=== PATIENT | female | born 1985 | race African-American/Black ===

== ENCOUNTER 2018-06-16 11:53 | Inpatient (IN) | payer MEDICAID ==
[~2018-06-16] VITALS: Ht 167.6 cm; Wt 90.7 kg
--- NOTE | 2018-06-16 11:54 | NUR ---
ED Nurse Note: Pt from home and brought in by ambulance due to abd. pain, sharp with N/V x 3 days. Hx of pancreatitis. Denies diarrhea. Pt is AAO x4, ambulates with assist. No respiratory distress. No signs of dehydration at this time.
[2018-06-16 12:00] VITALS: BP 140/89
[2018-06-16] MEDS ORDERED: Metoclopramide 10mg/2ml Inj IVP ONE (12:15)
[2018-06-16] MEDS ORDERED: Ketorolac 30mg Inj IV ONE (12:15)
--- NOTE | 2018-06-16 12:35 | NUR ---
ED Nurse Note: Collected blood and sent.
[2018-06-16 12:42] LABS: BASOPHILS % (AUTO) 0.9 % (0.0-2.0); EOSINOPHILS % (AUTO) 0.7 % (0.0-3.0); HEMATOCRIT 39.4 % (37.0-47.0); HEMOGLOBIN 12.2 G/DL (12.0-16.0); LYMPHOCYTES % (AUTO) 28.2 % (20.0-45.0); MEAN CORPUSCULAR VOLUME 84 FL (80-99); MONOCYTES % (AUTO) 8.4 % (1.0-10.0); NEUTROPHILS % (AUTO) 61.9 % (45.0-75.0); PLATELET COUNT 143 K/UL (150-450); RED BLOOD COUNT 4.69 M/UL (4.20-5.40); RED CELL DISTRIBUTION WIDTH 20.5 % (11.6-14.8); WHITE BLOOD COUNT 4.5 K/UL (4.8-10.8)
[2018-06-16 12:51] LABS: ANION GAP 14 mmol/L (5-15); BLOOD UREA NITROGEN 5 mg/dL (7-18); CALCIUM 9.3 MG/DL (8.5-10.1); CARBON DIOXIDE 21 MMOL/L (21-32); CHLORIDE 101 MMOL/L (98-107); CREATININE 0.9 MG/DL (0.55-1.30); POTASSIUM 3.9 MMOL/L (3.5-5.1); SODIUM 136 MMOL/L (136-145)
[2018-06-16 13:09] LABS: ALANINE AMINOTRANSFERASE 25 U/L (12-78); ALBUMIN 3.4 G/DL (3.4-5.0); ALBUMIN/GLOBULIN RATIO 0.7 (1.0-2.7); ALKALINE PHOSPHATASE 125 U/L (46-116); ASPARTATE AMINO TRANSFERASE 36 U/L (15-37); BILIRUBIN,TOTAL 0.7 MG/DL (0.2-1.0); CKMB 1.3 NG/ML (0.0-3.6)
[2018-06-16 13:26] LABS: APPEARANCE,URINE CLEAR; BILIRUBIN, URINE 1+ (NEGATIVE); GLUCOSE, URINE (UA) NEGATIVE (NEGATIVE); KETONES,URINE 4+ (NEGATIVE); LEUKOCYTE ESTERASE ,URINE 1+ (NEGATIVE); NITRITE,URINE NEGATIVE (NEGATIVE); PH,URINE 5 (4.5-8.0); PROTEIN,URINE 2+ (NEGATIVE); UROBILINOGEN,URINE 8 MG/DL (0.0-1.0)
[2018-06-16 13:34] LABS: COLOR,URINE YELLOW
--- NOTE | 2018-06-16 13:40 | NUR ---
ED Nurse Note: Pt taken to CT via tarun.
--- NOTE | 2018-06-16 13:51 | NUR ---
ED Nurse Note: Pt came back from CT.
[2018-06-16 14:00] VITALS: BP 152/80
--- NOTE | 2018-06-16 14:10 | NUR ---
ED Nurse Note: pt reports abd pain 10/, ERMD notified, no active n/v/d at this time.
[2018-06-16] MEDS ORDERED: Morphine Sulfate 2mg/ml Inj(IV/IM USE ONLY) IVP ONE (14:15)
--- NOTE | 2018-06-16 14:18 | Emergency Room Report ---
History of Present Illness General Chief Complaint: Abdominal Pain Source: Patient (Nu Cormier) Present Illness HPI 33-year-old female with history of pancreatitis here complaining of 2 days of severe abdominal pain and nausea vomiting. Reports that she was diagnosed with pancreatitis 6 years ago due to alcohol ingestion. She reports that she has not had any alcohol or any drug use. Denies recent travel and new medication use. States that her pain is epigastric radiating to back and diffuse abdomen as well as multiple bouts of nonbloody emesis. Patient is rating the pain 10 out of 10 and reports that she took a pill from her cousin which was a narcotic and did not help her with pain. Diarrhea or blood in stool. Fever, chills, URI symptoms. No chest pain, shortness of breath, palpitation, dizziness and headache. Patient appears in moderate distress and complaining of a lot of pain. She is here with her friend who she reports was on her way to drop him at the [facility] facility where she started having extreme pain and decided to come to the emergency room today. Patient denies having any recent blood work and having any primary care follow-up. His urinary symptoms (Nu Cormier) Allergies: Coded Allergies: No Known Allergies (Unverified , 06/16/18) Patient History Past Medical History: see triage record Past Surgical History: unable to obtain Social History: Reports: smoking Last Menstrual Period: Unknown Now: No Reviewed Nursing Documentation: PMH: Agreed; PSxH: Agreed (Nu Cormier) Nursing Documentation-PMH Hx Cardiac Problems: No - pancreatitis (Nu Cormier) Review of Systems All Other Systems: negative except mentioned in HPI (Nu Cormier) Physical Exam Vital Signs Date Time Temp Pulse Resp B/P (MAP) Pulse Ox O2 Delivery O2 Flow Rate FiO2 06/16/18 11:44 98.2 99 18 96 Room Air 06/16/18 12:00 140/89 Sp02 EP Interpretation: reviewed, normal General Appearance: alert, GCS 15, moderate distress Head: normocephalic, atraumatic Eyes: bilateral eye normal inspection, bilateral eye PERRL ENT: normal ENT inspection, hearing grossly normal, normal voice Neck: normal inspection, full range of motion, supple Respiratory: normal inspection, chest non-tender, lungs clear, no rhonchi, no wheezing Cardiovascular #1: normal inspection, regular rate, rhythm, no edema, no murmur , normal capillary refill Gastrointestinal: no mass, no organomegaly, no peritonitis, no bruit, non- distended, no hernia, no pulsatile mass, guarding - epigastric and diffuse Rectal: deferred Genitourinary: no CVA tenderness Musculoskeletal: normal inspection, back normal Neurologic: normal inspection, alert, oriented x3 Psychiatric: normal inspection, judgement/insight normal Skin: normal inspection, normal color, no rash, warm/dry, palpation normal Lymphatic: normal inspection, no adenopathy (Nu Cormier) Medical Decision Making PA Attestation All my diagnosis and treatment plans were reviewed ad discussed with my supervising physician Dr. Arechiga (Nu Cormier) Diagnostic Impression: Primary Impression: Pancreatitis Additional Impression: Midgut volvulus ER Course 33-year-old female with history of pancreatitis here complaining of 2 days of severe abdominal pain and nausea vomiting. Reports that she was diagnosed with pancreatitis 6 years ago due to alcohol ingestion. She reports that she has not had any alcohol or any drug use. Denies recent travel and new medication use. States that her pain is epigastric radiating to back and diffuse abdomen as well as multiple bouts of nonbloody emesis. Patient is rating the pain 10 out of 10 and reports that she took a pill from her cousin which was a narcotic and did not help her with pain. Diarrhea or blood in stool. Fever, chills, URI symptoms. No chest pain, shortness of breath, palpitation, dizziness and headache. Patient appears in moderate distress and complaining of a lot of pain. She is here with her friend who she reports was on her way to drop him at the [facility] facility where she started having extreme pain and decided to come to the emergency room today. Patient denies having any recent blood work and having any primary care follow-up. His urinary symptoms Ddx considered but are not limited to: appendicitis, cholycisitis, gastritis, gasthroentritis, UTI, pylonephritis, SBO, diverticulitis, influenza with GI manifestation, DC, complication with , pancreatitis Vital signs: are WNL, pt. 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 Patient was noted to have prior history of pancreatitis and similar symptoms to her current. laboratory testing laboratory testing showed markedly elevated lipase consistent with pancreatitis. CT imaging was ordered to patient's elevated lipase and concern for possible gallstone pancreatitis. CT imaging read by radiology showed peripancreatic stranding suggesting pancreatitis without pseudocyst. 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 Fatty liver. was contacted for surgical consult. Patient was started on IV fluids as well as IV pain medications. . Dr. Billy Esquivel was contacted for inpatient management due to panel physician. Labs Test 06/16/18 12:30 06/16/18 13:13 White Blood Count 4.5 K/UL (4.8-10.8) Red Blood Count 4.69 M/UL (4.20-5.40) Hemoglobin 12.2 G/DL (12.0-16.0) Hematocrit 39.4 % (37.0-47.0) Mean Corpuscular Volume 84 FL (80-99) Mean Corpuscular Hemoglobin 25.9 PG (27.0-31.0) Mean Corpuscular Hemoglobin Concent 30.9 G/DL (32.0-36.0) Red Cell Distribution Width 20.5 % (11.6-14.8) Platelet Count 143 K/UL (150-450) Mean Platelet Volume 6.8 FL (6.5-10.1) Neutrophils (%) (Auto) 61.9 % (45.0-75.0) Lymphocytes (%) (Auto) 28.2 % (20.0-45.0) Monocytes (%) (Auto) 8.4 % (1.0-10.0) Eosinophils (%) (Auto) 0.7 % (0.0-3.0) Basophils (%) (Auto) 0.9 % (0.0-2.0) Sodium Level 136 MMOL/L (136-145) Potassium Level 3.9 MMOL/L (3.5-5.1) Chloride Level 101 MMOL/L (98-107) Carbon Dioxide Level 21 MMOL/L (21-32) Anion Gap 14 mmol/L (5-15) Blood Urea Nitrogen 5 mg/dL (7-18) Creatinine 0.9 MG/DL (0.55-1.30) Estimat Glomerular Filtration Rate > 60 mL/min (>60) Glucose Level 98 MG/DL (74-106) Calcium Level 9.3 MG/DL (8.5-10.1) Total Bilirubin 0.7 MG/DL (0.2-1.0) Aspartate Amino Transf (AST/SGOT) 36 U/L (15-37) Alanine Aminotransferase (ALT/SGPT) 25 U/L (12-78) Alkaline Phosphatase 125 U/L (46-116) Creatine Kinase MB 1.3 NG/ML (0.0-3.6) Troponin I 0.000 ng/mL (0.000-0.056) Total Protein 8.1 G/DL (6.4-8.2) Albumin 3.4 G/DL (3.4-5.0) Globulin 4.7 g/dL Albumin/Globulin Ratio 0.7 (1.0-2.7) Lipase > 2000 U/L (73-393) Serum Alcohol < 3 mg/dL Urine Color Yellow Urine Appearance Clear Urine pH 5 (4.5-8.0) Urine Specific [place] 1.025 (1.005-1.035) Urine Protein 2+ (NEGATIVE) Urine Glucose (UA) Negative (NEGATIVE) Urine Ketones 4+ (NEGATIVE) Urine Blood 1+ (NEGATIVE) Urine Nitrite Negative (NEGATIVE) Urine Bilirubin 1+ (NEGATIVE) Urine Ictotest Negative (NEGATIVE) Urine Urobilinogen 8 MG/DL (0.0-1.0) Urine Leukocyte Esterase 1+ (NEGATIVE) Urine RBC 0-2 /HPF (0 - 2) Urine WBC 0-2 /HPF (0 - 2) Urine Squamous Epithelial Cells Few /LPF (NONE/OCC) Urine Bacteria Occasional /HPF (NONE) Urine Mucus Many /LPF (NONE/OCC) Urine HCG, Qualitative Negative (NEGATIVE) Urine Opiates Screen Positive (NEGATIVE) Urine Barbiturates Screen Negative (NEGATIVE) Phencyclidine (PCP) Screen Negative (NEGATIVE) Urine Amphetamines Screen Negative (NEGATIVE) Urine Benzodiazepines Screen Negative (NEGATIVE) Urine Cocaine Screen Negative (NEGATIVE) Urine Marijuana (THC) Screen Positive (NEGATIVE) (Carlin Arechiga MD) EKG Diagnostic Results Rate: normal Rhythm: NSR ST Segments: no acute changes (Nu Cormier) Chest X-Ray Diagnostic Results Chest X-Ray Diagnostic Results : Chest X-Ray Ordered: Yes # of Views/Limited/Complete: 1 View Indication: Other - abdominal pain EP Interpretation: Yes PA Xray: Interpretation reviewed, by supervising MD, and agrees with findings. Interpretation: no consolidation, no effusion, no pneumothorax, no acute cardiopulmonary disease Impression: No acute disease Electronically Signed by: nu mckenzie PA-C (Nu Cormier) CT/MRI/US Diagnostic Results CT/MRI/US Diagnostic Results : Imaging Test Ordered: abdominal and pelvic chest Impression CT CHEST Without Contrast: No acute process. CT ABDOMEN & PELVIS Without Contrast: Peripancreatic stranding suggesting pancreatitis. No pseudocyst. Bowel malrotation. Apparent swirling of bowel and vasculature in the mesentery suggesting midgut volvulus. No bowel obstruction. Fatty liver. (Nu Cormier) Last Vital Signs Date Time Temp Pulse Resp B/P (MAP) Pulse Ox O2 Delivery O2 Flow Rate FiO2 06/16/18 12:00 98.5 78 20 140/89 97 Room Air (Nu Cormier) Status: improved (Carlin Arechiga MD) Disposition: ADMITTED INPATIENT Condition: Stable Referrals: NOT CHOSEN IPA/,REFERRING (PCP) Patient Instructions: Abdominal Pain, Adult Nu Cormier June 16, 2018 14:18 Carlin Arechiga MD June 16, 2018 15:31
[2018-06-16] MEDS ORDERED: Morphine Sulfate 4mg/ml Inj (IV USE ONLY) IVP ONE (15:45)
--- NOTE | 2018-06-16 16:08 | NUR ---
ED Nurse Note: Report given to Artie MILLER of Med surg unit.
[2018-06-16 16:12] VITALS: BP 118/82
--- NOTE | 2018-06-16 16:17 | General Surgery Progress Note ---
General Surgery-Progress Note Subjective Reason for Consult abdominal pain Objective Last 24 Hour Vital Signs Date Time Temp Pulse Resp B/P (MAP) Pulse Ox O2 Delivery O2 Flow Rate FiO2 06/16/18 16:12 98.4 76 16 118/82 100 Room Air 06/16/18 14:00 97.9 86 16 152/80 98 Room Air 06/16/18 12:00 98.5 78 20 140/89 97 Room Air 06/16/18 11:54 99 18 Room Air 06/16/18 11:44 98.2 99 18 96 Room Air Respiratory: clear Abdomen: soft, flat, tenderness, decreased bowel sounds Extremities: no tenderness Laboratory Tests Test 06/16/18 12:30 06/16/18 13:13 White Blood Count 4.5 K/UL (4.8-10.8) L Red Blood Count 4.69 M/UL (4.20-5.40) Hemoglobin 12.2 G/DL (12.0-16.0) Hematocrit 39.4 % (37.0-47.0) Mean Corpuscular Volume 84 FL (80-99) Mean Corpuscular Hemoglobin 25.9 PG (27.0-31.0) L Mean Corpuscular Hemoglobin Concent 30.9 G/DL (32.0-36.0) L Red Cell Distribution Width 20.5 % (11.6-14.8) H Platelet Count 143 K/UL (150-450) L Mean Platelet Volume 6.8 FL (6.5-10.1) Neutrophils (%) (Auto) 61.9 % (45.0-75.0) Lymphocytes (%) (Auto) 28.2 % (20.0-45.0) Monocytes (%) (Auto) 8.4 % (1.0-10.0) Eosinophils (%) (Auto) 0.7 % (0.0-3.0) Basophils (%) (Auto) 0.9 % (0.0-2.0) Sodium Level 136 MMOL/L (136-145) Potassium Level 3.9 MMOL/L (3.5-5.1) Chloride Level 101 MMOL/L (98-107) Carbon Dioxide Level 21 MMOL/L (21-32) Anion Gap 14 mmol/L (5-15) Blood Urea Nitrogen 5 mg/dL (7-18) L Creatinine 0.9 MG/DL (0.55-1.30) Estimat Glomerular Filtration Rate > 60 mL/min (>60) Glucose Level 98 MG/DL (74-106) Calcium Level 9.3 MG/DL (8.5-10.1) Total Bilirubin 0.7 MG/DL (0.2-1.0) Aspartate Amino Transf (AST/SGOT) 36 U/L (15-37) Alanine Aminotransferase (ALT/SGPT) 25 U/L (12-78) Alkaline Phosphatase 125 U/L (46-116) H Creatine Kinase MB 1.3 NG/ML (0.0-3.6) Troponin I 0.000 ng/mL (0.000-0.056) Total Protein 8.1 G/DL (6.4-8.2) Albumin 3.4 G/DL (3.4-5.0) Globulin 4.7 g/dL Albumin/Globulin Ratio 0.7 (1.0-2.7) L Lipase > 2000 U/L (73-393) H Serum Alcohol < 3 mg/dL Urine Color Yellow Urine Appearance Clear Urine pH 5 (4.5-8.0) Urine Specific [place] 1.025 (1.005-1.035) Urine Protein 2+ (NEGATIVE) H Urine Glucose (UA) Negative (NEGATIVE) Urine Ketones 4+ (NEGATIVE) H Urine Blood 1+ (NEGATIVE) H Urine Nitrite Negative (NEGATIVE) Urine Bilirubin 1+ (NEGATIVE) H Urine Ictotest Negative (NEGATIVE) Urine Urobilinogen 8 MG/DL (0.0-1.0) H Urine Leukocyte Esterase 1+ (NEGATIVE) H Urine RBC 0-2 /HPF (0 - 2) Urine WBC 0-2 /HPF (0 - 2) Urine Squamous Epithelial Cells Few /LPF (NONE/OCC) Urine Bacteria Occasional /HPF (NONE) Urine Mucus Many /LPF (NONE/OCC) H Urine HCG, Qualitative Negative (NEGATIVE) Urine Opiates Screen Positive (NEGATIVE) H Urine Barbiturates Screen Negative (NEGATIVE) Phencyclidine (PCP) Screen Negative (NEGATIVE) Urine Amphetamines Screen Negative (NEGATIVE) Urine Benzodiazepines Screen Negative (NEGATIVE) Urine Cocaine Screen Negative (NEGATIVE) Urine Marijuana (THC) Screen Positive (NEGATIVE) H Assessment Additional Comments Pancreatitis Plan Additional Comments Requires ultrasound and G-I consultation and npo Fran Sun MD June 16, 2018 16:17
[2018-06-16 16:40] VITALS: BP 123/79
--- NOTE | 2018-06-16 16:40 | NUR ---
NURSE NOTES: Patient came to unit by tarun in stable condition. Alert and oriented x4. Complain of pain 8/10 on abdomen area and pain medication given by ER nurse. Will continue to monitor. Skin intact and dry. IV dressing intact and dry. Belonging checked. Bed lowest position. Call light within reach. Will continue to monitor.
--- NOTE | 2018-06-16 17:45 | Consultation ---
DATE OF CONSULTATION: 06/16/2018 CONSULTING PHYSICIAN: Fran Sun M.D. REFERRING PHYSICIAN: ER physician, Dr. Fritz. REASON FOR CONSULTATION: Abdominal pain. INDICATION: This is a 33-year-old, female, who presented to emergency room complaining of abdominal pain for three days. The pain is mainly located at the epigastrium and upper abdomen with radiation to her back. This pain has been associated with nausea and vomiting. She stated that she did not have any bowel movement but she has been she has been passing gas. 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 She stated that she usually has pancreatitis after drinking alcohol, spicy food, and greasy food and at this time she had a lobster after which she started having pain. PAST MEDICAL HISTORY: She denies allergies, asthma, diabetes, hypertension, cardiac, and renal diseases. PAST SURGICAL HISTORY: None. MEDICATIONS: None. SOCIAL HISTORY: The patient is a 33-year-old, female, who is single. Mother of two children. Unemployed. She smokes a cigar a day and she stated that she quit drinking a month ago. REVIEW OF SYSTEMS: Noncontributory. PHYSICAL EXAMINATION: GENERAL: The patient appeared to be a well-developed, well-nourished, 33-year-old, female, lying on the gurney, complaining of abdominal pain. HEENT: Head is normocephalic and atraumatic. Eyes, pupils are equal, round, and reactive to light. Mouth is clear. NECK: There is no palpable thyromegaly or adenopathy. CHEST: Clear to auscultation and percussion. HEART: No gallop or murmur. S1 and S2 are within normal limits. ABDOMEN: Mildly protuberant, but soft with tenderness at the epigastrium. There is no guarding or rebound tenderness. Bowel sounds are hypoactive. GENITALIA: Deferred. EXTREMITIES: Within normal limits. LABORATORY AND DIAGNOSTIC DATA: CBC has shown a WBC of 4500 with normal differential. Chemistry has shown the lipase over 2000. CAT scan of the abdomen has shown pancreatitis besides she has malrotation of the bowel but there is no bowel obstruction. ASSESSMENT: Acute pancreatitis. PLAN: The patient requires to be NPO on IV fluids and she requires a ultrasound of the gallbladder and GI consultation. Fran Sun M.D. DR: Dakotah JOB#: [id number] CC:
[2018-06-16] MEDS: Morphine Sulfate 2mg/ml Inj(IV/IM USE ONLY) IVP PRN ×2 (17:54→20:55)
--- NOTE | 2018-06-16 19:35 | NUR ---
HAND-OFF: Report given to Brenda MILLER. Patient in stable condition.
--- NOTE | 2018-06-16 19:50 | NUR ---
NURSE NOTES: Received pt from ANGELA Chowdhury. Pt awake, alert, and c/o pain. Bed in lowest position. Call light within reach. Will continue to monitor.
[2018-06-16 20:00] VITALS: BP 124/83
--- NOTE | 2018-06-16 21:06 | NUR ---
NURSE NOTES: Called and left a message with Dr. Esquivel regarding pts request for dilaudid instead of morphine. Awaiting call back.
--- NOTE | 2018-06-16 21:26 | NUR ---
NURSE NOTES: Dr. Esquivel gave orders for Dilaudid 1 mg Q3 and to DC morphine. Will input orders and will continue to monitor.
[2018-06-16 23:06] VITALS: BP 138/83
[2018-06-16] MEDS: HYDROmorphone 1mg/ml Carpuject IVP PRN (23:49)
[2018-06-17] MEDS: HYDROmorphone 1mg/ml Carpuject IVP PRN ×7 (03:04→21:06)
[2018-06-17 03:10] VITALS: BP 115/76
[2018-06-17 07:06] LABS: BASOPHILS % (AUTO) 0.5 % (0.0-2.0); EOSINOPHILS % (AUTO) 0.5 % (0.0-3.0); HEMATOCRIT 34.9 % (37.0-47.0); HEMOGLOBIN 10.9 G/DL (12.0-16.0); LYMPHOCYTES % (AUTO) 23.2 % (20.0-45.0); MEAN CORPUSCULAR VOLUME 85 FL (80-99); MONOCYTES % (AUTO) 8.2 % (1.0-10.0); NEUTROPHILS % (AUTO) 67.5 % (45.0-75.0); PLATELET COUNT 128 K/UL (150-450); RED BLOOD COUNT 4.11 M/UL (4.20-5.40); RED CELL DISTRIBUTION WIDTH 20.7 % (11.6-14.8); WHITE BLOOD COUNT 6.1 K/UL (4.8-10.8)
[2018-06-17 07:22] LABS: ALANINE AMINOTRANSFERASE 21 U/L (12-78); ALBUMIN 3.1 G/DL (3.4-5.0); ALBUMIN/GLOBULIN RATIO 0.8 (1.0-2.7); ALKALINE PHOSPHATASE 106 U/L (46-116); ANION GAP 14 mmol/L (5-15); ASPARTATE AMINO TRANSFERASE 27 U/L (15-37); BILIRUBIN,TOTAL 0.7 MG/DL (0.2-1.0); BLOOD UREA NITROGEN 4 mg/dL (7-18); CALCIUM 8.5 MG/DL (8.5-10.1); CARBON DIOXIDE 20 MMOL/L (21-32); CHLORIDE 101 MMOL/L (98-107); CREATININE 0.7 MG/DL (0.55-1.30); POTASSIUM 3.3 MMOL/L (3.5-5.1); SODIUM 135 MMOL/L (136-145)
--- NOTE | 2018-06-17 07:34 | NUR ---
NURSE NOTES: Received report from ANGELA Gutierrez. Rounding done with outgoing nurse. Patient a/o x4 lying on the bed. No respiratory distress noted. c/o abdominal pain as 8/10 and pain medicine will be given as MD ordered around 0900. Patient verbalized understanding. Patient keep NPO. Bed in lowest position, call light within reach. Will continue to monitor.
[2018-06-17 08:00] VITALS: BP 136/89
[2018-06-17] MEDS ORDERED: Gadavist 7.5mMol/7.5ml vial IV PRN (09:30)
--- NOTE | 2018-06-17 10:31 | Diagnostic Imaging Report ---
Indication: Chest and abdominal pain Technique: Continuous helical transaxial imaging of the chest, abdomen and pelvis was obtained from the thoracic inlet to the pubic symphysis. No IV contrast was administered. Coronal 2-D reformats were also obtained. Study obtained in a Siemens sensation [address] Total Dose length Product (DLP): 991.[address] Dose Index Volume (CTDIvol): 15.31 mGy Comparison: None Findings: The lungs are clear. There is no infiltrate or pleural effusion identified. No adenopathy seen. The liver is diffusely hypodense consistent with fatty infiltration. There is peripancreatic soft tissue stranding consistent with pancreatitis. There is evidence of a midgut malrotation with the twisting of the mesentery which has a sore-like appearance. The duodenum never crosses midline from right to left. There is no evidence of intestinal obstruction although contrast was not given orally. The uterus is noted. There is no ascites. There is no free air or evidence of pneumatosis. Breathing motion limits evaluation. Spleen is normal size. There is no hydronephrosis or nephrolithiasis. IMPRESSION: Evidence of acute pancreatitis. 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 No evidence of bowel obstruction. Fatty liver [facility] has communicated the preliminary results to the Emergency Department. Their findings are largely concordant with this report. The CT scanner at [facility] is accredited by the [employer] [place] [employer] and the scans are performed using dose optimization techniques as appropriate to a performed exam including Automatic Exposure control.
--- NOTE | 2018-06-17 11:18 | NUR ---
*-* NO INSURANCE INFORMATION IN THE BAR UNABLE TO SEND CLINICALS OR REVIEWS *-*
--- NOTE | 2018-06-17 11:52 | Diagnostic Imaging Report ---
Indication: Dyspnea Comparison: None A single view chest radiograph was obtained. Findings: Cardiomediastinal appearance is within normal limits for age. The lungs are clear. Left hemidiaphragm is elevated. Pulmonary vascularity is appropriate. The diaphragmatic contour is smooth and costophrenic angles are sharp. No pleural effusions are identified. The bones are unremarkable. Impression: Elevated left hemidiaphragm
[2018-06-17 12:00] VITALS: BP 137/91
--- NOTE | 2018-06-17 12:10 | Diagnostic Imaging Report ---
Indication:Abdominal pain Technique: Grayscale and duplex Doppler imaging of the abdomen performed. Comparison: None Findings: The liver is echogenic consistent with fatty infiltration. The gallbladder is unremarkable. Pancreas and aorta are not seen due to bowel gas. Both kidneys appear unremarkable. The spleen is normal in size. There is no biliary ductal dilatation identified. Doppler evaluation of the main portal vein shows patency. There is no ascites. No hydronephrosis seen. CBD is 2.5 mm. Impression: Fatty liver. Obscured pancreas and aorta. Please refer to the CT report
[2018-06-17] MEDS: LORazepam Inj 2mg/ml 1ml IV PRN (12:41)
--- NOTE | 2018-06-17 14:39 | General Surgery Progress Note ---
General Surgery-Progress Note Subjective Additional Comments still has pain but responds to medication Objective Last 24 Hour Vital Signs Date Time Temp Pulse Resp B/P (MAP) Pulse Ox O2 Delivery O2 Flow Rate FiO2 06/17/18 12:00 97.3 98 21 137/91 (106) 97 06/17/18 09:00 Room Air 06/17/18 08:00 98.6 73 20 136/89 (105) 98 06/17/18 03:10 97.8 75 115/76 (89) 100 06/16/18 23:06 98.3 80 138/83 (101) 100 06/16/18 21:00 Room Air 06/16/18 20:00 97.4 73 124/83 (97) 100 06/16/18 16:45 Room Air 06/16/18 16:40 98.3 73 18 123/79 (94) 98 06/16/18 16:34 98.0 83 20 122/78 100 Room Air 06/16/18 16:28 98.0 06/16/18 16:12 98.4 76 16 118/82 100 Room Air 06/16/18 14:53 98.0 Respiratory: clear Abdomen: soft, flat, tenderness, present bowel sounds Extremities: no tenderness Laboratory Tests Test 06/17/18 05:00 White Blood Count 6.1 K/UL (4.8-10.8) Red Blood Count 4.11 M/UL (4.20-5.40) L Hemoglobin 10.9 G/DL (12.0-16.0) L Hematocrit 34.9 % (37.0-47.0) L Mean Corpuscular Volume 85 FL (80-99) Mean Corpuscular Hemoglobin 26.6 PG (27.0-31.0) L Mean Corpuscular Hemoglobin Concent 31.3 G/DL (32.0-36.0) L Red Cell Distribution Width 20.7 % (11.6-14.8) H Platelet Count 128 K/UL (150-450) L Mean Platelet Volume 6.6 FL (6.5-10.1) Neutrophils (%) (Auto) 67.5 % (45.0-75.0) Lymphocytes (%) (Auto) 23.2 % (20.0-45.0) Monocytes (%) (Auto) 8.2 % (1.0-10.0) Eosinophils (%) (Auto) 0.5 % (0.0-3.0) Basophils (%) (Auto) 0.5 % (0.0-2.0) Sodium Level 135 MMOL/L (136-145) L Potassium Level 3.3 MMOL/L (3.5-5.1) L Chloride Level 101 MMOL/L (98-107) Carbon Dioxide Level 20 MMOL/L (21-32) L Anion Gap 14 mmol/L (5-15) Blood Urea Nitrogen 4 mg/dL (7-18) L Creatinine 0.7 MG/DL (0.55-1.30) Estimat Glomerular Filtration Rate > 60 mL/min (>60) Glucose Level 65 MG/DL (74-106) L Calcium Level 8.5 MG/DL (8.5-10.1) Total Bilirubin 0.7 MG/DL (0.2-1.0) Aspartate Amino Transf (AST/SGOT) 27 U/L (15-37) Alanine Aminotransferase (ALT/SGPT) 21 U/L (12-78) Alkaline Phosphatase 106 U/L (46-116) Total Protein 7.1 G/DL (6.4-8.2) Albumin 3.1 G/DL (3.4-5.0) L Globulin 4.0 g/dL Albumin/Globulin Ratio 0.8 (1.0-2.7) L Lipase > 2000 U/L (73-393) H Assessment Additional Comments pancreatitis Plan Additional Comments G-I consult Fran Sun MD June 17, 2018 14:39
--- NOTE | 2018-06-17 15:00 | Diagnostic Imaging Report ---
Indication: Acute pancreatitis. Abdominal pain Technique: MRI of the abdomen was performed in a 1.5 Bethanie magnet. Pulse sequences obtained include coronal and axial T2 single shot fast spin echo breathhold and respiratory gated coronal T2 3-D M.R.C.P.; this data set was displayed in different projections or MIPs. In addition, multiple coronal oblique thin T2 weighted, fat saturated SE sequences obtained through the CBD. Comparison: None Findings: The study is very limited due to breathing motion. The biliary ducts do not appear dilated. There is peripancreatic T2 hyperintense signal consistent with edema and inflammation. Midgut malrotation again noted with a swirl-like pattern of the dorsal mesenteric vessels. Gallbladder is noted. There is a fluid level within the gallbladder likely bilingual inside sales representative of sludge. IMPRESSION: Limited evaluation due to breathing motion. No evidence of biliary ductal dilatation or choledocholithiasis. Acute pancreatitis. Gallbladder sludge. Midgut malrotation
--- NOTE | 2018-06-17 15:54 | NUR ---
CASE MANAGEMENT:REVIEW 33 YR OLD FEMALE CRESENCIO FROM HOME CC: ABDOMINAL PAIN WITH NAUSEA AND VOMITING SI: PANCREATITIS. MID GUT VOLVULUS 98.3 99 18 134/100 96% ON RA PLT-143 LIPASE>2000 IS: IV REGLAN IV PEPCID IV TORADOL IV ZOFRAN IV MORPHINE MRI ABD : TO MED/SURG 3 E[facility] Addendum: 06/17/18 at 1603 by ZENAIDA LYONS LVN LVN IS: IVF@100/HR
[2018-06-17 16:00] VITALS: BP 135/80
--- NOTE | 2018-06-17 16:15 | History and Physical Report ---
DATE OF ADMISSION: 06/16/2018 REASON FOR ADMISSION: Pancreatitis. HISTORY OF PRESENT ILLNESS: This is a 33-year-old female, presented with abdominal pain for three days. The patient has had prior history of pancreatitis due to remote history of alcohol use, none recently. The patient with current bouts at present, has not been able to keep any food down. PAST MEDICAL HISTORY: Notable for the above. History of asthma, diabetes, and hypertension, is denied. SOCIAL HISTORY: She is a mother, unemployed. Quit drinking one month ago. PHYSICAL EXAMINATION: GENERAL: A well-developed female, comfortable. VITAL SIGNS: Reviewed. HEENT: Negative. NECK: Supple. LUNGS: Clear. CARDIAC: S1, S2. Regular rate and rhythm. ABDOMEN: Some epigastric tenderness. EXTREMITIES: No edema. LABORATORY DATA: Reviewed. IMPRESSION: Acute pancreatitis. RECOMMENDATIONS: 1. NPO. 2. Intravenous hydration. 3. Await improvement in subjective and objective symptoms, and await further GI recommendations. Billy Esquivel M.D. DR: ANDRES JOB#: [id number] CC:
--- NOTE | 2018-06-17 19:00 | Consultation ---
DATE OF CONSULTATION: 06/17/2018 GASTROENTEROLOGY CONSULTATION: CONSULTING PHYSICIAN: Riley Bolton M.D. CHIEF COMPLAINT: I was asked to see this patient by Dr. Billy Esquivel for evaluation of pancreatitis. HISTORY OF PRESENT ILLNESS: The patient is a 33-year-old, woman with a history of recurrent pancreatitis going back for about 5 to 6 years. She states she gets admitted to the hospital about 3 times a year each lasting about 3 to 4 days. She is not clear of any diagnosis, but she cannot recall ever having an MRI done or an ERCP performed. She still has a gallbladder. She does have alcohol consumption history, but she states she has basically cut her alcohol completely. She believes pancreatitis may be triggered by certain foods such as greasy foods or spicy foods. She came to the hospital with 3 to 4 days of abdominal pain, nausea, vomiting, and her lipase was significantly elevated consistent with pancreatitis. She cannot recall having any history of hypertriglyceridemia. PAST MEDICAL HISTORY: Otherwise unremarkable. FAMILY HISTORY: Noncontributory. PAST SURGICAL HISTORY: Status post x2. SOCIAL HISTORY: The patient is single. She has two children. She is unemployed. She smokes cigars and she intermittently uses marijuana. REVIEW OF SYSTEMS: Otherwise negative. PHYSICAL EXAMINATION: GENERAL: Obese, woman, seen in her room. HEENT: Normocephalic and atraumatic. Sclerae anicteric. Oropharynx clear. NECK: Supple. CHEST: Clear to auscultation. CARDIOVASCULAR: Revealed a regular rate. ABDOMEN: Soft. Tenderness to palpation in the epigastric region with mild voluntary guarding, but no rebound. EXTREMITIES: Revealed no edema. LABORATORY DATA: Noted. ASSESSMENT: This patient presents with an episode of recurrent pancreatitis of unclear etiology. Typically with this history, one would look for causes of chronic pancreatitis, which could include self-induced conditions such as alcohol use. The patient should have an MRI of her biliary tree to rule out stones, which have not been seen on other imaging modalities done previously and also pancreas divisum. She should also be checked for triglycerides. I advised the patient to go to the center for pancreatic excellence such as [facility] or [facility] or [facility] after this discharge in order to consult the center that has experience in handling the patients with chronic recurrent pancreatitis. For the time being, however, some of the workup, which may have not been done including an MRI will be performed. The patient should be considered for ERCP and/or a sphincter of Oddi manometry as an outpatient. RECOMMENDATIONS: 1. Continue NPO for now. 2. Pain control. 3. IV fluids. 4. MRI of the biliary tree. 5. Check a lipid profile. Thank you for asking me to participate in care of this patient. Riley Bolton M.D. DR: TOD JOB#: [id number] CC:
--- NOTE | 2018-06-17 19:40 | NUR ---
HAND-OFF: Report given to ANGELA Fischer. Patient is stable.
--- NOTE | 2018-06-17 19:45 | NUR ---
NURSE NOTES: Pt lying in bed w/bed in lowest position and call light within reach. Pt A&Ox4, VSS, and in no apparent distress at this time. IV site intact/asymptomatic w/IVF @ 100 ml/hr and skin intact. Will continue to monitor.
[2018-06-17 20:00] VITALS: BP 128/89
[2018-06-18] VITALS: BP 126/86
[2018-06-18] MEDS: HYDROmorphone 1mg/ml Carpuject IVP PRN ×8 (00:03→21:31)
[2018-06-18 04:00] VITALS: BP 128/78
[2018-06-18 07:07] LABS: ANION GAP 11 mmol/L (5-15); BLOOD UREA NITROGEN 2 mg/dL (7-18); CALCIUM 8.9 MG/DL (8.5-10.1); CARBON DIOXIDE 22 MMOL/L (21-32); CHLORIDE 101 MMOL/L (98-107); CHOLESTEROL 173 MG/DL (< 200); CREATININE 0.6 MG/DL (0.55-1.30); HDL CHOLESTEROL 50 MG/DL (40-60); POTASSIUM 3.9 MMOL/L (3.5-5.1); SODIUM 134 MMOL/L (136-145); TRIGLYCERIDES 62 MG/DL (30-150)
--- NOTE | 2018-06-18 07:30 | NUR ---
HAND-OFF: Report given to ANGELA Ohara.
--- NOTE | 2018-06-18 07:45 | NUR ---
NURSE NOTES: During shift change patient alert awake with out no distress call light with in reach bed on low position locked reporting pain 6/10 abdomen, medication will be given when it is due.
--- NOTE | 2018-06-18 08:20 | General Progress Note ---
Assessment/Plan Assessment/Plan: IMPRESSION: Acute pancreatitis. PLAN NPO hydration pain management MRI noted defer PO to GI impression, plan, and exam edited and reviewed in detail care discussed with RN Subjective Allergies: Coded Allergies: No Known Allergies (Unverified , 06/16/18) Subjective some abdominal pain Objective Last 24 Hour Vital Signs Date Time Temp Pulse Resp B/P (MAP) Pulse Ox O2 Delivery O2 Flow Rate FiO2 06/18/18 04:00 98.3 79 18 128/78 (95) 100 06/18/18 00:00 98.3 88 18 126/86 (99) 100 06/17/18 21:00 Room Air 06/17/18 20:00 98.3 83 18 128/89 (102) 100 06/17/18 16:00 98.3 82 20 135/80 (98) 100 06/17/18 12:00 97.3 98 21 137/91 (106) 97 06/17/18 09:00 Room Air Intake and Output 06/17/18 06/18/18 18:59 06:59 Intake Total 900 ml Balance 900 ml Intake IV Total 900 ml # Voids 2 1 Laboratory Tests 06/18/18 05:15: Sodium Level 134L, Potassium Level 3.9, Chloride Level 101, Carbon Dioxide Level 22, Anion Gap 11, Blood Urea Nitrogen 2L, Creatinine 0.6, Estimat Glomerular Filtration Rate > 60, Glucose Level 55L, Calcium Level 8.9, Triglycerides Level 62, Cholesterol Level 173, LDL Cholesterol 105H, HDL Cholesterol 50, Cholesterol/HDL Ratio 3.5, Amylase Level 136H, Lipase 1212H Height (Feet): 5 Height (Inches): 6.00 Weight (Pounds): 200 Objective GENERAL: A well-developed female, comfortable. HEENT: Negative. NECK: Supple. LUNGS: Clear. CARDIAC: S1, S2. Regular rate and rhythm. ABDOMEN: Some epigastric tenderness. EXTREMITIES: No edema. Billy Esquivel MD June 18, 2018 08:20
[2018-06-18 08:24] VITALS: BP 115/78
[2018-06-18 12:00] VITALS: BP 138/90
--- NOTE | 2018-06-18 13:11 | NUR ---
*-* INSURANCE *-* CLINICALS AND REVIEWS HAVE BEEN FAXED TO: [facility] P:[phone] F:[phone]
--- NOTE | 2018-06-18 13:59 | NUR ---
CASE MANAGEMENT:REVIEW 06/18/18 SI: PANCREATITIS 98.3 70 20 115/78 97% ON RA LIPASE+1212 IS: IVF@100/HR IV DILAUDID Q3HRS PRN IV ATIVAN Q3HRS PRN IV ZOFRAN Q6HRS PRN : MED/SURG STATUS 3 EAST DCP: FROM HOME PLAN: START CLEAR LIQUIDS CONSIDER ERCP MRI OF BILIARY TREE PAIN CONTROL
[2018-06-18 15:38] VITALS: BP 115/93
--- NOTE | 2018-06-18 19:45 | NUR ---
NURSE NOTES: Pt lying in bed w/bed in lowest position and call light within reach. Pt A&Ox4, VSS, and in no apparent distress. IV site intact/asymptomatic w/IVF infusing and skin intact. Will continue to monitor.
[2018-06-18 20:00] VITALS: BP 132/93
--- NOTE | 2018-06-18 20:17 | NUR ---
HAND-OFF: Report given to ANGELA Doyle patient stable condition.
[2018-06-19] VITALS: BP 127/75
--- NOTE | 2018-06-19 00:11 | General Progress Note ---
Assessment/Plan Assessment/Plan: Assessment - Acute recurrent pancreatitis - suspected gallbladder sludge, based on MRI report Recommendations - clear liquid diet - monitor labs - pain control - surgical opinion re eventual cholecystectomy (Delayed Entry - Date of service 06/18/18) Subjective Allergies: Coded Allergies: No Known Allergies (Unverified , 06/16/18) Subjective Feels better still with abd pain, but improved had MRI yesterday - Study suggestive of GB sludge Objective Last 24 Hour Vital Signs Date Time Temp Pulse Resp B/P (MAP) Pulse Ox O2 Delivery O2 Flow Rate FiO2 06/18/18 21:00 Room Air 06/18/18 20:00 97.9 87 18 132/93 (106) 100 06/18/18 15:59 98.3 06/18/18 15:38 98.0 79 20 115/93 (100) 100 06/18/18 12:00 98.1 77 21 138/90 (106) 100 06/18/18 09:00 Room Air 06/18/18 08:24 98.3 70 20 115/78 (90) 97 06/18/18 04:00 98.3 79 18 128/78 (95) 100 Intake and Output 06/18/18 06/19/18 19:00 07:00 Intake Total 240 ml 150 ml Balance 240 ml 150 ml Intake Oral 240 ml 150 ml # Voids 2 Laboratory Tests 06/18/18 05:15: Sodium Level 134L, Potassium Level 3.9, Chloride Level 101, Carbon Dioxide Level 22, Anion Gap 11, Blood Urea Nitrogen 2L, Creatinine 0.6, Estimat Glomerular Filtration Rate > 60, Glucose Level 55L, Calcium Level 8.9, Triglycerides Level 62, Cholesterol Level 173, LDL Cholesterol 105H, HDL Cholesterol 50, Cholesterol/HDL Ratio 3.5, Amylase Level 136H, Lipase 1212H Height (Feet): 5 Height (Inches): 6.00 Weight (Pounds): 200 Objective Obese AA woman NCAT supple CTA RRR abd soft ND, (+) epigastric TTP but improved no edema non focal Riley Bolton MD June 19, 2018 00:11
[2018-06-19] MEDS: HYDROmorphone 1mg/ml Carpuject IVP PRN ×8 (00:32→21:56)
[2018-06-19 04:00] VITALS: BP 128/78
--- NOTE | 2018-06-19 07:26 | NUR ---
HAND-OFF: Report given to ANGELA Crews.
--- NOTE | 2018-06-19 07:30 | NUR ---
NURSE NOTES: Received report from Aaliyah MILLER. Patient is awake alert and oriented x4, no acute distress noted. Patient reports her pain is decreasing following dilaudid administration. Tolerating clear liquid diet well. IV intact and asymptomatic, running IVF as ordered. SCD not on, patient refuses despite provided education. Patient updated on plan of care. Side rails upx2, bed low and locked, call light in reach. Will continue to monitor.
[2018-06-19 07:51] LABS: ALANINE AMINOTRANSFERASE 21 U/L (12-78); ALBUMIN 3.2 G/DL (3.4-5.0); ALBUMIN/GLOBULIN RATIO 0.7 (1.0-2.7); ALKALINE PHOSPHATASE 100 U/L (46-116); ANION GAP 13 mmol/L (5-15); ASPARTATE AMINO TRANSFERASE 24 U/L (15-37); BILIRUBIN,TOTAL 0.6 MG/DL (0.2-1.0); BLOOD UREA NITROGEN 1 mg/dL (7-18); CALCIUM 9.3 MG/DL (8.5-10.1); CARBON DIOXIDE 23 MMOL/L (21-32); CHLORIDE 102 MMOL/L (98-107); CREATININE 0.6 MG/DL (0.55-1.30); POTASSIUM 3.8 MMOL/L (3.5-5.1); SODIUM 137 MMOL/L (136-145)
[2018-06-19 08:00] VITALS: BP 120/74
[2018-06-19 08:14] LABS: BASOPHILS % (AUTO) 0.6 % (0.0-2.0); EOSINOPHILS % (AUTO) 1.4 % (0.0-3.0); HEMATOCRIT 38.2 % (37.0-47.0); HEMOGLOBIN 11.7 G/DL (12.0-16.0); LYMPHOCYTES % (AUTO) 32.3 % (20.0-45.0); MEAN CORPUSCULAR VOLUME 86 FL (80-99); MONOCYTES % (AUTO) 9.4 % (1.0-10.0); NEUTROPHILS % (AUTO) 56.3 % (45.0-75.0); PLATELET COUNT 140 K/UL (150-450); RED BLOOD COUNT 4.45 M/UL (4.20-5.40); RED CELL DISTRIBUTION WIDTH 20.5 % (11.6-14.8); WHITE BLOOD COUNT 3.9 K/UL (4.8-10.8)
--- NOTE | 2018-06-19 09:35 | General Progress Note ---
Assessment/Plan Assessment/Plan: IMPRESSION: Acute pancreatitis. PLAN advance diet no fat hydration pain management MRI noted surgical eval to outpatient ? dc impression, plan, and exam edited and reviewed in detail care discussed with RN Subjective Allergies: Coded Allergies: No Known Allergies (Unverified , 06/16/18) Subjective improved Objective Last 24 Hour Vital Signs Date Time Temp Pulse Resp B/P (MAP) Pulse Ox O2 Delivery O2 Flow Rate FiO2 06/19/18 08:00 98.0 74 16 120/74 (89) 100 06/19/18 04:00 100.0 71 18 128/78 (95) 98 06/19/18 00:00 98.5 80 18 127/75 (92) 97 06/18/18 21:00 Room Air 06/18/18 20:00 97.9 87 18 132/93 (106) 100 06/18/18 15:59 98.3 06/18/18 15:38 98.0 79 20 115/93 (100) 100 06/18/18 12:00 98.1 77 21 138/90 (106) 100 Intake and Output 06/18/18 06/19/18 18:59 06:59 Intake Total 240 ml 150 ml Balance 240 ml 150 ml Intake Oral 240 ml 150 ml # Voids 4 Laboratory Tests 06/19/18 06:01: White Blood Count 3.9L, Red Blood Count 4.45, Hemoglobin 11.7L, Hematocrit 38.2 , Mean Corpuscular Volume 86, Mean Corpuscular Hemoglobin 26.3L, Mean Corpuscular Hemoglobin Concent 30.6L, Red Cell Distribution Width 20.5H, Platelet Count 140L, Mean Platelet Volume 7.1, Neutrophils (%) (Auto) 56.3, Lymphocytes (%) (Auto) 32.3, Monocytes (%) (Auto) 9.4, Eosinophils (%) (Auto) 1.4, Basophils (%) (Auto) 0.6, Sodium Level 137, Potassium Level 3.8, Chloride Level 102, Carbon Dioxide Level 23, Anion Gap 13, Blood Urea Nitrogen 1L, Creatinine 0.6, Estimat Glomerular Filtration Rate > 60, Glucose Level 58L, Calcium Level 9.3, Total Bilirubin 0.6, Aspartate Amino Transf (AST/SGOT) 24, Alanine Aminotransferase (ALT/SGPT) 21, Alkaline Phosphatase 100, Total Protein 7.8, Albumin 3.2L, Globulin 4.6, Albumin/Globulin Ratio 0.7L, Lipase 510H Height (Feet): 5 Height (Inches): 6.00 Weight (Pounds): 200 Objective GENERAL: A well-developed female, comfortable. HEENT: Negative. NECK: Supple. LUNGS: Clear. CARDIAC: S1, S2. Regular rate and rhythm. ABDOMEN: Some epigastric tenderness. EXTREMITIES: No edema. Billy Esquivel MD June 19, 2018 09:35
--- NOTE | 2018-06-19 10:05 | NUR ---
*-* INSURANCE *-* UPDATED CLINICALS AND REVIEWS HAVE BEEN FAXED TO: [facility] [address] P:[phone] F:[phone] Addendum: 06/19/18 at 1559 by JAQUELINE CESAR F:[phone]
[2018-06-19 12:00] VITALS: BP 122/72
--- NOTE | 2018-06-19 14:39 | NUR ---
CASE MANAGEMENT:REVIEW 06/19/18 SI: PANCREATITIS 100.0 77 16 122/72 99% ON RA GLUCOSE-58 LIPASE+510 IS: IVF@100/HR IV DILAUDID Q3HRS PRN IV ATIVAN Q3HRS PRN IV ZOFRAN Q6HRS PRN : MED/SURG STATUS 3 EAST DCP: FROM HOME PLAN: ADVANCE TO REGULAR DIET PAIN CONTROL
[2018-06-19 16:00] VITALS: BP 129/85
--- NOTE | 2018-06-19 19:30 | NUR ---
NURSE NOTES: Received report from ANGELA Crews and rounds done. Received pt in bed, AOX4, pain level 8/10, pain medication not yet due. IV R AC patent and intact. IV fluid infusing as ordered. Safety measures maintained. Bed in lowest position and locked, side rails up x 2, call light within reach. Will continue to monitor.
--- NOTE | 2018-06-19 19:47 | NUR ---
HAND-OFF: Report given to Wil MILLER. Patient is in stable condition.
[2018-06-19 20:00] VITALS: BP 133/84
--- NOTE | 2018-06-19 21:43 | General Progress Note ---
Assessment/Plan Assessment/Plan: Assessment - Acute recurrent pancreatitis - suspected gallbladder sludge, based on MRI report Recommendations - clear liquid diet - monitor labs - pain control - surgical opinion re eventual cholecystectomy Subjective Allergies: Coded Allergies: No Known Allergies (Unverified , 06/16/18) Subjective Feels better still with abd pain, but improved advised to see a surgeon as outpatient to discuss possible lap chlole Alternatively, she was also given option of getting outpatient ERCP or EUS to better investigate possible gallstones Objective Last 24 Hour Vital Signs Date Time Temp Pulse Resp B/P (MAP) Pulse Ox O2 Delivery O2 Flow Rate FiO2 06/19/18 20:00 97.7 79 18 133/84 (100) 100 06/19/18 19:29 98.9 06/19/18 16:00 98.9 84 16 129/85 (100) 99 06/19/18 12:00 98.2 77 16 122/72 (89) 99 06/19/18 09:00 Room Air 06/19/18 08:00 98.0 74 16 120/74 (89) 100 06/19/18 04:00 100.0 71 18 128/78 (95) 98 06/19/18 00:00 98.5 80 18 127/75 (92) 97 Intake and Output 06/18/18 06/19/18 19:00 07:00 Intake Total 240 ml 250 ml Balance 240 ml 250 ml Intake Oral 240 ml 150 ml IV Total 100 ml # Voids 4 Laboratory Tests 06/19/18 06:01: White Blood Count 3.9L, Red Blood Count 4.45, Hemoglobin 11.7L, Hematocrit 38.2 , Mean Corpuscular Volume 86, Mean Corpuscular Hemoglobin 26.3L, Mean Corpuscular Hemoglobin Concent 30.6L, Red Cell Distribution Width 20.5H, Platelet Count 140L, Mean Platelet Volume 7.1, Neutrophils (%) (Auto) 56.3, Lymphocytes (%) (Auto) 32.3, Monocytes (%) (Auto) 9.4, Eosinophils (%) (Auto) 1.4, Basophils (%) (Auto) 0.6, Sodium Level 137, Potassium Level 3.8, Chloride Level 102, Carbon Dioxide Level 23, Anion Gap 13, Blood Urea Nitrogen 1L, Creatinine 0.6, Estimat Glomerular Filtration Rate > 60, Glucose Level 58L, Calcium Level 9.3, Total Bilirubin 0.6, Aspartate Amino Transf (AST/SGOT) 24, Alanine Aminotransferase (ALT/SGPT) 21, Alkaline Phosphatase 100, Total Protein 7.8, Albumin 3.2L, Globulin 4.6, Albumin/Globulin Ratio 0.7L, Lipase 510H Height (Feet): 5 Height (Inches): 6.00 Weight (Pounds): 200 Objective Obese AA woman NCAT supple CTA RRR abd soft ND, (+) epigastric TTP but improved no edema non focal Riley Bolton MD June 19, 2018 21:43
[2018-06-20] VITALS: BP 136/79
[2018-06-20] MEDS: HYDROmorphone 1mg/ml Carpuject IVP PRN ×4 (00:55→10:19)
[2018-06-20] MEDS: LORazepam Inj 2mg/ml 1ml IV PRN ×3 (01:32→22:15)
[2018-06-20 04:00] VITALS: BP 108/76
--- NOTE | 2018-06-20 07:38 | NUR ---
HAND-OFF: Report given to ANGELA Oconnor. Pt in stable condition.
[2018-06-20 08:00] VITALS: BP 113/71
--- NOTE | 2018-06-20 08:00 | NUR ---
NURSE NOTES: Received report from Wil Villalba pt a/a/o x4 laying in bed with no signs of distress or other issues at this time. IV on the right hand gauge #20 patent and intact. pt requested her pain medication, RN explained to patient that she is not due a this time, RN also educated pt that her pain medication is not schedule until 10:00am. pt verbalized understanding. pt on a regular, low fat diet. pt is tolerating it well with no signs of n/v. call light within reach, bed in lowest position. side rales up x2. I will f/u as needed.
--- NOTE | 2018-06-20 08:45 | NUR ---
CASE MANAGEMENT:REVIEW 06/20/18 SI: PANCREATITIS 98.2 86 19 113/71 97% ON RA IS: IVF@100/HR IV DILAUDID Q3HRS PRN IV ATIVAN Q3HRS PRN IV ZOFRAN Q6HRS PRN : MED/SURG STATUS 3 EAST DCP: FROM HOME PLAN: ADVANCE TO REGULAR DIET PAIN CONTROL
--- NOTE | 2018-06-20 09:41 | General Progress Note ---
Assessment/Plan Assessment/Plan: Assessment - Acute recurrent pancreatitis - suspected gallbladder sludge, based on MRI report Recommendations -low fat diet - monitor labs - pain control - surgical opinion re eventual cholecystectomy - d/c planning for tomorrow Subjective Allergies: Coded Allergies: No Known Allergies (Unverified , 06/16/18) Subjective Feels better still with abd pain, but improved advised to see a surgeon as outpatient to discuss possible lap chlole Alternatively, she was also given option of getting outpatient ERCP or EUS to better investigate possible gallstones Objective Last 24 Hour Vital Signs Date Time Temp Pulse Resp B/P (MAP) Pulse Ox O2 Delivery O2 Flow Rate FiO2 06/20/18 08:00 98.2 86 19 113/71 (85) 97 06/20/18 04:00 98.3 87 18 108/76 (87) 98 06/20/18 00:00 97.9 74 17 136/79 (98) 99 06/19/18 21:00 Room Air 06/19/18 20:00 97.7 79 18 133/84 (100) 100 06/19/18 19:29 98.9 06/19/18 16:00 98.9 84 16 129/85 (100) 99 06/19/18 12:00 98.2 77 16 122/72 (89) 99 Intake and Output 06/19/18 06/20/18 19:00 07:00 Intake Total 1150 ml 2460 ml Balance 1150 ml 2460 ml Intake Oral 1360 ml IV Total 1150 ml 1100 ml # Voids 5 Height (Feet): 5 Height (Inches): 6.00 Weight (Pounds): 200 Objective Obese AA woman NCAT supple CTA RRR abd soft ND, (+) epigastric TTP but improved no edema non focal Riley Bolton MD June 20, 2018 09:41
[2018-06-20] MEDS: Milk of Magnesia 30ml Ud ORAL PRN (10:39)
--- NOTE | 2018-06-20 10:43 | General Progress Note ---
Assessment/Plan Assessment/Plan: IMPRESSION: Acute pancreatitis. PLAN tolerating diet no fat hydration pain management- dc MRI noted dc pending lipase impression, plan, and exam edited and reviewed in detail care discussed with RN Subjective Allergies: Coded Allergies: No Known Allergies (Unverified , 06/16/18) Subjective improved some constipation cleared by gi Objective Last 24 Hour Vital Signs Date Time Temp Pulse Resp B/P (MAP) Pulse Ox O2 Delivery O2 Flow Rate FiO2 06/20/18 08:00 98.2 86 19 113/71 (85) 97 06/20/18 04:00 98.3 87 18 108/76 (87) 98 06/20/18 00:00 97.9 74 17 136/79 (98) 99 06/19/18 21:00 Room Air 06/19/18 20:00 97.7 79 18 133/84 (100) 100 06/19/18 19:29 98.9 06/19/18 16:00 98.9 84 16 129/85 (100) 99 06/19/18 12:00 98.2 77 16 122/72 (89) 99 Intake and Output 06/19/18 06/20/18 18:59 06:59 Intake Total 1150 ml 2560 ml Balance 1150 ml 2560 ml Intake Oral 1360 ml IV Total 1150 ml 1200 ml # Voids 5 Laboratory Tests 06/20/18 10:00: Lipase [Pending] Height (Feet): 5 Height (Inches): 6.00 Weight (Pounds): 200 Objective GENERAL: A well-developed female, comfortable. HEENT: Negative. NECK: Supple. LUNGS: Clear. CARDIAC: S1, S2. Regular rate and rhythm. ABDOMEN: Some epigastric tenderness. EXTREMITIES: No edema. Billy Esquivel MD June 20, 2018 10:43
[2018-06-20 12:00] VITALS: BP 115/84
[2018-06-20] MEDS: HYDROcodone/Acetamin 5/325 tab ORAL PRN ×2 (12:25→21:09)
--- NOTE | 2018-06-20 14:03 | NUR ---
*-* INSURANCE *-* UPDATED CLINICALS AND REVIEWS HAVE BEEN FAXED TO: [facility] P:[phone] F:[phone] F:[phone]
[2018-06-20 16:00] VITALS: BP 132/92
--- NOTE | 2018-06-20 19:30 | NUR ---
NURSE NOTES: Received report from ANGELA Mcintosh and rounds done. Received pt in bed, AOX4, pain level 4/10, no distress noted.. IV L hand patent and intact. IV fluid infusing as ordered. Safety measures maintained. Bed in lowest position and locked, side rails up x 2, call light within reach. Will continue to monitor.
--- NOTE | 2018-06-20 19:35 | NUR ---
HAND-OFF: Report given to Wil Villalba pt in stable condition.
[2018-06-20 20:00] VITALS: BP 130/92
[2018-06-21] VITALS: BP 145/100
[2018-06-21] MEDS: LORazepam Inj 2mg/ml 1ml IV PRN ×3 (01:31→13:16)
[2018-06-21] MEDS: HYDROcodone/Acetamin 5/325 tab ORAL PRN ×3 (02:45→14:23)
[2018-06-21 04:00] VITALS: BP 141/93
--- NOTE | 2018-06-21 07:17 | NUR ---
HAND-OFF: Report given to ANGELA Barakat. Pt iin stable condition.
--- NOTE | 2018-06-21 07:28 | NUR ---
NURSE NOTES: Received report from Wil Peraza RN. Rounding done with outgoing nurse. Patient asleep. Bed in lowest position, call light within reach. Will continue to monitor.
[2018-06-21 08:00] VITALS: BP 138/95
--- NOTE | 2018-06-21 08:53 | General Progress Note ---
Assessment/Plan Assessment/Plan: IMPRESSION: Acute pancreatitis. constipation PLAN bland diet no fat hydration pain management- dc MRI noted dc pending gi clearance impression, plan, and exam edited and reviewed in detail care discussed with RN Subjective Allergies: Coded Allergies: No Known Allergies (Unverified , 06/16/18) Subjective lipase rising dc hled Objective Last 24 Hour Vital Signs Date Time Temp Pulse Resp B/P (MAP) Pulse Ox O2 Delivery O2 Flow Rate FiO2 06/21/18 04:00 98.2 79 17 141/93 (109) 100 06/21/18 00:00 98.4 74 17 145/100 (115) 100 06/20/18 21:00 Room Air 06/20/18 20:00 98.3 83 18 130/92 (105) 97 06/20/18 16:00 97.8 82 20 132/92 (105) 100 06/20/18 12:00 98.1 100 20 115/84 (94) 97 06/20/18 10:49 98.2 06/20/18 10:49 98.2 06/20/18 09:00 Room Air Intake and Output 06/20/18 06/21/18 19:00 07:00 Intake Total 600 ml 1340 ml Balance 600 ml 1340 ml Intake Oral 500 ml 240 ml IV Total 100 ml 1100 ml # Voids 3 Laboratory Tests 06/20/18 10:00: Lipase 760H 06/21/18 05:34: Lipase 782H Height (Feet): 5 Height (Inches): 6.00 Weight (Pounds): 200 Objective GENERAL: A well-developed female, comfortable. HEENT: Negative. NECK: Supple. LUNGS: Clear. CARDIAC: S1, S2. Regular rate and rhythm. ABDOMEN: NABS and minimal tenderness. EXTREMITIES: No edema. Billy Esquivel MD June 21, 2018 08:53
--- NOTE | 2018-06-21 09:25 | NUR ---
CASE MANAGEMENT:REVIEW 06/21/18 SI: PANCREATITIS 98.2 84 16 138/95 99% ON RA LIPASE+782 IS: IVF@100/HR IV ATIVAN Q3HRS PRN IV ZOFRAN Q6HRS PRN : MED/SURG STATUS 3 EAST DCP: FROM HOME PLAN: DISCHARGE WAS HELD YESTERDAY BECAUSE LIPASE INCREASED FROM 510 TO 760 AND TODAY IT IS 782 NOT SURE WHAT DISCHARGE PLAN IS AT THIS TIME
--- NOTE | 2018-06-21 11:19 | NUR ---
*-* INSURANCE *-* UPDATED CLINICALS AND REVIEWS HAVE BEEN FAXED TO: [facility] P:[phone] F:[phone] F:[phone]
[2018-06-21 12:00] VITALS: BP 127/85
--- NOTE | 2018-06-21 12:12 | NUR ---
RD ASSESSMENT & RECOMMENDATIONS SEE CARE ACTIVITY FOR COMPLETE ASSESSMENT DAILY ESTIMATED NEEDS: Needs based on Pancreatitis, obese 58.5kg adj 25-30 kcals/kg 4605-7313 total kcals 1-1.5 g protein/kg 59-88 g total protein 25-30 mL/kg 7775-5216 total fluid mLs NUTRITION DIAGNOSIS: Decrease fat needs r/t BMI and pancreatitis as evidenced by pt adm w/ lipase >2000, BMI obese per guidelines, possibly 190% of [place] Body Weight. CURRENT DIET: Now Low Fat PO DIET RECOMMENDATIONS: LOW FAT DIET ADDITIONAL RECOMMENDATIONS: 1) Obtain a standing scale wt as able 2) Pt w/ hypoglycemia, monitor BG 3) Re-attempt diet edu as able
--- NOTE | 2018-06-21 15:10 | NUR ---
NURSE NOTES: Patient stat [place] is not working. Dr. Esquivel was notified and ordered dilaudid 1mg IVP Q3 prn. Noted and carried out.
[2018-06-21 16:00] VITALS: BP 132/91
--- NOTE | 2018-06-21 16:17 | General Progress Note ---
Assessment/Plan Assessment/Plan: Assessment - Acute recurrent pancreatitis - suspected gallbladder sludge, based on MRI report Recommendations - low fat diet - monitor labs - pain control - surgical opinion re eventual cholecystectomy - d/c planning Subjective Allergies: Coded Allergies: No Known Allergies (Unverified , 06/16/18) Subjective Feels better still with abd pain, but improved advised to see a surgeon as outpatient to discuss possible lap chlole Alternatively, she was also given option of getting outpatient ERCP or EUS to better investigate possible gallstones Objective Last 24 Hour Vital Signs Date Time Temp Pulse Resp B/P (MAP) Pulse Ox O2 Delivery O2 Flow Rate FiO2 06/21/18 16:00 98.8 101 16 132/91 (105) 99 06/21/18 12:00 98.1 80 16 127/85 (99) 99 06/21/18 09:00 Room Air 06/21/18 08:00 98.2 84 16 138/95 (109) 99 06/21/18 04:00 98.2 79 17 141/93 (109) 100 06/21/18 00:00 98.4 74 17 145/100 (115) 100 06/20/18 21:00 Room Air 06/20/18 20:00 98.3 83 18 130/92 (105) 97 Intake and Output 06/20/18 06/21/18 18:59 06:59 Intake Total 500 ml 1440 ml Balance 500 ml 1440 ml Intake Oral 500 ml 240 ml IV Total 1200 ml # Voids 3 Laboratory Tests 06/21/18 05:34: Lipase 782H Height (Feet): 5 Height (Inches): 6.00 Weight (Pounds): 200 Objective Obese AA woman NCAT supple CTA RRR abd soft ND, (+) epigastric TTP but improved no edema non focal Riley Bolton MD June 21, 2018 16:17
[2018-06-21] MEDS: HYDROmorphone 1mg/ml Carpuject IVP PRN ×2 (18:01→21:09)
--- NOTE | 2018-06-21 19:15 | NUR ---
HAND-OFF: Report given to ANGELA Malloy.
--- NOTE | 2018-06-21 19:30 | NUR ---
NURSE NOTES: Report received from ANGELA aBrakat. Patient in bed, no distress noted. Bed in low position, locked, side rails up x2, call light within reach. IV in RFA, intact and patent. will continue to monitor
[2018-06-21 20:00] VITALS: BP 131/95
--- NOTE | 2018-06-21 22:54 | NUR ---
HAND-OFF: Report given to ANGELA Villalpando. Patient in stable condition.
--- NOTE | 2018-06-21 23:00 | NUR ---
NURSE NOTES: Received report & pt from ANGELA Malloy. Pt lying in bed, a&ox4, in room air. No s/s of acute distress & no c/o pain at this time. Skin intact. IV site intact with IVF running as ordered. Bed in lowest position, call light within reach. Will continue to monitor.
[2018-06-22] VITALS: BP 137/99
[2018-06-22] MEDS: HYDROmorphone 1mg/ml Carpuject IVP PRN ×8 (00:09→23:39)
[2018-06-22 04:00] VITALS: BP 136/97
--- NOTE | 2018-06-22 07:00 | NUR ---
NURSE NOTES:BEDSIDE ROUNDS DONE WITH KOLBY MILLER.PATIENT HAVING BREAKFAST,A/OX4,ROOM AIR,IV SITE LFA PATENT.REQUESTING FOR ANTIANXIETY MED.PLAN OF CARE FOR THE DAY DISCUSSED.WILL CONT. TO MONITOR
--- NOTE | 2018-06-22 07:30 | NUR ---
HAND-OFF: Report given to ANGELA Reed. Rounds done. Pt in stable condition.
[2018-06-22] MEDS: LORazepam Inj 2mg/ml 1ml IV PRN ×3 (07:33→15:59)
[2018-06-22 08:00] VITALS: BP 143/94
[2018-06-22] MEDS ORDERED: Tubing IV Secondary IV ONE (08:55)
[2018-06-22] MEDS: Milk of Magnesia 30ml Ud ORAL PRN (09:23)
--- NOTE | 2018-06-22 09:47 | Pulmonology Progress Note ---
Assessment/Plan Assessment/Plan Pulmonary Progress Note Assessment/Plan: IMPRESSION: Acute pancreatitis. constipation PLAN bland diet no fat hydration pain management- dc MRI noted dc planning impression, plan, and exam edited and reviewed in detail care discussed with RN Subjective Allergies: Coded Allergies: No Known Allergies (Unverified , 06/16/18) Subjective lipase rising dc hled Objective Vital Signs Noted Laboratory Tests Noted 06/20/18 10:00: Lipase 760H 06/21/18 05:34: Lipase 782H Height (Feet): 5 Height (Inches): 6.00 Weight (Pounds): 200 Objective GENERAL: A well-developed female, comfortable. HEENT: Negative. NECK: Supple. LUNGS: Clear. CARDIAC: S1, S2. Regular rate and rhythm. ABDOMEN: NABS and minimal tenderness. EXTREMITIES: No edema. Subjective ROS Limited/Unobtainable: No Allergies: Coded Allergies: No Known Allergies (Unverified , 06/16/18) Objective Last 24 Hour Vital Signs Date Time Temp Pulse Resp B/P (MAP) Pulse Ox O2 Delivery O2 Flow Rate FiO2 06/22/18 08:00 97.9 77 20 143/94 (110) 96 06/22/18 07:00 Room Air 06/22/18 04:00 97.2 87 17 136/97 (110) 100 06/22/18 00:00 98.6 80 16 137/99 (112) 100 06/21/18 21:00 Room Air 06/21/18 20:00 97.8 90 18 131/95 (107) 100 06/21/18 16:00 98.8 101 16 132/91 (105) 99 06/21/18 12:00 98.1 80 16 127/85 (99) 99 Intake and Output 06/21/18 06/22/18 19:00 07:00 Intake Total 1800 ml 2100 ml Balance 1800 ml 2100 ml Intake Oral 800 ml 900 ml IV Total 1000 ml 1200 ml # Voids 2 2 Laboratory Tests 06/22/18 05:34: Lipase 558H Current Medications Medications (Trade) Dose Ordered Sig/Wendie Route PRN Reason Start Time Stop Time Status Last Admin Dose Admin Acetaminophen/ Hydrocodone Bitart ([place] 5/325) 1 tab Q4H PRN ORAL Moderate Pain (Pain Scale 4-6) 06/20/18 09:30 5/16/19 09:29 06/21/18 14:23 Hydromorphone HCl (Dilaudid) 1 mg Q3H PRN IVP Severe Pain (Pain Scale 7-10) 06/21/18 15:15 06/28/18 15:14 06/22/18 09:24 Lorazepam (Ativan 2mg/ml 1ml) 1 mg Q3H PRN IV For Anxiety 06/16/18 17:15 06/23/18 17:14 06/22/18 07:33 Magnesium Hydroxide (Mom) 30 ml DAILYPRN PRN ORAL Constipation 06/20/18 10:30 07/20/18 10:29 06/22/18 09:23 Ondansetron HCl (Zofran) 4 mg Q6H PRN IVP Nausea & Vomiting 06/16/18 17:15 07/16/18 17:14 Sodium Chloride 1,000 ml @ 100 mls/hr Q10H IV 06/16/18 17:15 07/16/18 17:14 06/22/18 03:09 Perry Anne MD June 22, 2018 09:47
[2018-06-22 12:00] VITALS: BP 128/95
--- NOTE | 2018-06-22 14:26 | NUR ---
CASE MANAGEMENT: REVIEW SI: PANCREATITIS T 97.2 HR 87 RR 17 BP 143/94 SAT 96% ROOM AIR LIPASE 558 IS: DILAUDID IV Q3HR PRN NS IVF @100ML/HR ATIVAN IV Q3HR PRN MED/SURG STATUS DCP: PATIENT IS FROM HOME
[2018-06-22 16:02] VITALS: BP 129/76
--- NOTE | 2018-06-22 17:27 | General Progress Note ---
Assessment/Plan Assessment/Plan: Assessment - Acute recurrent pancreatitis - suspected gallbladder sludge, based on MRI report Recommendations - low fat diet - monitor labs - pain control - surgical opinion re eventual cholecystectomy - d/c planning Subjective Allergies: Coded Allergies: No Known Allergies (Unverified , 06/16/18) Subjective Feels better still with abd pain, but improved advised to see a surgeon as outpatient to discuss possible lap chlole Alternatively, she was also given option of getting outpatient ERCP or EUS to better investigate possible gallstones Objective Last 24 Hour Vital Signs Date Time Temp Pulse Resp B/P (MAP) Pulse Ox O2 Delivery O2 Flow Rate FiO2 06/22/18 16:02 98.3 67 19 129/76 (93) 99 06/22/18 12:00 98.8 88 20 128/95 (106) 99 06/22/18 08:00 97.9 77 20 143/94 (110) 96 06/22/18 07:00 Room Air 06/22/18 04:00 97.2 87 17 136/97 (110) 100 06/22/18 00:00 98.6 80 16 137/99 (112) 100 06/21/18 21:00 Room Air 06/21/18 20:00 97.8 90 18 131/95 (107) 100 Intake and Output 06/21/18 06/22/18 18:59 06:59 Intake Total 1800 ml 2000 ml Balance 1800 ml 2000 ml Intake Oral 800 ml 900 ml IV Total 1000 ml 1100 ml # Voids 2 2 Laboratory Tests 06/22/18 05:34: Lipase 558H Height (Feet): 5 Height (Inches): 6.00 Weight (Pounds): 200 Objective Obese AA woman NCAT supple CTA RRR abd soft ND, (+) epigastric TTP but improved no edema non focal Riley Bolton MD June 22, 2018 17:26
--- NOTE | 2018-06-22 18:31 | NUR ---
HAND-OFF: Report given to JEFFREY MILLER RE:CONTINUITY OF CARE.
--- NOTE | 2018-06-22 18:57 | NUR ---
NURSE NOTES: Report received from Brianna MILLER. Attempted to insert IV on patient, patient is refusing IV insertion at this time. Will continue to monitor.
--- NOTE | 2018-06-22 19:30 | NUR ---
NURSE NOTES: Patient requested to go down to make a phone call, states doesn't have good medical records receptionist in her room. PEGGY Bain accompanied patient downstairs.
--- NOTE | 2018-06-22 19:30 | NUR ---
NURSE NOTES: Received report from ANGELA Crews. Patient is back in room. No distress noted. Bed in low position, locked, side rails up x2, call light within reach.
--- NOTE | 2018-06-22 19:45 | NUR ---
HAND-OFF: Report given to Mellissa MILLER. Patient is in stable condition.
[2018-06-22 20:00] VITALS: BP 106/83
--- NOTE | 2018-06-22 20:00 | NUR ---
NURSE NOTES: IV restarted in right hand, gauge #24, IVF NS at 10 Addendum: 06/22/18 at 2010 by Mellissa Carroll RN IVF NS at 100 cc/hr
[2018-06-22] MEDS: HYDROcodone/Acetamin 5/325 tab ORAL PRN (22:57)
[2018-06-23] VITALS: BP 131/98
--- NOTE | 2018-06-23 01:45 | NUR ---
NURSE NOTES: IV restarted on R hand, gauge #22. Previous IV came off.
[2018-06-23] MEDS: LORazepam Inj 2mg/ml 1ml IV PRN ×3 (01:52→09:09)
--- NOTE | 2018-06-23 02:00 | NUR ---
NURSE NOTES: Noted patient is relaxed, drifts off to sleep while talking to nurse but is easily awakened. Will continue to monitor.
[2018-06-23] MEDS: HYDROmorphone 1mg/ml Carpuject IVP PRN ×2 (02:56→07:00)
[2018-06-23] MEDS: HYDROcodone/Acetamin 5/325 tab ORAL PRN (03:56)
[2018-06-23 04:00] VITALS: BP 128/90
--- NOTE | 2018-06-23 07:25 | NUR ---
NURSE NOTES: Report received from Mellissa MILLER, rounds made. Patient sitting in high fowlers position in bed. No SOB on RA, No NV. Abdominal pain 2/10 at this time. IVF infusing to LH as ordered, site asymptomatic. Appetite good. Call light in reach, bed in lowest position, will continue to monitor.
--- NOTE | 2018-06-23 07:30 | NUR ---
HAND-OFF: Report given to ANGELA Gonzalez. Patient in stable condition.
[2018-06-23 08:00] VITALS: BP 131/85
--- NOTE | 2018-06-23 08:30 | NUR ---
NURSE NOTES: Patient inquired if she can go downstairs to smoke. Instructed patient that [facility] is a smoke free facility, patient verbalized understanding.
--- NOTE | 2018-06-23 09:46 | General Progress Note ---
Assessment/Plan Assessment/Plan: Assessment - Acute recurrent pancreatitis - suspected gallbladder sludge, based on MRI report Recommendations - low fat diet - monitor labs - pain control - surgical opinion re eventual cholecystectomy - OK for d/c from GI standpoint Subjective Allergies: Coded Allergies: No Known Allergies (Unverified , 06/16/18) Subjective Feels better abd pain improved wants to go home advised to see a surgeon as outpatient to discuss possible lap chlole Alternatively, she was also given option of getting outpatient ERCP or EUS to better investigate possible gallstones Objective Last 24 Hour Vital Signs Date Time Temp Pulse Resp B/P (MAP) Pulse Ox O2 Delivery O2 Flow Rate FiO2 06/23/18 08:00 97.5 88 20 131/85 (100) 100 06/23/18 04:00 97.6 82 18 128/90 (103) 100 06/23/18 00:00 98.3 85 20 131/98 (109) 98 06/22/18 21:00 Room Air 06/22/18 20:00 97.7 89 18 106/83 (91) 100 06/22/18 16:02 98.3 67 19 129/76 (93) 99 06/22/18 12:00 98.8 88 20 128/95 (106) 99 Intake and Output 06/22/18 06/23/18 19:00 07:00 Intake Total 1660 ml 1500 ml Balance 1660 ml 1500 ml Intake Oral 960 ml 600 ml IV Total 700 ml 900 ml # Voids 3 Height (Feet): 5 Height (Inches): 6.00 Weight (Pounds): 200 Objective Obese AA woman NCAT supple CTA RRR abd soft ND, (+) epigastric TTP but improved no edema non focal Riley Bolton MD June 23, 2018 09:46
--- NOTE | 2018-06-23 10:10 | Pulmonology Progress Note ---
Assessment/Plan Assessment/Plan Pulmonary Progress Note Assessment/Plan: IMPRESSION: Acute pancreatitis. constipation N V resolved PLAN bland diet no fat hydration pain management- dc MRI noted dc planning - OK per GI impression, plan, and exam edited and reviewed in detail care discussed with RN Subjective Allergies: Coded Allergies: No Known Allergies (Unverified , 06/16/18) Subjective lipase rising dc hled Objective Vital Signs Noted Laboratory Tests Noted 06/20/18 10:00: Lipase 760H 06/21/18 05:34: Lipase 782H Height (Feet): 5 Height (Inches): 6.00 Weight (Pounds): 200 Objective GENERAL: A well-developed female, comfortable. HEENT: Negative. NECK: Supple. LUNGS: Clear. CARDIAC: S1, S2. Regular rate and rhythm. ABDOMEN: NABS and minimal tenderness. EXTREMITIES: No edema. Subjective ROS Limited/Unobtainable: No Allergies: Coded Allergies: No Known Allergies (Unverified , 06/16/18) Objective Last 24 Hour Vital Signs Date Time Temp Pulse Resp B/P (MAP) Pulse Ox O2 Delivery O2 Flow Rate FiO2 06/23/18 08:00 97.5 88 20 131/85 (100) 100 06/23/18 04:00 97.6 82 18 128/90 (103) 100 06/23/18 00:00 98.3 85 20 131/98 (109) 98 06/22/18 21:00 Room Air 06/22/18 20:00 97.7 89 18 106/83 (91) 100 06/22/18 16:02 98.3 67 19 129/76 (93) 99 06/22/18 12:00 98.8 88 20 128/95 (106) 99 Intake and Output 06/22/18 06/23/18 19:00 07:00 Intake Total 1660 ml 1500 ml Balance 1660 ml 1500 ml Intake Oral 960 ml 600 ml IV Total 700 ml 900 ml # Voids 3 Current Medications Medications (Trade) Dose Ordered Sig/Wendie Route PRN Reason Start Time Stop Time Status Last Admin Dose Admin Acetaminophen/ Hydrocodone Bitart ([place] 5/325) 1 tab Q4H PRN ORAL Moderate Pain (Pain Scale 4-6) 06/20/18 09:30 06/27/18 09:29 06/23/18 03:56 Hydromorphone HCl (Dilaudid) 1 mg Q3H PRN IVP Severe Pain (Pain Scale 7-10) 06/21/18 15:15 06/28/18 15:14 06/23/18 07:00 Lorazepam (Ativan 2mg/ml 1ml) 1 mg Q3H PRN IV For Anxiety 06/16/18 17:15 06/23/18 17:14 06/23/18 09:09 Magnesium Hydroxide (Mom) 30 ml DAILYPRN PRN ORAL Constipation 06/20/18 10:30 07/20/18 10:29 06/22/18 09:23 Ondansetron HCl (Zofran) 4 mg Q6H PRN IVP Nausea & Vomiting 06/16/18 17:15 07/16/18 17:14 Sodium Chloride 1,000 ml @ 100 mls/hr Q10H IV 06/16/18 17:15 07/16/18 17:14 06/23/18 09:09 Perry Anne MD June 23, 2018 10:10
--- NOTE | 2018-06-23 11:45 | NUR ---
NURSE NOTES: Discharge instructions reviewed with patient, verbalized understanding. IV heplock discontinued, applied pressure to dressing due to active bleeding, subsided. All belongings, discharge instructions and taxi voucher given to patient. Patient sent down to lobby via with RN. Discharged home via taxi at 1145 in stable condition.
--- NOTE | 2018-06-25 10:34 | Discharge Summary ---
Discharge Summary Discharge Summary _ DATE OF ADMISSION: 06/16/2018 DATE OF DISCHARGE: 06/23/2018 DISCHARGED BY: Dr. Esquivel REASON FOR ADMISSION: 33 years old female with history of pancreatitis , presented to emergency room complaining of two days of severe abdominal pain, nausea and vomiting. Pain described as epigastric, radiating to back, diffuse, and severe. Patient reported multiple bouts of nonbloody emesis. Patient was diagnosed with pancreatitis 6 years ago due to alcohol ingestion. Patient denied fever and chills. Patient denied chest pain ,shortness of breath, palpitations, dizziness. Patient denied use of alcohol or illicit street drugs. Patient denied recent traveling or new medication use. Upon evaluation vital signs were stable. Laboratory work-up revealed no leukocytosis, stable hemoglobin and hematocrit. Stable electrolytes and renal parameters. Stable LFT. Troponin negative. Lipase over 1999. Urinalysis revealed +2 protein , +4 ketones, +1 leukocyte esterase ,no pyuria , occasional bacteria. Urine test was negative. Urine toxicology screen was positive for marijuana. EKG revealed sinus rhythm , no acute ischemic changes. Chest x-ray revealed no acute cardiopulmonary pathology. CT of the abdomen and pelvis demonstrated evidence of acute pancreatitis. Evidence of midgut malrotation , no evidence of bowel obstruction. The liver was diffusely hypodense , consistent with fatty infiltration. Patient subsequently was admitted for management of acute pancreatitis . CONSULTANTS: GI specialist Dr. Bolton surgery [facility] COURSE: Patient admitted to medical surgical floor . Patient was kept n.p.o. and started on the IV hydration. Pain management was addressed . Symptomatic care provided. GI seen and evaluated patient. Patient subsequently undergone abdominal ultrasound , which revealed fatty liver , no hydronephrosis, no ascites, common bile duct 2.5 mm. MRCP demonstrated acute pancreatitis. Gallbladder sludge. Midgut malrotation. No evidence of biliary ductal dilatation or choledocholithiasis. Lipid panel revealed minimally elevated LDL of 105 , stable cholesterol and triglycerides. Surgeon seen and evaluated patient . Per surgeon there , no surgical intervention at this time was planned, since there was no bowel obstruction . GI specialist closely followed. Patient slowly started on clear liquid diet. Pain management was addressed. GI recommended surgical opinion regarding eventual cholecystectomy. Lipase was trending down, prior to discharge lipase 558. Diet was advanced to low-fat diet. Patient was able to tolerate diet. Bowel regimen instituted. Renal parameters and electrolytes were closely monitored. Electrolytes corrected as needed. Nephrotoxins were avoided. Patient will need eventual cholecystectomy due to suspected gallbladder sludge. Follow-up as outpatient with surgeon Patient clinically stabilized and was ready for discharge home . Patient was counseled to continue abstinence from alcohol . FINAL DIAGNOSES: Acute recurrent pancreatitis Suspected gallbladder sludge Constipation DISCHARGE MEDICATIONS: List of medication was sent with patient DISCHARGE INSTRUCTIONS: Patient was discharged home . Follow up with primary care provider in one week. I have been assigned to dictate discharge summary for this account. I was not involved in the patient's management. Barbara Boland NP June 25, 2018 10:34
== END 2018-06-23 11:45 | disposition home or self-care (01) | DRG 282 ==
LOC: EDBD 11:53 → EMR 12:29 → 3E 14:25 → EDBEDREQ 15:26 → 3E 06-17 20:32
DX: K85.90 Acute pancreatitis without necrosis or infection, unspecified (principal); E11.9 Type 2 diabetes mellitus without complications; K59.00 Constipation, unspecified; K86.1 Other chronic pancreatitis; K82.8 Other specified diseases of gallbladder; J45.909 Unspecified asthma, uncomplicated; I10 Essential (primary) hypertension; F17.200 Nicotine dependence, unspecified, uncomplicated
CPT/HCPCS: 36415; 71045; 71250; 74176; 74181; 76700; 80048; 80053; 80061; 80307; 80329; 81003; 81025; 82150; 82553; 83690; 84484; 85025; 93005; 96374; 96375; 96376; 99285; J2405; J2765; J8499

== ENCOUNTER 2019-01-02 23:42 | Emergency (ER) | payer MEDICAID ==
[~2019-01-02] VITALS: Ht 154.9 cm; Wt 68.0 kg
--- NOTE | 2019-01-02 23:50 | NUR ---
ED Nurse Note: [facility] FOR LOWER ABDOMINAL PAIN RADIATING TO LOWER BACK AND FLANKS X2 DAYS. PATIENT REPORTS 9/10 SHARP ACHING CONSTANT PAIN. PATIENT AO4 VSS. GRASPING SITE BUT NO ACUTE DISTRESS. PROVIDED PATIENT WITH WARM BLANKET AND REPOSITIONED FOR COMFORT.
--- NOTE | 2019-01-03 | NUR ---
ED Nurse Note: IV ACCESS ESTABLISHED. BLOOD COLLECTED; SENT DOWN TO LAB. PT UNABLE TO PROVIDE URINE AT THE MOMENT. STATES SHE WILL PROVIDE WHEN ABLE.
[2019-01-03 00:03] VITALS: BP 123/93
[2019-01-03 00:27] LABS: HEMATOCRIT 34.9 % (37.0-47.0); HEMOGLOBIN 11.5 G/DL (12.0-16.0); MEAN CORPUSCULAR VOLUME 85 FL (80-99); PLATELET COUNT 250 K/UL (150-450); RED CELL DISTRIBUTION WIDTH 18.4 % (11.6-14.8); WHITE BLOOD COUNT 8.1 K/UL (4.8-10.8)
[2019-01-03 00:30] LABS: ANION GAP 10 mmol/L (5-15); BLOOD UREA NITROGEN 3 mg/dL (7-18); CALCIUM 8.8 MG/DL (8.5-10.1); CARBON DIOXIDE 24 MMOL/L (21-32); CHLORIDE 100 MMOL/L (98-107); CREATININE 0.9 MG/DL (0.55-1.30); POTASSIUM 3.4 MMOL/L (3.5-5.1); SODIUM 134 MMOL/L (136-145)
[2019-01-03] MEDS ORDERED: Acetaminophen 500mg (ES) tab ORAL ONE (00:30)
[2019-01-03 00:41] LABS: ALANINE AMINOTRANSFERASE 29 U/L (12-78); ALBUMIN 3.8 G/DL (3.4-5.0); ALBUMIN/GLOBULIN RATIO 0.8 (1.0-2.7); ALKALINE PHOSPHATASE 132 U/L (46-116); ASPARTATE AMINO TRANSFERASE 42 U/L (15-37); BILIRUBIN,TOTAL 1.3 MG/DL (0.2-1.0)
--- NOTE | 2019-01-03 00:45 | Emergency Room Report ---
History of Present Illness General Chief Complaint: Abdominal Pain Source: Patient Present Illness HPI 33-year-old female presents with vague abdominal cramps x2 days, patient states she is on her menstrual cycle. She has had similar pain in the past. She states tylenol helps, no f/c, dysuria, or vaginal discharge. Patient denies any aggravating factors. Severity is moderate, intermittent. Patient presents for eval. She reports + nausea Allergies: Coded Allergies: No Known Allergies (Unverified , 06/16/18) Patient History Past Medical History: see triage record Last Menstrual Period: 12/31/18 Now: No : 3 Para: 2 Reviewed Nursing Documentation: PMH: Agreed; PSxH: Agreed Nursing Documentation-PMH Hx Cardiac Problems: No Hx Cancer: No Hx Gastrointestinal Problems: Yes - PANCREATITIS Hx Neurological Problems: No Review of Systems All Other Systems: negative except mentioned in HPI Physical Exam Vital Signs Date Time Temp Pulse Resp B/P (MAP) Pulse Ox O2 Delivery O2 Flow Rate FiO2 01/02/19 23:42 98.1 88 16 123/93 (103) 99 Room Air Sp02 EP Interpretation: reviewed, normal General Appearance: well appearing, no apparent distress, alert Head: normocephalic, atraumatic Eyes: bilateral eye PERRL, bilateral eye EOMI ENT: uvula midline, moist mucus membranes Neck: supple, thyroid normal, supple/symm/no masses Respiratory: lungs clear, no respiratory distress, no retraction, no accessory muscle use Cardiovascular #1: normal peripheral pulses, regular rate, rhythm, no edema, no gallop, no murmur Gastrointestinal: non tender, soft, no guarding, no rebound Musculoskeletal: normal inspection Neurologic: alert, oriented x3 Psychiatric: mood/affect normal Skin: no rash, warm/dry Medical Decision Making Diagnostic Impression: Primary Impression: UTI (urinary tract infection) Qualified Codes: N30.01 - Acute cystitis with hematuria ER Course 33-year-old female presents with vague abdominal pain, cramps after having it., Differential diagnosis includes UTI diverticulitis, appendicitis Patient's abdomen is soft nontender, patient found to have a UTI on lab work Patient rehydrated, counseled patient to follow-up with PCP Outpatient antibiotics disposition home with return precautions Laboratory Tests Test 01/03/19 00:00 01/03/19 03:00 White Blood Count 8.1 K/UL (4.8-10.8) Red Blood Count 4.10 M/UL (4.20-5.40) L Hemoglobin 11.5 G/DL (12.0-16.0) L Hematocrit 34.9 % (37.0-47.0) L Mean Corpuscular Volume 85 FL (80-99) Mean Corpuscular Hemoglobin 28.0 PG (27.0-31.0) Mean Corpuscular Hemoglobin Concent 32.9 G/DL (32.0-36.0) Red Cell Distribution Width 18.4 % (11.6-14.8) H Platelet Count 250 K/UL (150-450) Mean Platelet Volume 5.8 FL (6.5-10.1) L Neutrophils (%) (Auto) % (45.0-75.0) Lymphocytes (%) (Auto) % (20.0-45.0) Monocytes (%) (Auto) % (1.0-10.0) Eosinophils (%) (Auto) % (0.0-3.0) Basophils (%) (Auto) % (0.0-2.0) Prothrombin Time 11.0 SEC (9.30-11.50) Prothrombin Time INR 1.0 (0.9-1.1) PTT 28 SEC (23-33) Sodium Level 134 MMOL/L (136-145) L Potassium Level 3.4 MMOL/L (3.5-5.1) L Chloride Level 100 MMOL/L (98-107) Carbon Dioxide Level 24 MMOL/L (21-32) Anion Gap 10 mmol/L (5-15) Blood Urea Nitrogen 3 mg/dL (7-18) L Creatinine 0.9 MG/DL (0.55-1.30) Estimate Glomerular Filtration Rate > 60 mL/min (>60) Glucose Level 92 MG/DL (74-106) Calcium Level 8.8 MG/DL (8.5-10.1) Total Bilirubin 1.3 MG/DL (0.2-1.0) H Direct Bilirubin 0.4 MG/DL (0.0-0.3) H Aspartate Amino Transferase (AST) 42 U/L (15-37) H Alanine Aminotransferase (ALT) 29 U/L (12-78) Alkaline Phosphatase 132 U/L (46-116) H Total Protein 8.5 G/DL (6.4-8.2) H Albumin 3.8 G/DL (3.4-5.0) Globulin 4.7 g/dL Albumin/Globulin Ratio 0.8 (1.0-2.7) L Lipase 49 U/L (73-393) L Human Chorionic Gonadotropin, Quant < 1 mIU/mL (1-6) L Urine Color Pale yellow Urine Appearance Clear Urine pH 6 (4.5-8.0) Urine Specific [place] 1.015 (1.005-1.035) Urine Protein Negative (NEGATIVE) Urine Glucose (UA) Negative (NEGATIVE) Urine Ketones Negative (NEGATIVE) Urine Blood 1+ (NEGATIVE) H Urine Nitrite Positive (NEGATIVE) H Urine Bilirubin Negative (NEGATIVE) Urine Urobilinogen 1 MG/DL (0.0-1.0) H Urine Leukocyte Esterase 1+ (NEGATIVE) H Urine RBC 0-2 /HPF (0 - 2) Urine WBC 2-4 /HPF (0 - 2) Urine Squamous Epithelial Cells Few /LPF (NONE/OCC) Urine Bacteria Few /HPF (NONE) Urine HCG, Qualitative Negative (NEGATIVE) Last Vital Signs Date Time Temp Pulse Resp B/P (MAP) Pulse Ox O2 Delivery O2 Flow Rate FiO2 01/03/19 00:03 98.1 88 16 123/93 99 Room Air Disposition: HOME, SELF-CARE Condition: Stable Scripts Cephalexin* (KEFLEX*) 500 Mg Tablet 500 MG ORAL EVERY 6 HOURS, #20 CAP Prov: Pradip Simons MD 01/03/19 [facility] Patient Instructions: Abdominal Pain, Adult, Urinary Tract Infection, Easy-to- Read Additional Instructions: The patient was provided with discharge instructions, notified to follow-up with a primary care doctor and or specialist in the next 24-48 hours, and to return to the ED if they have worsening of their symptoms. Please note that this report is being documented using Stream[employer] technology. This can lead to erroneous entry secondary to incorrect interpretation by the dictating instrument. Pradip Simons MD Jan 03, 2019 00:45
[2019-01-03 00:46] LABS: BILIRUBIN,DIRECT 0.4 MG/DL (0.0-0.3)
[2019-01-03] MEDS ORDERED: Ketorolac 30mg Inj IV ONE (01:30)
[2019-01-03] MEDS ORDERED: Morphine Sulfate 4mg/ml Inj (IV USE ONLY) IVP ONE (01:30)
[2019-01-03] MEDS ORDERED: Dicyclomine HCl 10mg/5ml oral soln ORAL ONE (01:30)
[2019-01-03] MEDS ORDERED: Mylanta II UD 30ml ORAL ONE (01:30)
[2019-01-03] MEDS ORDERED: DiphenhydrAMINE 50mg/ml Inj IVP ONE (01:30)
--- NOTE | 2019-01-03 02:00 | NUR ---
ED Nurse Note: PATIENT RESTING COMFORTABLY IN BED WITH NO ACUTE DISTRESS. RESPIRATIONS EVEN AND UNLABORED. PATIENT REPORTS RELIEF OF PAIN AFTER MEDICATION. PATIENT STILL UNABLE TO PROVIDE URINE AT THIS TIME. REFUSED STRAIGHT CATH. ERMD AWARE. NO NEW ORDERS AT THIS TIME.
[2019-01-03 02:16] VITALS: BP 120/70
--- NOTE | 2019-01-03 03:00 | NUR ---
ED Nurse Note: urine collected; sent down to lab.
[2019-01-03 03:14] VITALS: BP 122/80
[2019-01-03 03:20] LABS: APPEARANCE,URINE CLEAR; BILIRUBIN, URINE NEGATIVE (NEGATIVE); COLOR,URINE PALE YELLOW; GLUCOSE, URINE (UA) NEGATIVE (NEGATIVE); KETONES,URINE NEGATIVE (NEGATIVE); LEUKOCYTE ESTERASE ,URINE 1+ (NEGATIVE); NITRITE,URINE POSITIVE (NEGATIVE); PH,URINE 6 (4.5-8.0); PROTEIN,URINE NEGATIVE (NEGATIVE); UROBILINOGEN,URINE 1 MG/DL (0.0-1.0)
[2019-01-03] MEDS ORDERED: CEPHALEXIN500 M1 ORAL (03:33)
[2019-01-03 03:40] VITALS: BP 122/80
--- NOTE | 2019-01-03 03:40 | NUR ---
ER DISCHARGE NOTE: Patient is cleared to be discharged per ERMD, pt is aox4, on room air, with stable vital signs. pt was given dc and prescription instructions, pt was able to verbalize understanding, pt id band and iv site removed without complications. pt is able to ambulate with steady gait. pt took all belongings.
== END 2019-01-03 03:41 | disposition home or self-care (01) ==
LOC: EDBD 23:42 → EMR 23:59
DX: N30.01 Acute cystitis with hematuria (principal)
CPT/HCPCS: 36415; 80053; 81003; 81025; 82248; 83690; 84702; 85025; 85610; 85730; 87491; 87590; 96361; 96374; 96375; J1200; J1885; J2270; J2405; J7030; S0028; Z7502; 99284

== ENCOUNTER 2019-01-03 18:20 | Inpatient (IN) | payer MEDICAID ==
[~2019-01-03] VITALS: Ht 175.3 cm; Wt 68.0 kg
[~2019-01-03 18:20] MED LIST: CEPHALEXIN500 M1 ORAL
[2019-01-03] MEDS ORDERED: Morphine Sulfate 4mg/ml Inj (IV USE ONLY) IVP ONE (18:45)
[2019-01-03] MEDS ORDERED: Isovue-300 100ml vial INJ PRN (18:45)
[2019-01-03] MEDS ORDERED: Ketorolac 30mg Inj IV ONE (18:45)
[2019-01-03] MEDS ORDERED: DiphenhydrAMINE 50mg/ml Inj ONE (18:58)
[2019-01-03] MEDS ORDERED: DiphenhydrAMINE 50mg/ml Inj IVP ONE (19:00)
[2019-01-03 19:04] VITALS: BP 122/84
[2019-01-03 19:25] LABS: ANION GAP 15 mmol/L (5-15); BLOOD UREA NITROGEN 5 mg/dL (7-18); CALCIUM 8.2 MG/DL (8.5-10.1); CARBON DIOXIDE 20 MMOL/L (21-32); CHLORIDE 99 MMOL/L (98-107); CREATININE 0.9 MG/DL (0.55-1.30); POTASSIUM 3.8 MMOL/L (3.5-5.1); SODIUM 134 MMOL/L (136-145)
[2019-01-03 19:28] LABS: HEMATOCRIT 35.3 % (37.0-47.0); HEMOGLOBIN 11.1 G/DL (12.0-16.0); MEAN CORPUSCULAR VOLUME 87 FL (80-99); PLATELET COUNT 249 K/UL (150-450); RED BLOOD COUNT 4.05 M/UL (4.20-5.40); RED CELL DISTRIBUTION WIDTH 18.5 % (11.6-14.8)
[2019-01-03 19:29] LABS: ALANINE AMINOTRANSFERASE 19 U/L (12-78); ALBUMIN 3.1 G/DL (3.4-5.0); ALBUMIN/GLOBULIN RATIO 0.8 (1.0-2.7); ALKALINE PHOSPHATASE 101 U/L (46-116); ASPARTATE AMINO TRANSFERASE 25 U/L (15-37)
[2019-01-03 19:30] VITALS: BP 130/84
[2019-01-03 19:31] LABS: BASOPHILS % (AUTO) 0.3 % (0.0-2.0); LYMPHOCYTES % (AUTO) 7.9 % (20.0-45.0); MONOCYTES % (AUTO) 2.3 % (1.0-10.0); NEUTROPHILS % (AUTO) 89.5 % (45.0-75.0)
[2019-01-03] MEDS ORDERED: HYDROmorphone 1mg/ml Carpuject IVP ONE (19:45)
--- NOTE | 2019-01-03 20:10 | Emergency Room Report ---
History of Present Illness General Chief Complaint: Abdominal Pain Source: Patient, Medical Record, EMS (Kobe Arteaga MD) Present Illness HPI 33-year-old female presents ED for evaluation. Brought in by EMS from home complaining of abdominal pain. Pain is diffuse. 10 out of 10, nonradiating. Notes multiple episodes of vomiting. States she was here yesterday for similar presentation. Had labs and urine. Was discharged home with prescriptions but was unable to fill the prescriptions as the pain got worse. Denies fevers or chills. Denies chest pain or shortness of breath. No other aggravating relieving factors. Denies any other associated symptoms (Kobe Arteaga MD) Allergies: Coded Allergies: No Known Allergies (Unverified , 06/16/18) Patient History Past Medical History: other - pancreatitis Past Surgical History: none Pertinent Family History: none Social History: Denies: smoking, alcohol use, drug use Last Menstrual Period: 12/30/2018 Now: No Immunizations: UTD Reviewed Nursing Documentation: PMH: Agreed; PSxH: Agreed (Kobe Arteaga MD) Nursing Documentation-PMH Past Medical History: No History, Except For Hx Cardiac Problems: No Hx Cancer: No Hx Gastrointestinal Problems: Yes - PANCREATITIS Hx Neurological Problems: No (Kobe Arteaga MD) Review of Systems All Other Systems: negative except mentioned in HPI (Kobe Arteaga MD) Physical Exam Vital Signs Date Time Temp Pulse Resp B/P (MAP) Pulse Ox O2 Delivery O2 Flow Rate FiO2 01/03/19 18:20 98.1 82 16 122/84 (97) 99 Room Air Sp02 EP Interpretation: reviewed, normal General Appearance: alert, GCS 15, non-toxic, mild distress Head: normocephalic, atraumatic Eyes: bilateral eye normal inspection, bilateral eye PERRL ENT: hearing grossly normal, normal pharynx, no angioedema, normal voice Neck: full range of motion, supple/symm/no masses Respiratory: chest non-tender, lungs clear, normal breath sounds, speaking full sentences Cardiovascular #1: regular rate, rhythm, no edema Cardiovascular #2: 2+ carotid (R), 2+ carotid (L), 2+ radial (R), 2+ radial (L) , 2+ dorsalis pedis (R), 2+ dorsalis pedis (L) Gastrointestinal: normal bowel sounds, soft, non-distended, no rebound, guarding, tenderness Rectal: deferred Genitourinary: normal inspection, no CVA tenderness Musculoskeletal: back normal, normal range of motion, gait/station normal, non- tender Neurologic: alert, motor strength/tone normal, oriented x3, sensory intact, responsive, speech normal Psychiatric: judgement/insight normal, memory normal, mood/affect normal, no suicidal/homicidal ideation Reflexes: 3+ bicep (R), 3+ bicep (L), 3+ tricep (R), 3+ tricep (L), 3+ knee (R) , 3+ knee (L) Skin: no rash Lymphatic: no adenopathy (Kobe Arteaga MD) Medical Decision Making Diagnostic Impression: Primary Impression: Malrotation of intestine Additional Impression: Volvulus Labs Test 01/03/19 19:00 White Blood Count 8.0 K/UL (4.8-10.8) Red Blood Count 4.05 M/UL (4.20-5.40) Hemoglobin 11.1 G/DL (12.0-16.0) Hematocrit 35.3 % (37.0-47.0) Mean Corpuscular Volume 87 FL (80-99) Mean Corpuscular Hemoglobin 27.3 PG (27.0-31.0) Mean Corpuscular Hemoglobin Concent 31.3 G/DL (32.0-36.0) Red Cell Distribution Width 18.5 % (11.6-14.8) Platelet Count 249 K/UL (150-450) Mean Platelet Volume 6.5 FL (6.5-10.1) Neutrophils (%) (Auto) 89.5 % (45.0-75.0) Lymphocytes (%) (Auto) 7.9 % (20.0-45.0) Monocytes (%) (Auto) 2.3 % (1.0-10.0) Eosinophils (%) (Auto) 0.0 % (0.0-3.0) Basophils (%) (Auto) 0.3 % (0.0-2.0) Sodium Level 134 MMOL/L (136-145) Potassium Level 3.8 MMOL/L (3.5-5.1) Chloride Level 99 MMOL/L (98-107) Carbon Dioxide Level 20 MMOL/L (21-32) Anion Gap 15 mmol/L (5-15) Blood Urea Nitrogen 5 mg/dL (7-18) Creatinine 0.9 MG/DL (0.55-1.30) Estimat Glomerular Filtration Rate > 60 mL/min (>60) Glucose Level 68 MG/DL (74-106) Calcium Level 8.2 MG/DL (8.5-10.1) Total Bilirubin 1.0 MG/DL (0.2-1.0) Aspartate Amino Transf (AST/SGOT) 25 U/L (15-37) Alanine Aminotransferase (ALT/SGPT) 19 U/L (12-78) Alkaline Phosphatase 101 U/L (46-116) Total Protein 7.0 G/DL (6.4-8.2) Albumin 3.1 G/DL (3.4-5.0) Globulin 3.9 g/dL Albumin/Globulin Ratio 0.8 (1.0-2.7) Lipase 109 U/L (73-393) (Kobe Arteaga MD) ER Course Patient signed out to me. Please see Dr. Seymour H&P for more information. she presents with abdominal pain and has bowel malrotation and volvulus with obstruction. Similar symptom in the past. Patient insurance approved her for admission here. I contacted Dr. Esquivel for admission. Also let Dr. Bedoya that pt will be admitted here. (Thierry Sebastian MD) Last Vital Signs Date Time Temp Pulse Resp B/P (MAP) Pulse Ox O2 Delivery O2 Flow Rate FiO2 01/03/19 19:24 98.1 01/03/19 19:04 82 16 Room Air 01/03/19 19:04 122/84 99 (Kobe Arteaga MD) Status: improved (Thierry Sebastian MD) Disposition: ADMITTED INPATIENT Condition: Serious Kobe Arteaga MD Jan 03, 2019 20:10 Thierry Sebastian MD Jan 03, 2019 22:12
--- NOTE | 2019-01-03 20:40 | Diagnostic Imaging Report ---
EXAM: CT Abdomen and Pelvis With Intravenous Contrast CLINICAL HISTORY: ABD PAIN TECHNIQUE: Axial computed tomography images of the abdomen and pelvis with intravenous contrast. CTDI is 14.6 mGy and DLP is 832.6 mGy-cm. One or more of the following dose reduction techniques were used: automated exposure control, adjustment of the mA and/or kV according to patient size, use of iterative reconstruction technique. COMPARISON: No relevant prior studies available. FINDINGS: Lung bases: Unremarkable. ABDOMEN: Liver: Fatty liver. 14 mm lesion in the right lobe of the liver. Gallbladder and bile ducts: No calcified stones. No ductal dilation. Pancreas: No evidence of pancreatitis. Swirling of the pancreas along with the bowel and mesenteric vessels. Spleen: Unremarkable. Adrenals: Unremarkable. Kidneys and ureters: Unremarkable. No hydronephrosis. Stomach and bowel: Bowel malrotation and volvulus with twisting of mesentery vessels and bowel. No secondary obstruction. PELVIS: Appendix: Appendix not identified. Bladder: Unremarkable. Reproductive: Unremarkable. ABDOMEN and PELVIS: Intraperitoneal space: Unremarkable. Bones/joints: No acute fracture. Soft tissues: Unremarkable. Vasculature: Unremarkable. No abdominal aortic aneurysm. Lymph nodes: No enlarged lymph nodes. IMPRESSION: 1. Bowel malrotation and volvulus with twisting of mesentery vessels and bowel. No secondary obstruction. 2. Appendix not identified.
[2019-01-03 21:28] LABS: INR 1.2 (0.9-1.1)
[2019-01-03 22:00] VITALS: BP 122/84
[2019-01-03] MEDS ORDERED: Morphine Sulfate 4mg/ml Inj (IV USE ONLY) IVP PRN (22:30)
[2019-01-03 22:45] VITALS: BP 130/94
[2019-01-04] VITALS: BP 141/83
[2019-01-04] MEDS ORDERED: LORazepam 1mg tab ORAL PRN (00:30)
[2019-01-04] MEDS ORDERED: Mylanta II UD 30ml ORAL PRN (00:30)
[2019-01-04] MEDS ORDERED: Milk of Magnesia 30ml Ud ORAL PRN (00:30)
[2019-01-04] MEDS: Hydromorphone 0.5mg/0.5ml inj IVP PRN ×6 (03:25→21:02)
[2019-01-04 04:00] VITALS: BP 117/72
[2019-01-04 06:15] LABS: HEMATOCRIT 29.7 % (37.0-47.0); HEMOGLOBIN 9.5 G/DL (12.0-16.0); MEAN CORPUSCULAR VOLUME 87 FL (80-99); PLATELET COUNT 217 K/UL (150-450); RED BLOOD COUNT 3.42 M/UL (4.20-5.40)
[2019-01-04 06:39] LABS: AMYLASE 24 U/L (25-115); ANION GAP 16 mmol/L (5-15); BLOOD UREA NITROGEN 4 mg/dL (7-18); CALCIUM 7.6 MG/DL (8.5-10.1); CARBON DIOXIDE 19 MMOL/L (21-32); CHLORIDE 100 MMOL/L (98-107); CREATININE 0.8 MG/DL (0.55-1.30); POTASSIUM 3.7 MMOL/L (3.5-5.1); SODIUM 135 MMOL/L (136-145)
[2019-01-04 08:00] VITALS: BP 116/71
[2019-01-04] MEDS: Heparin 5000 units/ml inj SUBQ SCH ×2 (08:40→21:04)
--- NOTE | 2019-01-04 08:57 | Diagnostic Imaging Report ---
EXAM: XR Chest, 1 View CLINICAL HISTORY: F/U TECHNIQUE: Frontal view of the chest. COMPARISON: Chest x-rays dated 06/16/18 FINDINGS: Lungs: Unremarkable. The lungs appear clear. No focal consolidation. Pleural space: Unremarkable. The costophrenic angles are sharp. No visible pneumothorax. Heart: Unremarkable. No cardiomegaly. Mediastinum: Unremarkable. Bones/joints: Unremarkable. IMPRESSION: No acute findings. Previously noted elevated left hemidiaphragm is not as apparent in today's exam.
--- NOTE | 2019-01-04 08:57 | History & Physical ---
History and Physical History & Physicial 33-year-old female presents with malrotation and volvolus. Patient complaining of abdominal pain. Pain is diffuse. 10 out of 10, nonradiating. + vomiting. Denies fevers or chills. Denies chest pain or shortness of breath. No other aggravating relieving factors. Denies any other associated symptoms. Admitted and surgery aware Allergies: No Known Allergies (Unverified , 06/16/18) MEDS reviewed Past Medical History: pancreatitis Past Surgical History: none Pertinent Family History: none Social History: no smoking, alcohol use, drug use physical WDWN NAD clear breath sounds bilaterally without rhonchi or wheeze [id number] without MRG diffuse abdominal tenderness no CCE nonfocal Labs Test 01/03/19 19:00 01/03/19 21:00 01/03/19 22:00 01/04/19 05:30 White Blood Count 8.0 K/UL (4.8-10.8) 10.0 K/UL (4.8-10.8) Red Blood Count 4.05 M/UL (4.20-5.40) 3.42 M/UL (4.20-5.40) Hemoglobin 11.1 G/DL (12.0-16.0) 9.5 G/DL (12.0-16.0) Hematocrit 35.3 % (37.0-47.0) 29.7 % (37.0-47.0) Mean Corpuscular Volume 87 FL (80-99) 87 FL (80-99) Mean Corpuscular Hemoglobin 27.3 PG (27.0-31.0) 27.6 PG (27.0-31.0) Mean Corpuscular Hemoglobin Concent 31.3 G/DL (32.0-36.0) 31.9 G/DL (32.0-36.0) Red Cell Distribution Width 18.5 % (11.6-14.8) 19.0 % (11.6-14.8) Platelet Count 249 K/UL (150-450) 217 K/UL (150-450) Mean Platelet Volume 6.5 FL (6.5-10.1) 5.8 FL (6.5-10.1) Neutrophils (%) (Auto) 89.5 % (45.0-75.0) % (45.0-75.0) Lymphocytes (%) (Auto) 7.9 % (20.0-45.0) % (20.0-45.0) Monocytes (%) (Auto) 2.3 % (1.0-10.0) % (1.0-10.0) Eosinophils (%) (Auto) 0.0 % (0.0-3.0) % (0.0-3.0) Basophils (%) (Auto) 0.3 % (0.0-2.0) % (0.0-2.0) Sodium Level 134 MMOL/L (136-145) 135 MMOL/L (136-145) Potassium Level 3.8 MMOL/L (3.5-5.1) 3.7 MMOL/L (3.5-5.1) Chloride Level 99 MMOL/L (98-107) 100 MMOL/L (98-107) Carbon Dioxide Level 20 MMOL/L (21-32) 19 MMOL/L (21-32) Anion Gap 15 mmol/L (5-15) 16 mmol/L (5-15) Blood Urea Nitrogen 5 mg/dL (7-18) 4 mg/dL (7-18) Creatinine 0.9 MG/DL (0.55-1.30) 0.8 MG/DL (0.55-1.30) Estimat Glomerular Filtration Rate > 60 mL/min (>60) > 60 mL/min (>60) Glucose Level 68 MG/DL (74-106) 67 MG/DL (74-106) Calcium Level 8.2 MG/DL (8.5-10.1) 7.6 MG/DL (8.5-10.1) Total Bilirubin 1.0 MG/DL (0.2-1.0) Aspartate Amino Transf (AST/SGOT) 25 U/L (15-37) Alanine Aminotransferase (ALT/SGPT) 19 U/L (12-78) Alkaline Phosphatase 101 U/L (46-116) Total Protein 7.0 G/DL (6.4-8.2) Albumin 3.1 G/DL (3.4-5.0) Globulin 3.9 g/dL Albumin/Globulin Ratio 0.8 (1.0-2.7) Lipase 109 U/L (73-393) 92 U/L (73-393) Prothrombin Time 12.6 SEC (9.30-11.50) Prothromb Time International Ratio 1.2 (0.9-1.1) Activated Partial Thromboplast Time 31 SEC (23-33) Lactic Acid Level 2.40 mmol/L (0.4-2.0) 2.00 mmol/L (0.4-2.0) 2.70 mmol/L (0.4-2.0) Erythrocyte Sedimentation Rate 41 MM/HR (0-20) C-Reactive Protein, Quantitative 14.3 mg/dL (0.00-0.90) Amylase Level 24 U/L (25-115) IMPRESSION abdominal pain volvolus and malrotation PLAN IV hydration pain control NPO surgical follow up and intervention impression, plan, and exam edited and reviewed in detail care discussed with Billy Morales MD Jan 04, 2019 08:57
[2019-01-04] MEDS ORDERED: NS 500ML ONE (09:58)
[2019-01-04] MEDS: D5NS 1,000 ML IV SCH ×2 (10:56→16:40)
[2019-01-04] MEDS ORDERED: Piperacillin/Tazobactam 3.375 GM in NS 110 ML IVPB SCH (11:00)
[2019-01-04 12:00] VITALS: BP 125/76
--- NOTE | 2019-01-04 13:39 | Consultation ---
History of Present Illness General Date patient seen: Jan 04, 2019 Reason for Hospitalization: Abdominal Pain Present Illness HPI 33-year-old female with history of congenital malrotation presented to [facility] department complaining of worsening abdominal pain nausea and emesis. Patient states that she began her menstrual cycle earlier this week and once it subsided a few days ago began developed some abdominal cramping. Cramping improved and she got better and did not think much of it until day of admission when she began to have severe abdominal pain generalized all quadrants described as a cramping 8 out of 10. Associated nausea and emesis. Seen in emergency department noted to have abnormal labs and a CT scan consistent with known history of congenital malrotation abdominal pain. No obstruction. Patient was admitted for further care and management. Surgery called to evaluate and assist with care. Patient seen, patient evaluated, chart reviewed. Patient states she is been having intermittent episodes since admission. Improved with pain medication. Currently no nausea or vomiting. Passing flatus. Last bowel movement prior to admission normal. Pain does not have radiation. She is amatory but feels discomfort with ambulation. States comfortable when laying in bed. Allergies: Coded Allergies: No Known Allergies (Unverified , 06/16/18) Medication History Scheduled Cephalexin* (Keflex*), 500 MG ORAL EVERY 6 HOURS Patient History History Provided By: Patient Healthcare decision maker Resuscitation status Full Code Advanced Directive on File Past Medical/Surgical History Past Medical/Surgical History: (1) Volvulus (2) Malrotation of intestine Review of Systems Review of Symptoms General ROS: no weight loss or fever Psychological ROS: no depression or mood changes, no memory loss Ophthalmic ROS: no visual changes or eye irritation ENT ROS: no nasal congestion, hearing loss, dizziness Allergy and Immunology ROS: no allergic symptoms or urticaria Hematological and Lymphatic ROS: no swollen glands, unusual bleeding or bruising Endocrine ROS: no polyuria, polydipsia, weight changes, temperature intolerance Respiratory ROS: no cough, shortness of breath, or wheezing Cardiovascular ROS: no chest pain or dyspnea on exertion Gastrointestinal ROS: abdominal pain, no bright red blood in stool. Musculoskeletal ROS: no myalgias or arthralgias Neurological ROS: no TIA or stroke symptoms Dermatological ROS: no new or changing skin lesions, rashes or pruritis Physical Exam Physical Exam General appearance: alert, cooperative, no distress, appears stated age Head: Normocephalic, without obvious abnormality, atraumatic Eyes: conjunctivae/corneas clear. PERRL, EOM's intact. Fundi benign Throat: Lips, mucosa, and tongue normal. Teeth and gums normal Neck: supple, symmetrical, trachea midline, no adenopathy, thyroid: not enlarged, symmetric, no tenderness/mass/nodules, no carotid bruit and no JVD Lungs: clear to auscultation bilaterally Heart: regular rate and rhythm, S1, S2 normal, no murmur, click, rub or gallop Abdomen: soft, right-sided discomfort with palpation voluntary guarding. No rebound bowel sounds normal. No masses, no organomegaly Extremities: extremities normal, atraumatic, no cyanosis or edema Pulses: 2+ and symmetric Skin: Skin color, texture, turgor normal. No rashes or lesions Neurologic: Grossly normal Last 24 Hour Vital Signs Date Time Temp Pulse Resp B/P (MAP) Pulse Ox O2 Delivery O2 Flow Rate FiO2 01/04/19 12:00 98.0 108 16 125/76 (92) 98 01/04/19 09:00 Room Air 01/04/19 08:00 98.1 115 16 116/71 (86) 98 01/04/19 05:40 100.7 01/04/19 04:35 102.0 01/04/19 04:00 101.7 119 20 117/72 (87) 98 01/04/19 01:57 Room Air 01/04/19 00:00 99.4 113 20 141/83 (102) 99 01/03/19 23:10 Room Air 01/03/19 22:45 99.7 104 20 130/94 (106) 98 01/03/19 22:30 98.1 82 14 122/84 98 Room Air 79 01/03/19 22:00 98.1 79 14 122/84 98 Room Air 01/03/19 20:07 98.1 01/03/19 19:30 98.1 80 16 130/84 100 Room Air 01/03/19 19:24 98.1 01/03/19 19:24 98.1 01/03/19 19:04 82 16 Room Air 01/03/19 19:04 98.1 82 16 122/84 99 Room Air 01/03/19 18:20 98.1 82 16 122/84 (97) 99 Room Air Intake and Output 11/22/19 11/23/19 19:00 07:00 # Voids 3 Laboratory Tests Test 01/03/19 19:00 01/03/19 21:00 01/03/19 22:00 01/04/19 05:30 White Blood Count 8.0 K/UL (4.8-10.8) 10.0 K/UL (4.8-10.8) Red Blood Count 4.05 M/UL (4.20-5.40) L 3.42 M/UL (4.20-5.40) L Hemoglobin 11.1 G/DL (12.0-16.0) L 9.5 G/DL (12.0-16.0) L Hematocrit 35.3 % (37.0-47.0) L 29.7 % (37.0-47.0) L Mean Corpuscular Volume 87 FL (80-99) 87 FL (80-99) Mean Corpuscular Hemoglobin 27.3 PG (27.0-31.0) 27.6 PG (27.0-31.0) Mean Corpuscular Hemoglobin Concent 31.3 G/DL (32.0-36.0) L 31.9 G/DL (32.0-36.0) L Red Cell Distribution Width 18.5 % (11.6-14.8) H 19.0 % (11.6-14.8) H Platelet Count 249 K/UL (150-450) 217 K/UL (150-450) Mean Platelet Volume 6.5 FL (6.5-10.1) 5.8 FL (6.5-10.1) L Neutrophils (%) (Auto) 89.5 % (45.0-75.0) H % (45.0-75.0) Lymphocytes (%) (Auto) 7.9 % (20.0-45.0) L % (20.0-45.0) Monocytes (%) (Auto) 2.3 % (1.0-10.0) % (1.0-10.0) Eosinophils (%) (Auto) 0.0 % (0.0-3.0) % (0.0-3.0) Basophils (%) (Auto) 0.3 % (0.0-2.0) % (0.0-2.0) Sodium Level 134 MMOL/L (136-145) L 135 MMOL/L (136-145) L Potassium Level 3.8 MMOL/L (3.5-5.1) 3.7 MMOL/L (3.5-5.1) Chloride Level 99 MMOL/L (98-107) 100 MMOL/L (98-107) Carbon Dioxide Level 20 MMOL/L (21-32) L 19 MMOL/L (21-32) L Anion Gap 15 mmol/L (5-15) 16 mmol/L (5-15) H Blood Urea Nitrogen 5 mg/dL (7-18) L 4 mg/dL (7-18) L Creatinine 0.9 MG/DL (0.55-1.30) 0.8 MG/DL (0.55-1.30) Estimat Glomerular Filtration Rate > 60 mL/min (>60) > 60 mL/min (>60) Glucose Level 68 MG/DL (74-106) L 67 MG/DL (74-106) L Calcium Level 8.2 MG/DL (8.5-10.1) L 7.6 MG/DL (8.5-10.1) L Total Bilirubin 1.0 MG/DL (0.2-1.0) Aspartate Amino Transf (AST/SGOT) 25 U/L (15-37) Alanine Aminotransferase (ALT/SGPT) 19 U/L (12-78) Alkaline Phosphatase 101 U/L (46-116) Total Protein 7.0 G/DL (6.4-8.2) Albumin 3.1 G/DL (3.4-5.0) L Globulin 3.9 g/dL Albumin/Globulin Ratio 0.8 (1.0-2.7) L Lipase 109 U/L (73-393) 92 U/L (73-393) Prothrombin Time 12.6 SEC (9.30-11.50) H Prothromb Time International Ratio 1.2 (0.9-1.1) H Activated Partial Thromboplast Time 31 SEC (23-33) Lactic Acid Level 2.40 mmol/L (0.4-2.0) H 2.00 mmol/L (0.4-2.0) 2.70 mmol/L (0.4-2.0) H Differential Total Cells Counted 100 Neutrophils % (Manual) 91 % (45-75) H Lymphocytes % (Manual) 8 % (20-45) L Monocytes % (Manual) 1 % (1-10) Eosinophils % (Manual) 0 % (0-3) Basophils % (Manual) 0 % (0-2) Band Neutrophils 0 % (0-8) Platelet Estimate Adequate Platelet Morphology Normal Hypochromasia 2+ Anisocytosis 2+ Erythrocyte Sedimentation Rate 41 MM/HR (0-20) H C-Reactive Protein, Quantitative 14.3 mg/dL (0.00-0.90) H Amylase Level 24 U/L (25-115) L Test 01/04/19 10:10 Lactic Acid Level 3.50 mmol/L (0.66-2.22) H Height (Feet): 5 Height (Inches): 9.00 Weight (Pounds): 150 Medications Current Medications Medications (Trade) Dose Ordered Sig/Wendie Route PRN Reason Start Time Stop Time Status Last Admin Dose Admin Acetaminophen (Tylenol) 650 mg Q4H PRN ORAL fever 01/04/19 00:30 02/03/19 00:29 01/04/19 04:05 Al Hydroxide/Mg Hydroxide (Mylanta II) 30 ml Q6H PRN ORAL dyspepsia 01/04/19 00:30 02/03/19 00:29 Dextrose (Dextrose 50%) 25 ml Q30M PRN IV Hypoglycemia 01/04/19 00:30 02/03/19 00:29 Dextrose (Dextrose 50%) 50 ml Q30M PRN IV Hypoglycemia 01/04/19 00:30 02/03/19 00:29 Dextrose/Sodium Chloride 1,000 ml @ 150 mls/hr Q6H40M IV 01/04/19 10:00 02/03/19 09:59 01/04/19 10:56 Diphenhydramine HCl (Benadryl) 25 mg Q6H PRN ORAL Itching/Pruritis 01/04/19 00:30 02/03/19 00:29 Famotidine (Pepcid I.v.) 20 mg Q12HR IVP 01/04/19 09:00 02/03/19 08:59 01/04/19 08:39 Heparin Sodium (Porcine) (Heparin 5000 units/ml) 5,000 units EVERY 12 HOURS SUBQ 01/04/19 09:00 02/03/19 08:59 01/04/19 08:40 Hydromorphone HCl (Dilaudid) 0.5 mg Q3HR PRN IVP Severe Pain (Pain Scale 7-10) 01/04/19 01:00 01/11/19 00:59 01/04/19 09:49 Iopamidol (Isovue-300 100ml) 100 ml NOW PRN INJ Radiology Procedure 01/03/19 18:45 Lorazepam (Ativan) 1 mg Q4H PRN ORAL For Anxiety 01/04/19 00:30 01/11/19 00:29 Magnesium Hydroxide (Mom) 30 ml HSPRN PRN ORAL Constipation 01/04/19 00:30 02/03/19 00:29 Morphine Sulfate (Morphine Sulfate) 2 mg EVERY 3 HOURS PRN IVP Moderate Pain (Pain Scale 4-6) 01/04/19 00:30 01/11/19 00:29 Ondansetron HCl (Zofran) 4 mg PRN PRN IVP Nausea & Vomiting 01/03/19 22:30 Ondansetron HCl (Zofran) 4 mg Q6H PRN IVP Nausea & Vomiting 01/04/19 00:30 02/03/19 00:29 Piperacillin Sod/ Tazobactam Sod 3.375 gm/Sodium Chloride 110 ml @ 27.5 mls/hr Q8H IVPB 01/04/19 11:00 01/11/19 10:59 01/04/19 11:36 Temazepam (Restoril) 15 mg HSPRN PRN ORAL Insomnia 01/04/19 00:30 01/11/19 00:29 Assessment/Plan Problem List: (1) Volvulus Assessment & Plan: 33-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 No obstruction. No bowel changes. No ischemia. Abdominal pain, nausea and vomiting. Nausea vomiting resolved. Abdominal pain intermittent. Passing flatus and had bowel movement recently it was normal prior to admission No leukocytosis. Lactic acidosis. I had a long discussion with the patient at bedside about her CT findings current condition lab findings and examination. Patient does not have an obstructive process but does have a volvulus. Unsure if current symptoms are related to potential intermittent ischemic events or intermittent obstruction that was not seen on CT. I explained to patient that at this time will continue with resuscitation and bowel rest. We will reexamine with serial abdominal exams. If does not improve over the course of the next 24 4 8 hours or condition worsens will plan to take patient to the operating room for exploration given these findings. Thank you will follow with recommendations. NPO IV fluids IV Abx trend labs ICD Codes: K56.2 - Volvulus SNOMED: 3558938 (2) Malrotation of intestine Assessment & Plan: ABDOMEN: Liver: Fatty liver. 14 mm lesion in the right lobe of the liver. Gallbladder and bile ducts: No calcified stones. No ductal dilation. Pancreas: No evidence of pancreatitis. Swirling of the pancreas along with the bowel and mesenteric vessels. Spleen: Unremarkable. Adrenals: Unremarkable. Kidneys and ureters: Unremarkable. No hydronephrosis. Stomach and bowel: Bowel malrotation and volvulus with twisting of mesentery vessels and bowel. No secondary obstruction. PELVIS: Appendix: Appendix not identified. Bladder: Unremarkable. Reproductive: Unremarkable. ABDOMEN and PELVIS: Intraperitoneal space: Unremarkable. Bones/joints: No acute fracture. Soft tissues: Unremarkable. Vasculature: Unremarkable. No abdominal aortic aneurysm. Lymph nodes: No enlarged lymph nodes. IMPRESSION: 1. Bowel malrotation and volvulus with twisting of mesentery vessels and bowel. No secondary obstruction. 2. Appendix not identified. ICD Codes: Q43.3 - Congenital malformations of intestinal fixation SNOMED: [id number] AurelianoJoe Jan 04, 2019 13:39
[2019-01-04 16:00] VITALS: BP 123/73
[2019-01-04] MEDS: Ketorolac 30mg Inj IV PRN (19:20)
[2019-01-04 20:00] VITALS: BP 126/73
[2019-01-04 21:07] LABS: BILIRUBIN, URINE NEGATIVE (NEGATIVE); GLUCOSE, URINE (UA) NEGATIVE (NEGATIVE); KETONES,URINE 2+ (NEGATIVE); LEUKOCYTE ESTERASE ,URINE 2+ (NEGATIVE); NITRITE,URINE POSITIVE (NEGATIVE); PH,URINE 6 (4.5-8.0); PROTEIN,URINE 1+ (NEGATIVE); UROBILINOGEN,URINE 4 MG/DL (0.0-1.0)
[2019-01-04 21:08] LABS: APPEARANCE,URINE CLEAR; COLOR,URINE YELLOW
[2019-01-05] VITALS: BP 115/69
[2019-01-05] MEDS: Hydromorphone 0.5mg/0.5ml inj IVP PRN ×6 (00:11→21:53)
[2019-01-05] MEDS: Ketorolac 30mg Inj IV PRN ×4 (02:15→23:42)
[2019-01-05] MEDS: D5NS 1,000 ML IV SCH ×4 (02:35→19:20)
[2019-01-05] MEDS: Piperacillin/Tazobactam 3.375 GM in NS 110 ML IVPB SCH ×3 (02:35→18:26)
[2019-01-05 04:30] VITALS: BP 109/69
[2019-01-05 05:50] LABS: BASOPHILS % (AUTO) 0.4 % (0.0-2.0); EOSINOPHILS % (AUTO) 0.6 % (0.0-3.0); HEMATOCRIT 26.9 % (37.0-47.0); HEMOGLOBIN 8.6 G/DL (12.0-16.0); LYMPHOCYTES % (AUTO) 13.2 % (20.0-45.0); MEAN CORPUSCULAR VOLUME 88 FL (80-99); MONOCYTES % (AUTO) 1.1 % (1.0-10.0); NEUTROPHILS % (AUTO) 84.7 % (45.0-75.0); PLATELET COUNT 204 K/UL (150-450); RED BLOOD COUNT 3.07 M/UL (4.20-5.40); RED CELL DISTRIBUTION WIDTH 19.1 % (11.6-14.8); WHITE BLOOD COUNT 7.7 K/UL (4.8-10.8)
[2019-01-05 05:59] LABS: AMYLASE 12 U/L (25-115)
[2019-01-05 06:03] LABS: INR 1.4 (0.9-1.1)
[2019-01-05 06:09] LABS: ALANINE AMINOTRANSFERASE 14 U/L (12-78); ALBUMIN/GLOBULIN RATIO 0.6 (1.0-2.7); ALKALINE PHOSPHATASE 78 U/L (46-116); ANION GAP 7 mmol/L (5-15); ASPARTATE AMINO TRANSFERASE 27 U/L (15-37); BILIRUBIN,TOTAL 0.9 MG/DL (0.2-1.0); BLOOD UREA NITROGEN 4 mg/dL (7-18); CALCIUM 6.9 MG/DL (8.5-10.1); CARBON DIOXIDE 24 MMOL/L (21-32); CHLORIDE 104 MMOL/L (98-107); CREATININE 0.8 MG/DL (0.55-1.30); POTASSIUM 3.5 MMOL/L (3.5-5.1); SODIUM 135 MMOL/L (136-145)
[2019-01-05 08:00] VITALS: BP 108/78
[2019-01-05] MEDS: Heparin 5000 units/ml inj SUBQ SCH ×2 (08:29→21:05)
[2019-01-05] MEDS ORDERED: NS 275ml ONE (09:27)
[2019-01-05] MEDS ORDERED: D5NS 1000ml IV ONE ×2 (09:27→17:21)
[2019-01-05] MEDS ORDERED: Tubing IV Secondary IV ONE (09:27)
--- NOTE | 2019-01-05 10:08 | General Progress Note ---
Assessment/Plan Assessment/Plan: IMPRESSION abdominal pain volvolus and malrotation PLAN IV hydration pain control surgical follow up and intervention monitor imaging impression, plan, and exam edited and reviewed in detail care discussed with RN Subjective Allergies: Coded Allergies: No Known Allergies (Unverified , 06/16/18) Subjective care noted gs noted Objective Last 24 Hour Vital Signs Date Time Temp Pulse Resp B/P (MAP) Pulse Ox O2 Delivery O2 Flow Rate FiO2 01/05/19 08:50 98.5 01/05/19 08:00 97.9 92 19 108/78 (88) 97 92 01/05/19 04:30 98.5 94 18 109/69 (82) 99 01/05/19 00:00 98.3 95 18 115/69 (84) 98 01/04/19 21:00 Room Air 01/04/19 20:00 100.5 113 18 126/73 (90) 97 01/04/19 16:25 100.1 01/04/19 16:00 100.3 119 16 123/73 (90) 98 01/04/19 12:00 98.0 108 16 125/76 (92) 98 Intake and Output 01/04/19 01/05/19 18:59 06:59 Intake Total 755.0 ml 2200 ml Balance 755.0 ml 2200 ml Intake IV Total 755.0 ml 2200 ml # Voids 3 Laboratory Tests 01/04/19 10:10: Lactic Acid Level 3.50H 01/04/19 18:00: Lactic Acid Level 3.70H 01/04/19 19:15: Urine Color Yellow, Urine Appearance Clear, Urine pH 6, Urine Specific [place] 1.015, Urine Protein 1+H, Urine Glucose (UA) Negative, Urine Ketones 2+H, Urine Blood 2+H, Urine Nitrite PositiveH, Urine Bilirubin Negative, Urine Urobilinogen 4H, Urine Leukocyte Esterase 2+H, Urine RBC 0-2, Urine WBC 2-4, Urine Squamous Epithelial Cells Few, Urine Bacteria Few, Urine HCG, Qualitative Negative, Urine Opiates Screen Negative, Urine Barbiturates Screen Negative, Phencyclidine (PCP) Screen Negative, Urine Amphetamines Screen Negative, Urine Benzodiazepines Screen Negative, Urine Cocaine Screen Negative, Urine Marijuana (THC) Screen PositiveH 01/04/19 20:00: Lactic Acid Level 4.20H 01/05/19 05:15: White Blood Count 7.7, Red Blood Count 3.07L, Hemoglobin 8.6L, Hematocrit 26.9L , Mean Corpuscular Volume 88, Mean Corpuscular Hemoglobin 28.0, Mean Corpuscular Hemoglobin Concent 31.9L, Red Cell Distribution Width 19.1H, Platelet Count 204, Mean Platelet Volume 6.0L, Neutrophils (%) (Auto) 84.7H, Lymphocytes (%) (Auto) 13.2L, Monocytes (%) (Auto) 1.1, Eosinophils (%) (Auto) 0.6, Basophils (%) (Auto) 0.4, Prothrombin Time 14.9H, Prothromb Time International Ratio 1.4H, Activated Partial Thromboplast Time 42H, Sodium Level 135L, Potassium Level 3.5, Chloride Level 104, Carbon Dioxide Level 24, Anion Gap 7, Blood Urea Nitrogen 4L, Creatinine 0.8, Estimat Glomerular Filtration Rate > 60, Glucose Level 133H, Lactic Acid Level 2.10H, Calcium Level 6.9L, Total Bilirubin 0.9, Aspartate Amino Transf (AST/SGOT) 27, Alanine Aminotransferase (ALT/SGPT) 14, Alkaline Phosphatase 78, Total Protein 5.3L, Albumin 2.0L, Globulin 3.3, Albumin/Globulin Ratio 0.6L, Amylase Level 12L, Lipase 32L Height (Feet): 5 Height (Inches): 9.00 Weight (Pounds): 150 Objective WDWN NAD clear breath sounds bilaterally without rhonchi or wheeze [id number] without MRG abdominal tenderness no CCE nonfocal Billy Esquivel MD Jan 05, 2019 10:08
[2019-01-05 11:52] VITALS: BP 121/88
--- NOTE | 2019-01-05 12:46 | Surgery Progress Note ---
Surgery Progress Note Subjective Additional Comments Patient seen and examined bedside. Patient states that her pain is getting much better. States the Toradol helped more than the Dilaudid. No nausea vomiting fever chills. Able to ambulate better without discomfort. Passing flatus and had a small bowel movement this morning which was soft. No blood seen in bowel movement. Lactic acidosis trending up and now resolved with IV fluid hydration Labs otherwise stable Objective Last 24 Hour Vital Signs Date Time Temp Pulse Resp B/P (MAP) Pulse Ox O2 Delivery O2 Flow Rate FiO2 01/05/19 11:52 98.6 86 20 121/88 (99) 95 86 01/05/19 11:30 98.6 01/05/19 08:50 98.5 01/05/19 08:00 97.9 92 19 108/78 (88) 97 92 01/05/19 04:30 98.5 94 18 109/69 (82) 99 01/05/19 00:00 98.3 95 18 115/69 (84) 98 01/04/19 21:00 Room Air 01/04/19 20:00 100.5 113 18 126/73 (90) 97 01/04/19 16:25 100.1 01/04/19 16:00 100.3 119 16 123/73 (90) 98 I&O Intake and Output 01/04/19 01/05/19 18:59 06:59 Intake Total 755.0 ml 2200 ml Balance 755.0 ml 2200 ml Intake IV Total 755.0 ml 2200 ml # Voids 3 Cardiovascular: RSR Respiratory: clear Abdomen: soft, flat, non-tender - Discomfort, present bowel sounds, non- distended Extremities: no edema, no tenderness, no cyanosis Laboratory Tests Test 01/04/19 18:00 01/04/19 19:15 01/04/19 20:00 01/05/19 05:15 Lactic Acid Level 3.70 mmol/L (0.4-2.0) H 4.20 mmol/L (0.66-2.22) H 2.10 mmol/L (0.4-2.0) H Urine Color Yellow Urine Appearance Clear Urine pH 6 (4.5-8.0) Urine Specific [place] 1.015 (1.005-1.035) Urine Protein 1+ (NEGATIVE) H Urine Glucose (UA) Negative (NEGATIVE) Urine Ketones 2+ (NEGATIVE) H Urine Blood 2+ (NEGATIVE) H Urine Nitrite Positive (NEGATIVE) H Urine Bilirubin Negative (NEGATIVE) Urine Urobilinogen 4 MG/DL (0.0-1.0) H Urine Leukocyte Esterase 2+ (NEGATIVE) H Urine RBC 0-2 /HPF (0 - 2) Urine WBC 2-4 /HPF (0 - 2) Urine Squamous Epithelial Cells Few /LPF (NONE/OCC) Urine Bacteria Few /HPF (NONE) Urine HCG, Qualitative Negative (NEGATIVE) Urine Opiates Screen Negative (NEGATIVE) Urine Barbiturates Screen Negative (NEGATIVE) Phencyclidine (PCP) Screen Negative (NEGATIVE) Urine Amphetamines Screen Negative (NEGATIVE) Urine Benzodiazepines Screen Negative (NEGATIVE) Urine Cocaine Screen Negative (NEGATIVE) Urine Marijuana (THC) Screen Positive (NEGATIVE) H White Blood Count 7.7 K/UL (4.8-10.8) Red Blood Count 3.07 M/UL (4.20-5.40) L Hemoglobin 8.6 G/DL (12.0-16.0) L Hematocrit 26.9 % (37.0-47.0) L Mean Corpuscular Volume 88 FL (80-99) Mean Corpuscular Hemoglobin 28.0 PG (27.0-31.0) Mean Corpuscular Hemoglobin Concent 31.9 G/DL (32.0-36.0) L Red Cell Distribution Width 19.1 % (11.6-14.8) H Platelet Count 204 K/UL (150-450) Mean Platelet Volume 6.0 FL (6.5-10.1) L Neutrophils (%) (Auto) 84.7 % (45.0-75.0) H Lymphocytes (%) (Auto) 13.2 % (20.0-45.0) L Monocytes (%) (Auto) 1.1 % (1.0-10.0) Eosinophils (%) (Auto) 0.6 % (0.0-3.0) Basophils (%) (Auto) 0.4 % (0.0-2.0) Prothrombin Time 14.9 SEC (9.30-11.50) H Prothromb Time International Ratio 1.4 (0.9-1.1) H Activated Partial Thromboplast Time 42 SEC (23-33) H Sodium Level 135 MMOL/L (136-145) L Potassium Level 3.5 MMOL/L (3.5-5.1) Chloride Level 104 MMOL/L (98-107) Carbon Dioxide Level 24 MMOL/L (21-32) Anion Gap 7 mmol/L (5-15) Blood Urea Nitrogen 4 mg/dL (7-18) L Creatinine 0.8 MG/DL (0.55-1.30) Estimat Glomerular Filtration Rate > 60 mL/min (>60) Glucose Level 133 MG/DL (74-106) H Calcium Level 6.9 MG/DL (8.5-10.1) L Total Bilirubin 0.9 MG/DL (0.2-1.0) Aspartate Amino Transf (AST/SGOT) 27 U/L (15-37) Alanine Aminotransferase (ALT/SGPT) 14 U/L (12-78) Alkaline Phosphatase 78 U/L (46-116) Total Protein 5.3 G/DL (6.4-8.2) L Albumin 2.0 G/DL (3.4-5.0) L Globulin 3.3 g/dL Albumin/Globulin Ratio 0.6 (1.0-2.7) L Amylase Level 12 U/L (25-115) L Lipase 32 U/L (73-393) L Test 01/05/19 10:15 Lactic Acid Level 1.50 mmol/L (0.66-2.22) Plan Problems: (1) Volvulus Assessment & Plan: 33-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 No obstruction. No bowel changes. No ischemia. Abdominal pain, nausea and vomiting. Nausea vomiting resolved. Abdominal pain intermittent. Passing flatus and had bowel movement recently it was normal prior to admission No leukocytosis. Lactic acidosis. I had a long discussion with the patient at bedside about her CT findings current condition lab findings and examination. Patient does not have an obstructive process but does have a volvulus. Unsure if current symptoms are related to potential intermittent ischemic events or intermittent obstruction that was not seen on CT. I explained to patient that at this time will continue with resuscitation and bowel rest. We will reexamine with serial abdominal exams. If does not improve over the course of the next 24 4 8 hours or condition worsens will plan to take patient to the operating room for exploration given these findings. Improved 01/05 states pain is better. Lactic acidosis resolved. Passing flatus and having bowel function. Still asking for pain medication stating that pain requires the pain medication despite saying pain is improved and able to ablate better and overall improving. Urine toxicology noted. Patient has been receiving narcotic/opiate pain medication since admission yet urine toxicology negative. I discussed this with patient and she states she has no explanation for it and if anything somewhat laughs about it. Unsure if toxicology screen results a false negative or if potentially other urine used. Fortunately overall patient has shown some improvement today and her examination is significantly improved with no tenderness on exam. Patient states that she is feeling better but not ready to go home. Patient states that she is homeless and would like some time to figure out plans before being discharged. I explained the patient that there is no plan to discharge patient today and that she is still receiving treatment and work-up. Identified to have a UTI on admission which is being treated. Furthermore given patient's history symptomatology and recent events prior to onset of pain including heavy menses that is abnormal from her usual there is considerations that etiology may be endometriosis especially given symptomatic improvement with Toradol. No surgical intervention planned at this time. We will continue to follow with serial abdominal exams. Trend labs. Keep patient n.p.o. for now. Thank you will follow with recommendations. NPO IV fluids IV Abx trend labs (2) Malrotation of intestine Assessment & Plan: ABDOMEN: Liver: Fatty liver. 14 mm lesion in the right lobe of the liver. Gallbladder and bile ducts: No calcified stones. No ductal dilation. Pancreas: No evidence of pancreatitis. Swirling of the pancreas along with the bowel and mesenteric vessels. Spleen: Unremarkable. Adrenals: Unremarkable. Kidneys and ureters: Unremarkable. No hydronephrosis. Stomach and bowel: Bowel malrotation and volvulus with twisting of mesentery vessels and bowel. No secondary obstruction. PELVIS: Appendix: Appendix not identified. Bladder: Unremarkable. Reproductive: Unremarkable. ABDOMEN and PELVIS: Intraperitoneal space: Unremarkable. Bones/joints: No acute fracture. Soft tissues: Unremarkable. Vasculature: Unremarkable. No abdominal aortic aneurysm. Lymph nodes: No enlarged lymph nodes. IMPRESSION: 1. Bowel malrotation and volvulus with twisting of mesentery vessels and bowel. No secondary obstruction. 2. Appendix not identified. Joe Bedoya Jan 05, 2019 12:46
[2019-01-05 15:52] VITALS: BP 113/78
[2019-01-05 20:00] VITALS: BP 117/80
[2019-01-06] VITALS: BP 119/76
[2019-01-06] MEDS: D5NS 1,000 ML IV SCH ×3 (01:04→20:33)
[2019-01-06] MEDS: Piperacillin/Tazobactam 3.375 GM in NS 110 ML IVPB SCH ×3 (02:13→18:50)
[2019-01-06] MEDS: Hydromorphone 0.5mg/0.5ml inj IVP PRN ×3 (02:13→08:25)
[2019-01-06 04:00] VITALS: BP 129/95
[2019-01-06 06:25] LABS: HEMATOCRIT 29.5 % (37.0-47.0); HEMOGLOBIN 9.4 G/DL (12.0-16.0); MEAN CORPUSCULAR VOLUME 86 FL (80-99); PLATELET COUNT 230 K/UL (150-450); RED BLOOD COUNT 3.41 M/UL (4.20-5.40); RED CELL DISTRIBUTION WIDTH 19.1 % (11.6-14.8); WHITE BLOOD COUNT 6.6 K/UL (4.8-10.8)
[2019-01-06 06:38] LABS: ANION GAP 11 mmol/L (5-15); BLOOD UREA NITROGEN 5 mg/dL (7-18); CALCIUM 7.5 MG/DL (8.5-10.1); CARBON DIOXIDE 23 MMOL/L (21-32); CHLORIDE 102 MMOL/L (98-107); CREATININE 0.7 MG/DL (0.55-1.30); POTASSIUM 3.1 MMOL/L (3.5-5.1); SODIUM 136 MMOL/L (136-145)
[2019-01-06] MEDS: Ketorolac 30mg Inj IV PRN ×3 (07:08→20:22)
[2019-01-06 08:00] VITALS: BP 125/79
[2019-01-06] MEDS: Heparin 5000 units/ml inj SUBQ SCH ×2 (09:10→20:32)
[2019-01-06] MEDS: Morphine Sulfate 2mg/ml Inj(IV/IM USE ONLY) IVP PRN ×4 (11:31→22:31)
--- NOTE | 2019-01-06 11:47 | Diagnostic Imaging Report ---
Indication: Abdominal pain Comparison: None Single view of the abdomen obtained Findings: Bowel gas pattern is nonspecific. No mass, ectopic calcifications, or abnormal gas collections are identified. The bones are unremarkable. Impression: No acute findings
[2019-01-06 12:00] VITALS: BP 138/98
[2019-01-06 16:00] VITALS: BP 124/88
--- NOTE | 2019-01-06 18:33 | Surgery Progress Note ---
Surgery Progress Note Subjective Symptoms: improved, passing flatus, pain decreased Objective Last 24 Hour Vital Signs Date Time Temp Pulse Resp B/P (MAP) Pulse Ox O2 Delivery O2 Flow Rate FiO2 01/06/19 16:00 99.3 96 18 124/88 (100) 95 01/06/19 12:00 97.9 95 16 138/98 (111) 100 01/06/19 09:00 Room Air 01/06/19 08:00 98.7 99 16 125/79 (94) 95 01/06/19 04:00 98.8 95 19 129/95 (106) 95 102 01/06/19 00:00 100.2 97 19 119/76 (90) 97 98 01/05/19 21:00 Room Air 01/05/19 20:00 98.7 96 18 117/80 (92) 97 93 01/05/19 19:04 99.6 I&O Intake and Output 01/05/19 01/06/19 19:00 07:00 Intake Total 1350 ml Balance 1350 ml Intake IV Total 1350 ml # Voids 4 Cardiovascular: RSR Respiratory: clear Abdomen: soft, flat, non-tender, present bowel sounds Extremities: no edema, no tenderness, no cyanosis Laboratory Tests Test 01/06/19 05:25 White Blood Count 6.6 K/UL (4.8-10.8) Red Blood Count 3.41 M/UL (4.20-5.40) L Hemoglobin 9.4 G/DL (12.0-16.0) L Hematocrit 29.5 % (37.0-47.0) L Mean Corpuscular Volume 86 FL (80-99) Mean Corpuscular Hemoglobin 27.4 PG (27.0-31.0) Mean Corpuscular Hemoglobin Concent 31.7 G/DL (32.0-36.0) L Red Cell Distribution Width 19.1 % (11.6-14.8) H Platelet Count 230 K/UL (150-450) Mean Platelet Volume 5.6 FL (6.5-10.1) L Neutrophils (%) (Auto) % (45.0-75.0) Lymphocytes (%) (Auto) % (20.0-45.0) Monocytes (%) (Auto) % (1.0-10.0) Eosinophils (%) (Auto) % (0.0-3.0) Basophils (%) (Auto) % (0.0-2.0) Differential Total Cells Counted 100 Neutrophils % (Manual) 83 % (45-75) H Lymphocytes % (Manual) 13 % (20-45) L Monocytes % (Manual) 4 % (1-10) Eosinophils % (Manual) 0 % (0-3) Basophils % (Manual) 0 % (0-2) Band Neutrophils 0 % (0-8) Platelet Estimate Adequate Platelet Morphology Normal Anisocytosis 1+ Sodium Level 136 MMOL/L (136-145) Potassium Level 3.1 MMOL/L (3.5-5.1) L Chloride Level 102 MMOL/L (98-107) Carbon Dioxide Level 23 MMOL/L (21-32) Anion Gap 11 mmol/L (5-15) Blood Urea Nitrogen 5 mg/dL (7-18) L Creatinine 0.7 MG/DL (0.55-1.30) Estimat Glomerular Filtration Rate > 60 mL/min (>60) Glucose Level 136 MG/DL (74-106) H Calcium Level 7.5 MG/DL (8.5-10.1) L Plan Problems: (1) Volvulus Assessment & Plan: 33-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 No obstruction. No bowel changes. No ischemia. Abdominal pain, nausea and vomiting. Nausea vomiting resolved. Abdominal pain intermittent. Passing flatus and had bowel movement recently it was normal prior to admission No leukocytosis. Lactic acidosis. I had a long discussion with the patient at bedside about her CT findings current condition lab findings and examination. Patient does not have an obstructive process but does have a volvulus. Unsure if current symptoms are related to potential intermittent ischemic events or intermittent obstruction that was not seen on CT. I explained to patient that at this time will continue with resuscitation and bowel rest. We will reexamine with serial abdominal exams. If does not improve over the course of the next 24 4 8 hours or condition worsens will plan to take patient to the operating room for exploration given these findings. Improved 01/05 states pain is better. Lactic acidosis resolved. Passing flatus and having bowel function. Still asking for pain medication stating that pain requires the pain medication despite saying pain is improved and able to ablate better and overall improving. Urine toxicology noted. Patient has been receiving narcotic/opiate pain medication since admission yet urine toxicology negative. I discussed this with patient and she states she has no explanation for it and if anything somewhat laughs about it. Unsure if toxicology screen results a false negative or if potentially other urine used. Fortunately overall patient has shown some improvement today and her examination is significantly improved with no tenderness on exam. Patient states that she is feeling better but not ready to go home. Patient states that she is homeless and would like some time to figure out plans before being discharged. I explained the patient that there is no plan to discharge patient today and that she is still receiving treatment and work-up. Identified to have a UTI on admission which is being treated. Furthermore given patient's history symptomatology and recent events prior to onset of pain including heavy menses that is abnormal from her usual there is considerations that etiology may be endometriosis especially given symptomatic improvement with Toradol. No surgical intervention planned at this time. We will continue to follow with serial abdominal exams. Trend labs. Keep patient n.p.o. for now. Thank you will follow with recommendations. diet d/c narcotics d/c planning if tolerating diet and improving IV fluids IV Abx trend labs (2) Malrotation of intestine Assessment & Plan: ABDOMEN: Liver: Fatty liver. 14 mm lesion in the right lobe of the liver. Gallbladder and bile ducts: No calcified stones. No ductal dilation. Pancreas: No evidence of pancreatitis. Swirling of the pancreas along with the bowel and mesenteric vessels. Spleen: Unremarkable. Adrenals: Unremarkable. Kidneys and ureters: Unremarkable. No hydronephrosis. Stomach and bowel: Bowel malrotation and volvulus with twisting of mesentery vessels and bowel. No secondary obstruction. PELVIS: Appendix: Appendix not identified. Bladder: Unremarkable. Reproductive: Unremarkable. ABDOMEN and PELVIS: Intraperitoneal space: Unremarkable. Bones/joints: No acute fracture. Soft tissues: Unremarkable. Vasculature: Unremarkable. No abdominal aortic aneurysm. Lymph nodes: No enlarged lymph nodes. IMPRESSION: 1. Bowel malrotation and volvulus with twisting of mesentery vessels and bowel. No secondary obstruction. 2. Appendix not identified. Joe Bedoya Jan 06, 2019 18:33
[2019-01-06 20:00] VITALS: BP 138/88
--- NOTE | 2019-01-06 20:46 | General Progress Note ---
Assessment/Plan Assessment/Plan: IMPRESSION abdominal pain volvolus and malrotation PLAN IV hydration pain control surgical follow up and intervention monitor imaging- negative by xray advance diet dc planning impression, plan, and exam edited and reviewed in detail care discussed with RN Subjective Allergies: Coded Allergies: No Known Allergies (Unverified , 06/16/18) Subjective care noted gs noted Objective Last 24 Hour Vital Signs Date Time Temp Pulse Resp B/P (MAP) Pulse Ox O2 Delivery O2 Flow Rate FiO2 01/06/19 16:00 99.3 96 18 124/88 (100) 95 01/06/19 12:00 97.9 95 16 138/98 (111) 100 01/06/19 09:00 Room Air 01/06/19 08:00 98.7 99 16 125/79 (94) 95 01/06/19 04:00 98.8 95 19 129/95 (106) 95 102 01/06/19 00:00 100.2 97 19 119/76 (90) 97 98 01/05/19 21:00 Room Air Intake and Output 01/05/19 01/06/19 19:00 07:00 Intake Total 1350 ml Balance 1350 ml IV Total 1350 ml # Voids 4 Laboratory Tests 01/06/19 05:25: White Blood Count 6.6, Red Blood Count 3.41L, Hemoglobin 9.4L, Hematocrit 29.5L , Mean Corpuscular Volume 86, Mean Corpuscular Hemoglobin 27.4, Mean Corpuscular Hemoglobin Concent 31.7L, Red Cell Distribution Width 19.1H, Platelet Count 230, Mean Platelet Volume 5.6L, Neutrophils (%) (Auto) , Lymphocytes (%) (Auto) , Monocytes (%) (Auto) , Eosinophils (%) (Auto) , Basophils (%) (Auto) , Differential Total Cells Counted 100, Neutrophils % ( Manual) 83H, Lymphocytes % (Manual) 13L, Monocytes % (Manual) 4, Eosinophils % ( Manual) 0, Basophils % (Manual) 0, Band Neutrophils 0, Platelet Estimate Adequate, Platelet Morphology Normal, Anisocytosis 1+, Sodium Level 136, Potassium Level 3.1L, Chloride Level 102, Carbon Dioxide Level 23, Anion Gap 11 , Blood Urea Nitrogen 5L, Creatinine 0.7, Estimat Glomerular Filtration Rate > 60, Glucose Level 136H, Calcium Level 7.5L Height (Feet): 5 Height (Inches): 9.00 Weight (Pounds): 150 Objective WDWN NAD clear breath sounds bilaterally without rhonchi or wheeze [id number] without MRG abdominal tenderness no CCE nonfocal Billy Esquivel MD Jan 06, 2019 20:46
[2019-01-07] MEDS: Morphine Sulfate 2mg/ml Inj(IV/IM USE ONLY) IVP PRN ×2 (01:45→05:48)
[2019-01-07] MEDS: Piperacillin/Tazobactam 3.375 GM in NS 110 ML IVPB SCH (03:41)
[2019-01-07] MEDS: Ketorolac 30mg Inj IV PRN ×2 (03:50→10:00)
[2019-01-07 04:00] VITALS: BP 139/90
[2019-01-07 05:29] LABS: BASOPHILS % (AUTO) 1.1 % (0.0-2.0); EOSINOPHILS % (AUTO) 0.7 % (0.0-3.0); HEMATOCRIT 27.2 % (37.0-47.0); HEMOGLOBIN 8.5 G/DL (12.0-16.0); LYMPHOCYTES % (AUTO) 18.3 % (20.0-45.0); MEAN CORPUSCULAR VOLUME 87 FL (80-99); MONOCYTES % (AUTO) 2.7 % (1.0-10.0); NEUTROPHILS % (AUTO) 77.3 % (45.0-75.0); PLATELET COUNT 221 K/UL (150-450); RED BLOOD COUNT 3.13 M/UL (4.20-5.40); RED CELL DISTRIBUTION WIDTH 19.2 % (11.6-14.8); WHITE BLOOD COUNT 4.7 K/UL (4.8-10.8)
[2019-01-07] MEDS: D5NS 1,000 ML IV SCH (05:34)
[2019-01-07 05:47] LABS: ALANINE AMINOTRANSFERASE 19 U/L (12-78); ALBUMIN 2.1 G/DL (3.4-5.0); ALBUMIN/GLOBULIN RATIO 0.5 (1.0-2.7); ALKALINE PHOSPHATASE 208 U/L (46-116); ANION GAP 10 mmol/L (5-15); ASPARTATE AMINO TRANSFERASE 31 U/L (15-37); BILIRUBIN,TOTAL 0.7 MG/DL (0.2-1.0); BLOOD UREA NITROGEN 2 mg/dL (7-18); CALCIUM 7.9 MG/DL (8.5-10.1); CARBON DIOXIDE 22 MMOL/L (21-32); CHLORIDE 108 MMOL/L (98-107); CREATININE 0.6 MG/DL (0.55-1.30); POTASSIUM 3.2 MMOL/L (3.5-5.1); SODIUM 140 MMOL/L (136-145)
[2019-01-07 08:00] VITALS: BP 143/101
--- NOTE | 2019-01-07 08:29 | General Progress Note ---
Assessment/Plan Assessment/Plan: IMPRESSION abdominal pain volvolus and malrotation PLAN IV hydration pain control surgical follow up and clearance advance diet dc planning once cleared impression, plan, and exam edited and reviewed in detail care discussed with RN Subjective Allergies: Coded Allergies: No Known Allergies (Unverified , 06/16/18) Subjective care noted gs noted Objective Last 24 Hour Vital Signs Date Time Temp Pulse Resp B/P (MAP) Pulse Ox O2 Delivery O2 Flow Rate FiO2 01/07/19 08:00 98.8 94 16 143/101 (115) 99 01/07/19 04:00 99.0 89 17 139/90 (106) 97 89 01/06/19 21:22 98.5 01/06/19 21:00 Room Air 01/06/19 20:00 99.7 100 18 138/88 (105) 99 01/06/19 16:00 99.3 96 18 124/88 (100) 95 01/06/19 12:00 97.9 95 16 138/98 (111) 100 01/06/19 09:00 Room Air Intake and Output 01/06/19 01/07/19 19:00 07:00 Intake Total 1710.0 ml 1562.5 ml Balance 1710.0 ml 1562.5 ml Intake Oral 500 ml 480 ml IV Total 1210.0 ml 1082.5 ml # Voids 3 1 Laboratory Tests 01/07/19 05:05: White Blood Count 4.7L, Red Blood Count 3.13L, Hemoglobin 8.5L, Hematocrit 27.2L , Mean Corpuscular Volume 87, Mean Corpuscular Hemoglobin 27.1, Mean Corpuscular Hemoglobin Concent 31.2L, Red Cell Distribution Width 19.2H, Platelet Count 221, Mean Platelet Volume 5.1L, Neutrophils (%) (Auto) 77.3H, Lymphocytes (%) (Auto) 18.3L, Monocytes (%) (Auto) 2.7, Eosinophils (%) (Auto) 0.7, Basophils (%) (Auto) 1.1, Sodium Level 140, Potassium Level 3.2L, Chloride Level 108H, Carbon Dioxide Level 22, Anion Gap 10, Blood Urea Nitrogen 2L, Creatinine 0.6, Estimat Glomerular Filtration Rate > 60, Glucose Level 120H, Calcium Level 7.9L, Total Bilirubin 0.7, Aspartate Amino Transf (AST/SGOT) 31, Alanine Aminotransferase (ALT/SGPT) 19, Alkaline Phosphatase 208H, Total Protein 6.3L, Albumin 2.1L, Globulin 4.2, Albumin/Globulin Ratio 0.5L Height (Feet): 5 Height (Inches): 9.00 Weight (Pounds): 150 Objective WDWN NAD clear breath sounds bilaterally without rhonchi or wheeze [id number] without MRG abdominal tenderness no CCE nonfocal Billy Esquivel MD Jan 07, 2019 08:29
[2019-01-07] MEDS: Heparin 5000 units/ml inj SUBQ SCH (08:59)
--- NOTE | 2019-01-07 11:29 | Surgery Progress Note ---
Surgery Progress Note Subjective Symptoms: improved, tolerating diet, voiding well, passing flatus, pain decreased Additional Comments Patient seen and examined at bedside. Afebrile, hemodynamically stable, labs improved. Pain resolving. No nausea vomiting fever chills. Patient states that she is homeless and want stay in the hospital longer. Was informed by infectious disease of her gonorrhea diagnosis. Given treatment. I had a long discussion with the patient at bedside explaining to her her medical condition care plan and discharge planning. Patient is significantly improved and is ready for discharge. I explained the patient that she needs outpatient follow- up with her primary care physician to review these hospital findings and treatments and care plans. I explained to her she needs GENERAL INTERNAL MEDICINE DOCTOR referral from her primary as an outpatient as well to evaluate for endometriosis is given her history presentation and findings this is a potentially possibility. Furthermore needs follow-up for her gonorrhea treatment to ensure cleared. Rx written discharge instructions given clearly in detail. Discharge planning for today. Objective Last 24 Hour Vital Signs Date Time Temp Pulse Resp B/P (MAP) Pulse Ox O2 Delivery O2 Flow Rate FiO2 01/07/19 09:00 Room Air 01/07/19 08:00 98.8 94 16 143/101 (115) 99 01/07/19 04:00 99.0 89 17 139/90 (106) 97 89 01/06/19 21:22 98.5 01/06/19 21:00 Room Air 01/06/19 20:00 99.7 100 18 138/88 (105) 99 01/06/19 16:00 99.3 96 18 124/88 (100) 95 01/06/19 12:00 97.9 95 16 138/98 (111) 100 I&O Intake and Output 01/06/19 01/07/19 19:00 07:00 Intake Total 1710.0 ml 1562.5 ml Balance 1710.0 ml 1562.5 ml Intake Oral 500 ml 480 ml IV Total 1210.0 ml 1082.5 ml # Voids 3 1 Cardiovascular: RSR Respiratory: clear Abdomen: soft, non-tender, present bowel sounds, non-distended Extremities: no edema, no tenderness, no cyanosis Laboratory Tests Test 01/07/19 05:05 White Blood Count 4.7 K/UL (4.8-10.8) L Red Blood Count 3.13 M/UL (4.20-5.40) L Hemoglobin 8.5 G/DL (12.0-16.0) L Hematocrit 27.2 % (37.0-47.0) L Mean Corpuscular Volume 87 FL (80-99) Mean Corpuscular Hemoglobin 27.1 PG (27.0-31.0) Mean Corpuscular Hemoglobin Concent 31.2 G/DL (32.0-36.0) L Red Cell Distribution Width 19.2 % (11.6-14.8) H Platelet Count 221 K/UL (150-450) Mean Platelet Volume 5.1 FL (6.5-10.1) L Neutrophils (%) (Auto) 77.3 % (45.0-75.0) H Lymphocytes (%) (Auto) 18.3 % (20.0-45.0) L Monocytes (%) (Auto) 2.7 % (1.0-10.0) Eosinophils (%) (Auto) 0.7 % (0.0-3.0) Basophils (%) (Auto) 1.1 % (0.0-2.0) Sodium Level 140 MMOL/L (136-145) Potassium Level 3.2 MMOL/L (3.5-5.1) L Chloride Level 108 MMOL/L (98-107) H Carbon Dioxide Level 22 MMOL/L (21-32) Anion Gap 10 mmol/L (5-15) Blood Urea Nitrogen 2 mg/dL (7-18) L Creatinine 0.6 MG/DL (0.55-1.30) Estimat Glomerular Filtration Rate > 60 mL/min (>60) Glucose Level 120 MG/DL (74-106) H Calcium Level 7.9 MG/DL (8.5-10.1) L Total Bilirubin 0.7 MG/DL (0.2-1.0) Aspartate Amino Transf (AST/SGOT) 31 U/L (15-37) Alanine Aminotransferase (ALT/SGPT) 19 U/L (12-78) Alkaline Phosphatase 208 U/L (46-116) H Total Protein 6.3 G/DL (6.4-8.2) L Albumin 2.1 G/DL (3.4-5.0) L Globulin 4.2 g/dL Albumin/Globulin Ratio 0.5 (1.0-2.7) L Plan Problems: (1) Volvulus Assessment & Plan: 33-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 No obstruction. No bowel changes. No ischemia. Abdominal pain, nausea and vomiting. Nausea vomiting resolved. Abdominal pain intermittent. Passing flatus and had bowel movement recently it was normal prior to admission No leukocytosis. Lactic acidosis. I had a long discussion with the patient at bedside about her CT findings current condition lab findings and examination. Patient does not have an obstructive process but does have a volvulus. Unsure if current symptoms are related to potential intermittent ischemic events or intermittent obstruction that was not seen on CT. I explained to patient that at this time will continue with resuscitation and bowel rest. We will reexamine with serial abdominal exams. If does not improve over the course of the next 24 4 8 hours or condition worsens will plan to take patient to the operating room for exploration given these findings. Improved 01/05 states pain is better. Lactic acidosis resolved. Passing flatus and having bowel function. Still asking for pain medication stating that pain requires the pain medication despite saying pain is improved and able to ablate better and overall improving. Urine toxicology noted. Patient has been receiving narcotic/opiate pain medication since admission yet urine toxicology negative. I discussed this with patient and she states she has no explanation for it and if anything somewhat laughs about it. Unsure if toxicology screen results a false negative or if potentially other urine used. Fortunately overall patient has shown some improvement today and her examination is significantly improved with no tenderness on exam. Patient states that she is feeling better but not ready to go home. Patient states that she is homeless and would like some time to figure out plans before being discharged. I explained the patient that there is no plan to discharge patient today and that she is still receiving treatment and work-up. Identified to have a UTI on admission which is being treated. Furthermore given patient's history symptomatology and recent events prior to onset of pain including heavy menses that is abnormal from her usual there is considerations that etiology may be endometriosis especially given symptomatic improvement with Toradol. Thank you will follow with recommendations. diet d/c rx given IV fluids IV Abx trend labs (2) Malrotation of intestine Assessment & Plan: ABDOMEN: Liver: Fatty liver. 14 mm lesion in the right lobe of the liver. Gallbladder and bile ducts: No calcified stones. No ductal dilation. Pancreas: No evidence of pancreatitis. Swirling of the pancreas along with the bowel and mesenteric vessels. Spleen: Unremarkable. Adrenals: Unremarkable. Kidneys and ureters: Unremarkable. No hydronephrosis. Stomach and bowel: Bowel malrotation and volvulus with twisting of mesentery vessels and bowel. No secondary obstruction. PELVIS: Appendix: Appendix not identified. Bladder: Unremarkable. Reproductive: Unremarkable. ABDOMEN and PELVIS: Intraperitoneal space: Unremarkable. Bones/joints: No acute fracture. Soft tissues: Unremarkable. Vasculature: Unremarkable. No abdominal aortic aneurysm. Lymph nodes: No enlarged lymph nodes. IMPRESSION: 1. Bowel malrotation and volvulus with twisting of mesentery vessels and bowel. No secondary obstruction. 2. Appendix not identified. Joe Bedoya Jan 07, 2019 11:29
[2019-01-07] MEDS ORDERED: cefTRIAXone 1 GM in D5W 55 ML IVPB ONE (11:30)
[2019-01-07 12:00] VITALS: BP 147/103
[2019-01-07] MEDS ORDERED: D5NS 1000ml IV ONE (12:29)
--- NOTE | 2019-01-07 15:45 | Consultation ---
DATE OF CONSULTATION: 01/07/2019 INFECTIOUS DISEASES CONSULTATION CONSULTING PHYSICIAN: Florina Jara M.D. REFERRING PHYSICIAN: Billy Esquivel M.D. REASON FOR CONSULTATION: Gonorrhea. HISTORY OF PRESENTING ILLNESS: This is a 33-year-old lady with history of volvulus and who comes in with nausea, vomiting, and abdominal pain. She also complains of vaginal discharge. She was found to have gonorrhea and an Infectious Diseases consultation obtained for antibiotics. PAST MEDICAL HISTORY: 1. History of volvulus. 2. History of . 3. History of pancreatitis. SOCIAL HISTORY: She is a smoker. She drinks alcohol. No history of drug use. FAMILY HISTORY: Noncontributory. REVIEW OF SYSTEMS: RESPIRATORY: No fever, chills, cough, shortness of breath, or chest pain. CARDIAC: No chest pain. No palpitations. No dizziness. No syncope. GASTROINTESTINAL: She has nausea and vomiting. She has abdominal pain. No diarrhea. GENITOURINARY: She has vaginal discharge. MEDICATIONS: As an inpatient, she is on Tylenol, Zosyn, Ketoralac, subcutaneous heparin, milk of magnesia, Zofran Ativan, Restoril, Benadryl, Mylanta. ALLERGIES: No known drug allergies. PHYSICAL EXAMINATION: VITAL SIGNS: Temperature of 98.8, T-max of 100.2, pulse of 94, respiratory rate of 16, blood pressure 143/101, O2 saturation of 99%. HEENT: Pupils equally reactive to light and accommodation. Mouth appears clean without thrush. NECK: Supple. No adenopathy. No JVD. CARDIOVASCULAR: Regular rate and rhythm. No murmurs. LUNGS: Clear to auscultation bilaterally. No crackles. No wheezes. ABDOMEN: Soft and nontender. No organomegaly. EXTREMITIES: No cyanosis, no clubbing, no edema. LABORATORY AND DIAGNOSTIC DATA: White count 4.7, hemoglobin 8.5, hematocrit 27.2, MCV 87, platelet count of 221, neutrophils of 77%. Sodium 140, potassium 3.2, chloride 108, bicarb 22, BUN 2, creatinine 0.6, glucose 120, calcium 7.9. Total bilirubin 0.7, AST 31, ALT 19, alkaline phosphatase 208. Total protein 6.3. Albumin 2.1. Amylase of 12. Lipase of 32. UA showing 2 to 4 white cells. Chest x-ray showing lungs are clear. Abdominal x-ray was unremarkable. CT abdomen and pelvis showing bowel malrotation and volvulus. No secondary obstruction. Urine toxicology was positive for marijuana. Urine gonorrhea is positive. ASSESSMENT: This is a 33-year-old lady with history of with volvulus who comes in with nausea, vomiting, abdominal pain, and vaginal discharge and is found to have: 1. Gonorrhea. 2. Volvulus. PLAN: 1. Discontinue Zosyn. 2. We will give 1 dose of ceftriaxone. 3. Okay for discharge from ID perspective. I would like to thank, Dr. Esquivel, for this consultation. Florina Jara M.D. DR: SELMA JOB#: [id number] CC: Billy Esquivel M.D.; Fax#: [phone]
--- NOTE | 2019-01-08 08:13 | Discharge Summary ---
Discharge Summary Discharge Summary _ DATE OF ADMISSION: 01/03/2019 DATE OF DISCHARGE: 01/07/2019 DISCHARGED BY: Dr. Esquivel REASON FOR ADMISSION: 33 years old female with past medical history of congenital malrotation, presented to emergency room for evaluation , complaining of diffuse abdominal pain, 10 out of 10, nonradiating , with multiple episodes of non-bloody vomiting. Patient was in emergency department day prior to this presentation and was discharged home with prescription. However, she was unable to fill the prescription. Abdominal pain subsequently got worse. Patient denied chest pain or shortness of breath. Patient denied fever and chills. Upon evaluation vital signs were stable. Laboratory work-up revealed no leukocytosis, hemoglobin 11.1, hematocrit 25.3, platelet count 249. Lactic acid 8.2. Urine toxicology screen was positive for marijuana. Urinalysis revealed positive nitrate, +1 leukocyte esterase , but no pyuria and few bacteria. Urine test was negative. Sodium 134, potassium 3.8. BUN 5 Creatinine 0.9. Glucose 68. AST 25, ALT 19, lipase 109. CT scan of the abdomen and pelvis revealed bowel malrotation and volvulus with twisting of mesenteric vessels and bowel. No secondary obstruction. Patient subsequently was admitted for further management. CONSULTANTS: ID specialist Dr. Jara surgery Dr. Bedoya [facility] COURSE: Patient admitted to medical surgical floor. Patient was kept n.p.o. and started on the IV fluids and empiric antibiotics. Surgeon followed. Patient had a volvulus noted on prior scan in June 2018 as well. No obstruction. No ischemia. At this time patient reported abdominal pain with nausea and vomiting. Pain management was addressed. Antiemetic provided as needed. Patient was passing flatus and had bowel movement. Patient demonstrated no leukocytosis , but evidence of lactic acidosis. Patient also had fevers. Long discussion with the patient was done at the bedside . CT scan findings were discussed with the patient in detail. Patient did not have any obstructive process, but had a volvulus. Patient was explained that she will be continued with fluid resuscitation and bowel rest. Serial abdominal exams will be done. If condition not improved over the next 24 to 48 hours , the plan was to take patient to the operating room for exploration. Fevers resolved, no leukocytosis. Lactic acidosis eventually resolved. Serial abdominal exams were stable. Nausea and vomiting resolved. Pain controlled. Patient slowly started on diet and was able to tolerate it. On her prior admission to ER on 01/03 patient was checked for chlamydia and gonorrhea.. Results came back positive for gonorrhea. Patient received one dose of ceftriaxone. Patient was advised her sexual partner to be tested. ID specialist cleared for discharge. Patient remained afebrile, without leukocytosis and hemodynamically stable. Abdominal pain resolved. Surgeon cleared patient for discharge. Patient clinically stabilized and was ready for discharge home. FINAL DIAGNOSES: Volvulus Malrotation of intestine Abdominal pain-resolved Gonorrhea Lactic acidosis -resolved DISCHARGE MEDICATIONS: See Medication Reconciliation list. DISCHARGE INSTRUCTIONS: Patient was discharged home. Follow-up with primary care provider in 1 week. I have been assigned to dictate discharge summary for this account. I was not involved in the patient's management. Barbara Boland NP Jan 08, 2019 08:13
== END 2019-01-07 12:30 | disposition home or self-care (01) | DRG 254 ==
LOC: EDBD 18:20 → EMR 20:53 → 3E 21:53 → EDBEDREQ 22:03 → 3E 01-04 08:00
DX: Q43.3 Congenital malformations of intestinal fixation (principal); K56.2 Volvulus; R10.9 Unspecified abdominal pain; F17.200 Nicotine dependence, unspecified, uncomplicated; A54.9 Gonococcal infection, unspecified; K76.0 Fatty (change of) liver, not elsewhere classified
CPT/HCPCS: 36415; 71045; 74018; 74177; 80048; 80053; 80307; 81003; 81025; 82150; 82962; 83605; 83690; 85007; 85025; 85610; 85651; 85730; 86140; 86850; 86900; 86901; 96361; 96374; 96375; 99285; J2405; J7030; J8499

== ENCOUNTER 2019-08-05 21:10 | Emergency (ER) | payer MEDICAID ==
[~2019-08-05] VITALS: Ht 154.9 cm; Wt 61.2 kg
[2019-08-05 21:45] VITALS: BP 149/66
[2019-08-05] MEDS ORDERED: Metoclopramide 10mg/2ml Inj IVP ONE (21:45)
[2019-08-05] MEDS ORDERED: HYDROmorphone 1mg/ml Carpuject IVP ONE (21:45)
[2019-08-05] MEDS ORDERED: DiphenhydrAMINE 50mg/ml Inj IVP ONE (21:45)
--- NOTE | 2019-08-05 21:45 | Emergency Room Report ---
History of Present Illness General Chief Complaint: Abdominal Pain Source: Patient Present Illness HPI Patient presents with 2 to 3 days of epigastric pain radiating to her back. In the past she has had pancreatitis with this. She denies any fevers or chills. She is not vomiting blood or coffee grounds. She has been moving her bowels normally. Her last menstruation was in the beginning the month she does not believe she is . She has minimal dysuria at the end of urination today. She rates the pain 9/10 at this time and constant. She has no medication that helps her at home and did not take any. This is preceded by drinking some alcohol 2 to 3 days ago also. No sore throat, chest pain, palpitations, shortness of breath, joint pain, rashes, depression, anxiety, visual changes, dizziness, headache. The patient was admitted December of last year with these discharge diagnoses: Volvulus Malrotation of intestine Abdominal pain-resolved Gonorrhea Lactic acidosis -resolved The patient has been admitted for pancreatitis in the past. 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 COVID-19 Screening: Negative COVID-19 COVID-19 Testing Source: [facility] Patient History Past Medical History: see triage record, old chart reviewed Social History: Reports: smoking, alcohol use, drug use - Cannabis Social History Narrative Lives with friends Last Menstrual Period: 07/17/19 Now: No : 4 Para: 2 Reviewed Nursing Documentation: PMH: Agreed; PSxH: Agreed Nursing Documentation-PMH Past Medical History: No History, Except For Hx Cardiac Problems: No Hx Hypertension: No Hx Pacemaker: No Hx Asthma: No Hx COPD: No Hx Diabetes: No Hx Cancer: No Hx Gastrointestinal Problems: Yes - pancreatitis Hx Dialysis: No History Of Psychiatric Problem: No Hx Neurological Problems: No Hx Cerebrovascular Accident: No Hx Seizures: No Review of Systems All Other Systems: negative except mentioned in HPI Physical Exam Vital Signs Date Time Temp Pulse Resp B/P (MAP) Pulse Ox O2 Delivery O2 Flow Rate FiO2 08/05/19 21:21 97.7 95 22 149/66 (93) 100 Room Air Sp02 EP Interpretation: reviewed, normal General Appearance: well appearing, no apparent distress, GCS 15 Head: normocephalic Eyes: bilateral eye normal inspection, bilateral eye PERRL, bilateral eye EOMI ENT: moist mucus membranes Neck: supple Respiratory: lungs clear, normal breath sounds Cardiovascular #1: regular rate, rhythm Cardiovascular #2: 2+ radial (R) Gastrointestinal: normal inspection, normal bowel sounds, no mass, non- distended, no guarding, no rebound, tenderness - Epigastric and upper abdomen Genitourinary: no CVA tenderness Musculoskeletal: back normal, normal range of motion, gait/station normal Neurologic: alert, oriented x3, grossly normal Psychiatric: mood/affect normal Skin: no rash, warm/dry Medical Decision Making Diagnostic Impression: Primary Impression: Abdominal pain Qualified Codes: R10.13 - Epigastric pain Additional Impressions: Pancreatitis Qualified Codes: K86.0 - Alcohol-induced chronic pancreatitis UTI (urinary tract infection) Qualified Codes: N39.0 - Urinary tract infection, site not specified Substance abuse ER Course Patient presents with epigastric pain. Differential includes gastritis, gallbladder disease, pancreatitis amongst others. Evaluation with labs. Treatment IV hydration, Reglan, Benadryl, Pepcid and Dilaudid. Repeat exams are indicated. Labs remarkable for normal white count and electrolytes. Lipase elevated. Pyuria on urinalysis. Rocephin administered in the emergency department. Patient improved with treatment. Able to tolerate oral intake. Repeat exam improved as it is soft and there is no guarding. Discussed results and treatment plan. Discussed substance abuse and advised to seek help and refrain. Patient stable for outpatient observation and treatment. Laboratory Tests Test 08/05/19 21:30 08/05/19 22:00 Urine Color Yellow Urine Appearance Slightly cloudy Urine pH 6 (4.5-8.0) Urine Specific Kaycee 1.020 (1.005-1.035) Urine Protein 1+ (NEGATIVE) H Urine Glucose (UA) Negative (NEGATIVE) Urine Ketones 4+ (NEGATIVE) H Urine Blood 1+ (NEGATIVE) H Urine Nitrite Negative (NEGATIVE) Urine Bilirubin Negative (NEGATIVE) Urine Urobilinogen 4 MG/DL (0.0-1.0) H Urine Leukocyte Esterase 2+ (NEGATIVE) H Urine RBC 2-4 /HPF (0 - 2) H Urine WBC 10-15 /HPF (0 - 2) H Urine Squamous Epithelial Cells Many /LPF (NONE/OCC) H Urine Bacteria Few /HPF (NONE) Urine Mucus Many /LPF (NONE/OCC) H Urine HCG, Qualitative Negative (NEGATIVE) Urine Opiates Screen Negative (NEGATIVE) Urine Barbiturates Screen Negative (NEGATIVE) Phencyclidine (PCP) Screen Negative (NEGATIVE) Urine Amphetamines Screen Negative (NEGATIVE) Urine Benzodiazepines Screen Negative (NEGATIVE) Urine Cocaine Screen Positive (NEGATIVE) H Urine Marijuana (THC) Screen Positive (NEGATIVE) H White Blood Count 5.0 K/UL (4.8-10.8) Red Blood Count 3.85 M/UL (4.20-5.40) L Hemoglobin 8.9 G/DL (12.0-16.0) L Hematocrit 29.9 % (37.0-47.0) L Mean Corpuscular Volume 78 FL (80-99) L Mean Corpuscular Hemoglobin 23.2 PG (27.0-31.0) L Mean Corpuscular Hemoglobin Concent 29.9 G/DL (32.0-36.0) L Red Cell Distribution Width 20.1 % (11.6-14.8) H Platelet Count 164 K/UL (150-450) Mean Platelet Volume 5.3 FL (6.5-10.1) L Neutrophils (%) (Auto) 73.5 % (45.0-75.0) Lymphocytes (%) (Auto) 17.7 % (20.0-45.0) L Monocytes (%) (Auto) 6.4 % (1.0-10.0) Eosinophils (%) (Auto) 0.7 % (0.0-3.0) Basophils (%) (Auto) 1.7 % (0.0-2.0) Prothrombin Time 11.4 SEC (9.30-11.50) Prothrombin Time INR 1.0 (0.9-1.1) Activated Partial Thromboplast Time 26 SEC (23-33) Sodium Level 134 MMOL/L (136-145) L Potassium Level 3.5 MMOL/L (3.5-5.1) Chloride Level 97 MMOL/L (98-107) L Carbon Dioxide Level 23 MMOL/L (21-32) Anion Gap 14 mmol/L (5-15) Blood Urea Nitrogen 7 mg/dL (7-18) Creatinine 0.9 MG/DL (0.55-1.30) Estimated Glomerular Filtration Rate > 60 mL/min (>60) Glucose Level 87 MG/DL (74-106) Calcium Level 8.9 MG/DL (8.5-10.1) Total Bilirubin 1.1 MG/DL (0.2-1.0) H Direct Bilirubin 0.3 MG/DL (0.0-0.3) Aspartate Amino Transferase (AST) 50 U/L (15-37) H Alanine Aminotransferase (ALT) 30 U/L (12-78) Alkaline Phosphatase 133 U/L (46-116) H Total Protein 8.1 G/DL (6.4-8.2) Albumin 3.6 G/DL (3.4-5.0) Globulin 4.5 g/dL Albumin/Globulin Ratio 0.8 (1.0-2.7) L Lipase 897 U/L (73-393) H Serum Alcohol < 3 mg/dL Last Vital Signs Date Time Temp Pulse Resp B/P (MAP) Pulse Ox O2 Delivery O2 Flow Rate FiO2 08/06/19 00:50 98.1 87 16 137/60 100 Room Air Status: improved Disposition: HOME, SELF-CARE Condition: Improved Scripts Ondansetron Odt* (ZOFRAN ODT*) 4 Mg Tab.rapdis 4 MG BC EVERY 8 HOURS, #6 TAB 0 Refills Prov: Perry Wilkinson MD 08/06/19 Hydrocodone Bit/Acetaminophen 5-325* (NORCO 5-325 TABLET*) 1 Each Tablet 1 TAB ORAL Q6H PRN for FOR PAIN, #8 TAB 0 Refills Prov: Perry Wilkinson MD 08/06/19 Nitrofurantoin Monohyd/M-Cryst* (MACROBID 100 MG*) 100 Mg Capsule 100 MG ORAL EVERY 12 HOURS, #14 CAP Prov: Perry Wilkinson MD 08/06/19 Perry Wilkinson MD Aug 05, 2019 21:45
[2019-08-05 21:58] LABS: APPEARANCE,URINE SLIGHTLY CLOUDY; BILIRUBIN, URINE NEGATIVE (NEGATIVE); GLUCOSE, URINE (UA) NEGATIVE (NEGATIVE); KETONES,URINE 4+ (NEGATIVE); LEUKOCYTE ESTERASE ,URINE 2+ (NEGATIVE); NITRITE,URINE NEGATIVE (NEGATIVE); PH,URINE 6 (4.5-8.0); PROTEIN,URINE 1+ (NEGATIVE); UROBILINOGEN,URINE 4 MG/DL (0.0-1.0)
[2019-08-05 21:59] LABS: COLOR,URINE YELLOW
[2019-08-05 22:13] LABS: BASOPHILS % (AUTO) 1.7 % (0.0-2.0); EOSINOPHILS % (AUTO) 0.7 % (0.0-3.0); HEMATOCRIT 29.9 % (37.0-47.0); HEMOGLOBIN 8.9 G/DL (12.0-16.0); LYMPHOCYTES % (AUTO) 17.7 % (20.0-45.0); MEAN CORPUSCULAR VOLUME 78 FL (80-99); MONOCYTES % (AUTO) 6.4 % (1.0-10.0); NEUTROPHILS % (AUTO) 73.5 % (45.0-75.0); PLATELET COUNT 164 K/UL (150-450); RED BLOOD COUNT 3.85 M/UL (4.20-5.40); RED CELL DISTRIBUTION WIDTH 20.1 % (11.6-14.8)
[2019-08-05 22:24] LABS: CHLORIDE 97 MMOL/L (98-107); POTASSIUM 3.5 MMOL/L (3.5-5.1); SODIUM 134 MMOL/L (136-145)
[2019-08-05 22:31] LABS: ANION GAP 14 mmol/L (5-15); BLOOD UREA NITROGEN 7 mg/dL (7-18); CALCIUM 8.9 MG/DL (8.5-10.1); CARBON DIOXIDE 23 MMOL/L (21-32); CREATININE 0.9 MG/DL (0.55-1.30)
[2019-08-05 22:42] LABS: ALANINE AMINOTRANSFERASE 30 U/L (12-78); ALBUMIN 3.6 G/DL (3.4-5.0); ALBUMIN/GLOBULIN RATIO 0.8 (1.0-2.7); ALKALINE PHOSPHATASE 133 U/L (46-116); ASPARTATE AMINO TRANSFERASE 50 U/L (15-37); BILIRUBIN,DIRECT 0.3 MG/DL (0.0-0.3); BILIRUBIN,TOTAL 1.1 MG/DL (0.2-1.0)
[2019-08-05] MEDS ORDERED: cefTRIAXone 1 GM in NS 55 ML IVPB ONE (23:45)
[2019-08-06] MEDS ORDERED: ONDANSETRON ODT4 MG BC (00:40)
[2019-08-06] MEDS ORDERED: NITROFURANTOIN100 M2 ORAL (00:40)
[2019-08-06] MEDS ORDERED: NORCO 5-325 TA1 EAC1 ORAL (00:40)
[2019-08-06 00:50] VITALS: BP 137/60
== END 2019-08-06 00:50 | disposition home or self-care (01) ==
LOC: EMR 22:11
DX: K86.0 Alcohol-induced chronic pancreatitis (principal); N39.0 Urinary tract infection, site not specified; R10.13 Epigastric pain; F19.10 Other psychoactive substance abuse, uncomplicated; F17.200 Nicotine dependence, unspecified, uncomplicated
CPT/HCPCS: 36415; 80053; 80307; 81003; 81025; 82248; 83690; 85025; 85610; 85730; 87086; 96361; 96365; 96375; G0480; J0696; J1170; J1200; J2765; J7030; S0028; Z7502; 99284

== ENCOUNTER 2019-08-07 00:38 | Inpatient (IN) | payer MEDICAID ==
[~2019-08-07] VITALS: Ht 154.9 cm; Wt 61.2 kg
[~2019-08-07 00:38] MED LIST changes: +NITROFURANTOIN100 M2 ORAL; +NORCO 5-325 TA1 EAC1 ORAL; +ONDANSETRON ODT4 MG BC
--- NOTE | 2019-08-07 00:47 | NUR ---
ED Nurse Note: pt walked in from home c/o abd px, she has a h/o pancreatitis. pt was seen and treated here yesterday for similar symptoms, given a norco prescription but unable to fill it because she did not have her ID on her.
[2019-08-07 00:48] VITALS: BP 138/98
[2019-08-07] MEDS ORDERED: DiphenhydrAMINE 50mg/ml Inj IVP ONE (01:00)
[2019-08-07] MEDS ORDERED: HYDROmorphone 1mg/ml Carpuject IVP ONE (01:00)
[2019-08-07] MEDS ORDERED: Metoclopramide 10mg/2ml Inj IVP ONE (01:00)
--- NOTE | 2019-08-07 01:08 | Emergency Room Report ---
History of Present Illness General Chief Complaint: Abdominal Pain Source: Patient Present Illness HPI Patient was seen last night for vomiting abdominal pain. She was treated in the emergency department and improved. She was given a prescription for [place] but was unable to fill it because she did not have ID. Pain is continuing and worse tonight. She says she is the pain is 10/10 epigastric rating to her back just like last night. Last night she had an minimally elevated lipase. She has a history of pancreatitis. She was also positive for cocaine and alcohol. Patient was found to have a UTI last night. A dose of Rocephin was given. She was also prescribed Macrobid. No fevers, chills, sore throat, chest pain, palpitations, dysuria, shortness of breath, joint pain, rashes, depression, visual changes, dizziness, headache. Patient was last admitted December last year. Discharge diagnoses: Volvulus Malrotation of intestine Abdominal pain-resolved Gonorrhea Lactic acidosis -resolved Allergies: Coded Allergies: No Known Allergies (Unverified , 06/16/18) COVID-19 Screening Contact w/high risk pt: No Recent Travel to affected area: No Experienced COVID-19 symptoms?: No COVID-19 Testing performed INGREDIENT HANDLER: No Patient History Past Medical History: see triage record Social History: Reports: smoking, alcohol use, drug use - Cocaine Social History Narrative Brought by boyfriend Last Menstrual Period: 07/18/19 Now: No Reviewed Nursing Documentation: PMH: Agreed; PSxH: Agreed Nursing Documentation-PMH Hx Cardiac Problems: No Hx Hypertension: No Hx Pacemaker: No Hx Asthma: No Hx COPD: No Hx Diabetes: No Hx Cancer: No Hx Gastrointestinal Problems: Yes - pancreatitis Hx Dialysis: No Hx Neurological Problems: No Hx Cerebrovascular Accident: No Hx Seizures: No Review of Systems All Other Systems: negative except mentioned in HPI Physical Exam Vital Signs Date Time Temp Pulse Resp B/P (MAP) Pulse Ox O2 Delivery O2 Flow Rate FiO2 08/07/19 00:40 97.9 116 18 138/98 (111) 98 Room Air Sp02 EP Interpretation: reviewed, normal General Appearance: well appearing, GCS 15, non-toxic, mild distress Head: normocephalic Eyes: bilateral eye normal inspection, bilateral eye PERRL, bilateral eye EOMI ENT: moist mucus membranes Neck: supple Respiratory: lungs clear, normal breath sounds Cardiovascular #1: regular rate, rhythm Cardiovascular #2: 2+ radial (R) Gastrointestinal: normal inspection, normal bowel sounds, no mass, non- distended, no rebound, guarding - Minimal epigastric, tenderness Genitourinary: no CVA tenderness Musculoskeletal: back normal, normal range of motion, gait/station normal Neurologic: alert, oriented x3, grossly normal Psychiatric: anxious Skin: no rash, warm/dry Medical Decision Making Diagnostic Impression: Primary Impression: Acute pancreatitis Qualified Codes: K85.20 - Alcohol induced acute pancreatitis without necrosis or infection Additional Impressions: Substance abuse UTI (urinary tract infection) Qualified Codes: N30.00 - Acute cystitis without hematuria ER Course Patient was evaluated last night re-presents with increased epigastric pain radiating towards her back and vomiting. Last night she was found to have mildly elevated lipase. She was improved after medical treatment but was unable to fill her medication because of lack of ID. Differential at this time includes gastritis, pancreatitis, gastroenteritis, drug-seeking behavior, peptic ulcer disease amongst others. Evaluation with labs. Treatment with IV hydration, Pepcid, metoclopramide, Benadryl and Dilaudid. Patient still continues with pain after initial half milligram dose. Patient given 1 mg with improvement. Labs significant for normal normal white count and slightly low hematocrit. Patient's lipase is twice to 3 times normal and elevated from yesterday's. No more vomiting at this time. However due to the increased abdominal pain and evidence of pancreatitis the patient is admitted to the hospital. Contact Dr. Lopez. Emergent ultrasound not indicated based on physical exam and laboratory studies. Patient pain decreased on admission. Laboratory Tests Test 08/07/19 01:01 White Blood Count 5.7 K/UL (4.8-10.8) Red Blood Count 4.56 M/UL (4.20-5.40) Hemoglobin 10.4 G/DL (12.0-16.0) L Hematocrit 36.2 % (37.0-47.0) L Mean Corpuscular Volume 79 FL (80-99) L Mean Corpuscular Hemoglobin 22.8 PG (27.0-31.0) L Mean Corpuscular Hemoglobin Concent 28.7 G/DL (32.0-36.0) L Red Cell Distribution Width 19.8 % (11.6-14.8) H Platelet Count 171 K/UL (150-450) Mean Platelet Volume 6.3 FL (6.5-10.1) L Neutrophils (%) (Auto) 63.1 % (45.0-75.0) Lymphocytes (%) (Auto) 28.2 % (20.0-45.0) Monocytes (%) (Auto) 5.9 % (1.0-10.0) Eosinophils (%) (Auto) 1.5 % (0.0-3.0) Basophils (%) (Auto) 1.3 % (0.0-2.0) Urine Color Pale yellow Urine Appearance Slightly cloudy Urine pH 6 (4.5-8.0) Urine Specific [place] 1.020 (1.005-1.035) Urine Protein 1+ (NEGATIVE) H Urine Glucose (UA) Negative (NEGATIVE) Urine Ketones 4+ (NEGATIVE) H Urine Blood 1+ (NEGATIVE) H Urine Nitrite Negative (NEGATIVE) Urine Bilirubin Negative (NEGATIVE) Urine Urobilinogen Normal MG/DL (0.0-1.0) Urine Leukocyte Esterase 2+ (NEGATIVE) H Urine RBC 0-2 /HPF (0 - 2) Urine WBC 30-40 /HPF (0 - 2) H Urine Squamous Epithelial Cells Many /LPF (NONE/OCC) H Urine Bacteria Moderate /HPF (NONE) H Sodium Level 133 MMOL/L (136-145) L Potassium Level 3.4 MMOL/L (3.5-5.1) L Chloride Level 96 MMOL/L (98-107) L Carbon Dioxide Level 21 MMOL/L (21-32) Anion Gap 16 mmol/L (5-15) H Blood Urea Nitrogen 3 mg/dL (7-18) L Creatinine 0.8 MG/DL (0.55-1.30) Estimated Glomerular Filtration Rate > 60 mL/min (>60) Glucose Level 95 MG/DL (74-106) Calcium Level 9.4 MG/DL (8.5-10.1) Total Bilirubin 0.6 MG/DL (0.2-1.0) Aspartate Amino Transferase (AST) 37 U/L (15-37) Alanine Aminotransferase (ALT) 23 U/L (12-78) Alkaline Phosphatase 136 U/L (46-116) H Total Protein 9.2 G/DL (6.4-8.2) H Albumin 4.0 G/DL (3.4-5.0) Globulin 5.2 g/dL Albumin/Globulin Ratio 0.8 (1.0-2.7) L Lipase 1035 U/L (73-393) H Last Vital Signs Date Time Temp Pulse Resp B/P (MAP) Pulse Ox O2 Delivery O2 Flow Rate FiO2 08/07/19 08:00 97.5 70 20 130/90 (103) 100 08/07/19 05:15 Room Air Status: improved Disposition: ADMITTED INPATIENT Condition: Serious Referrals: NON PHYSICIAN (PCP) Perry Wilkinson MD Aug 07, 2019 01:08
[2019-08-07 01:15] LABS: BASOPHILS % (AUTO) 1.3 % (0.0-2.0); BILIRUBIN, URINE NEGATIVE (NEGATIVE); COLOR,URINE PALE YELLOW; EOSINOPHILS % (AUTO) 1.5 % (0.0-3.0); GLUCOSE, URINE (UA) NEGATIVE (NEGATIVE); HEMATOCRIT 36.2 % (37.0-47.0); HEMOGLOBIN 10.4 G/DL (12.0-16.0); KETONES,URINE 4+ (NEGATIVE); LEUKOCYTE ESTERASE ,URINE 2+ (NEGATIVE); LYMPHOCYTES % (AUTO) 28.2 % (20.0-45.0); MEAN CORPUSCULAR VOLUME 79 FL (80-99); MONOCYTES % (AUTO) 5.9 % (1.0-10.0); NEUTROPHILS % (AUTO) 63.1 % (45.0-75.0); NITRITE,URINE NEGATIVE (NEGATIVE); PH,URINE 6 (4.5-8.0); PLATELET COUNT 171 K/UL (150-450); PROTEIN,URINE 1+ (NEGATIVE); RED BLOOD COUNT 4.56 M/UL (4.20-5.40); RED CELL DISTRIBUTION WIDTH 19.8 % (11.6-14.8); UROBILINOGEN,URINE NORMAL MG/DL (0.0-1.0); WHITE BLOOD COUNT 5.7 K/UL (4.8-10.8)
[2019-08-07 01:24] LABS: ANION GAP 16 mmol/L (5-15); APPEARANCE,URINE SLIGHTLY CLOUDY; BLOOD UREA NITROGEN 3 mg/dL (7-18); CALCIUM 9.4 MG/DL (8.5-10.1); CARBON DIOXIDE 21 MMOL/L (21-32); CHLORIDE 96 MMOL/L (98-107); CREATININE 0.8 MG/DL (0.55-1.30); POTASSIUM 3.4 MMOL/L (3.5-5.1); SODIUM 133 MMOL/L (136-145)
[2019-08-07 01:29] LABS: ALANINE AMINOTRANSFERASE 23 U/L (12-78); ALBUMIN/GLOBULIN RATIO 0.8 (1.0-2.7); ALKALINE PHOSPHATASE 136 U/L (46-116); ASPARTATE AMINO TRANSFERASE 37 U/L (15-37); BILIRUBIN,TOTAL 0.6 MG/DL (0.2-1.0)
[2019-08-07] MEDS ORDERED: Hydromorphone 0.5mg/0.5ml inj IVP ONE (02:45)
[2019-08-07] MEDS ORDERED: cefTRIAXone 1 GM in NS 55 ML IVPB ONE (02:45)
--- NOTE | 2019-08-07 03:46 | NUR ---
ED Nurse Note: report given to admitting nurse Rosenda
--- NOTE | 2019-08-07 04:30 | NUR ---
NURSE NOTES: PATIENT WAS SAFELY TRANSFERRED TO UNIT VIA GURNEY FROM ER. REPORT RECEIVED FROM ANGELA LYMAN. BELONGING LIST REVIEWED AND SIGNED WITH PATIENT. ORIENTED PATIENT TO ROOM. PATIENT IS AWAKE, AAOX4, ON ROOM AIR, VSS, NO RESPIRATORY DISTRESS NOTED. PT C/O 10/10 UPPER ABDOMEN PAIN. ABDOMEN IS LARGE, DISTENDED, PAINFUL TO TOUCH UPON ASSESSMENT. PIV INTACT AND PATENT. INFORMED DR. PAULA OF ADMISSION. AWAITING FOR ORDERS. BED IS LOCKED AND LOW, BED ALARMS ACTIVE, SIDE RAILS UPX2 AND CALL LIGHT IS WITHIN REACH. WILL CONTINUE TO MONITOR.
--- NOTE | 2019-08-07 04:57 | NUR ---
Note thomassanto in ED - 08/07/19 at 0457 by JANETTE ER DISCHARGE NOTE: Patient is cleared to be discharged per ERMD, pt is aox4, on room air, with stable vital signs. pt was given dc and prescription instructions, pt was able to verbalize understanding, pt id band and iv site removed without complications. pt is able to ambulate with steady gait. pt took all belongings.
[2019-08-07] MEDS ORDERED: NS w/KCl 20mEq 1000ml 1,000 ML IV SCH (05:45)
[2019-08-07] MEDS ORDERED: Acetaminophen 650 MG SUPP RECTAL PRN ×2 (05:45)
[2019-08-07] MEDS: D5 1/2NS 1,000 ML IV SCH ×2 (07:00→22:23)
[2019-08-07] MEDS ORDERED: Hydromorphone 0.5mg/0.5ml inj IVP PRN (07:00)
--- NOTE | 2019-08-07 07:49 | NUR ---
NURSE NOTES: Report received from Rosenda, RN. Pt awake in bed with no SOB, alert and oriented x 4, bed in lowest position with breaks engaged and alarm on, IV line on left AC patent and intact, no c/o any discomfort at this time, will continue to monitor and proceed with plan of care, call light within reach.
--- NOTE | 2019-08-07 07:49 | NUR ---
HAND-OFF: Report given to ANGELA Jauregui.
[2019-08-07 08:00] VITALS: BP 130/90
[2019-08-07 08:40] LABS: BASOPHILS % (AUTO) 1.2 % (0.0-2.0); EOSINOPHILS % (AUTO) 2.9 % (0.0-3.0); HEMATOCRIT 29.1 % (37.0-47.0); HEMOGLOBIN 8.7 G/DL (12.0-16.0); LYMPHOCYTES % (AUTO) 37.1 % (20.0-45.0); MEAN CORPUSCULAR VOLUME 79 FL (80-99); NEUTROPHILS % (AUTO) 51.7 % (45.0-75.0); PLATELET COUNT 126 K/UL (150-450); RED BLOOD COUNT 3.68 M/UL (4.20-5.40); RED CELL DISTRIBUTION WIDTH 19.1 % (11.6-14.8); WHITE BLOOD COUNT 5.3 K/UL (4.8-10.8)
[2019-08-07 09:08] LABS: AMYLASE 65 U/L (25-115); ANION GAP 14 mmol/L (5-15); BLOOD UREA NITROGEN 3 mg/dL (7-18); CARBON DIOXIDE 20 MMOL/L (21-32); CHLORIDE 102 MMOL/L (98-107); CREATININE 0.7 MG/DL (0.55-1.30); POTASSIUM 3.4 MMOL/L (3.5-5.1); SODIUM 136 MMOL/L (136-145)
--- NOTE | 2019-08-07 10:00 | NUR ---
NURSE NOTES: At 9:50 am, Dr Lopez was informed regarding pt's request for a change in medication dosage and frequency, awaiting reply. Pt informed. Addendum: 08/07/19 at 1151 by Shania Moore RN Contacted Dr. Macdonald's Odell Whaley regarding dosage and frequency change for Diladuid, medication was changed to Diladuid 1 mg Q4 PRN, pt was made aware and was upset and asked RN if she can ask PA again to have Benadryl 50 mg IV with the Diladuid, relayed message to ALAINA Bain and as per ALAINA, retain previous 0.5 mg order until he sees her today. Patient made aware. Will continue to monitor.
--- NOTE | 2019-08-07 11:08 | NUR ---
*-* NO INSURANCE INFORMATION IN THE BAR UNABLE TO SEND CLINICALS OR REVIEW TO INS CO. *-*
[2019-08-07 12:00] VITALS: BP 130/105
--- NOTE | 2019-08-07 12:23 | NUR ---
CASE MANAGEMENT:INITIAL REVIEW 34 YR OLD FEMALE FROM HOME CC;ABDOMINAL PAIN SI;ACUTE PANCREATITIS, UTI. SUBSTANCE ABUSE. 97.9 116 18 138/98 98% ON RA NA 133 K+ 3.4 ALK PHOS 136 LIPASE 1035 UA+ PROTEIN, KETONES, BLOOD, LE, WBC, SQUAMOUS EPITH, BACTERIA IS;REGLAN IV DILAUDID IV IVF NS BOLUS BENADRYL IV ROCEPHIN IV ADMITTED TO MED SURG MED SURG STATUS DCP;PATIENT IS FROM HOME
--- NOTE | 2019-08-07 12:45 | General Progress Note ---
Assessment/Plan Problem List: (1) Anemia ICD Codes: D64.9 - Anemia, unspecified SNOMED: 811524257 (2) UTI (urinary tract infection) ICD Codes: N39.0 - Urinary tract infection, site not specified SNOMED: 53079066 (3) Substance abuse ICD Codes: F19.10 - Other psychoactive substance abuse, uncomplicated SNOMED: 15066376 (4) Acute pancreatitis ICD Codes: K85.90 - Acute pancreatitis without necrosis or infection, unspecified SNOMED: 487375218 Qualifiers: Qualified Codes: K85.20 - Alcohol induced acute pancreatitis without necrosis or infection (5) Abdominal pain ICD Codes: R10.9 - Unspecified abdominal pain SNOMED: 04317028 Assessment/Plan: start clears and advance as tolerated repeat labs in am pain control ivf Subjective Allergies: Coded Allergies: No Known Allergies (Unverified , 06/16/18) Objective Last 24 Hour Vital Signs Date Time Temp Pulse Resp B/P (MAP) Pulse Ox O2 Delivery O2 Flow Rate FiO2 08/07/19 12:00 97.5 80 20 130/105 (113) 100 08/07/19 09:00 Room Air 08/07/19 08:00 97.5 70 20 130/90 (103) 100 08/07/19 05:15 Room Air 08/07/19 04:17 97.9 99 18 138/98 98 Room Air 08/07/19 03:35 97.9 08/07/19 01:35 97.9 08/07/19 00:48 97.9 99 18 138/98 98 Room Air 08/07/19 00:48 116 18 Room Air 08/07/19 00:40 97.9 116 18 138/98 (111) 98 Room Air Intake and Output 08/06/19 08/07/19 19:00 07:00 Intake Total 200 ml Balance 200 ml Intake Oral 200 ml Laboratory Tests 08/07/19 01:01: White Blood Count 5.7, Red Blood Count 4.56, Hemoglobin 10.4L, Hematocrit 36.2L , Mean Corpuscular Volume 79L, Mean Corpuscular Hemoglobin 22.8L, Mean Corpuscular Hemoglobin Concent 28.7L, Red Cell Distribution Width 19.8H, Platelet Count 171, Mean Platelet Volume 6.3L, Neutrophils (%) (Auto) 63.1, Lymphocytes (%) (Auto) 28.2, Monocytes (%) (Auto) 5.9, Eosinophils (%) (Auto) 1.5, Basophils (%) (Auto) 1.3, Urine Color Pale yellow, Urine Appearance Slightly cloudy, Urine pH 6, Urine Specific [place] 1.020, Urine Protein 1+H, Urine Glucose (UA) Negative, Urine Ketones 4+H, Urine Blood 1+H, Urine Nitrite Negative, Urine Bilirubin Negative, Urine Urobilinogen Normal, Urine Leukocyte Esterase 2+H, Urine RBC 0-2, Urine WBC 30-40H, Urine Squamous Epithelial Cells ManyH, Urine Bacteria ModerateH, Sodium Level 133L, Potassium Level 3.4L, Chloride Level 96L, Carbon Dioxide Level 21, Anion Gap 16H, Blood Urea Nitrogen 3L, Creatinine 0.8, Estimat Glomerular Filtration Rate > 60, Glucose Level 95, Calcium Level 9.4, Total Bilirubin 0.6, Aspartate Amino Transf (AST/SGOT) 37, Alanine Aminotransferase (ALT/SGPT) 23, Alkaline Phosphatase 136H, Total Protein 9.2H, Albumin 4.0, Globulin 5.2, Albumin/Globulin Ratio 0.8L, Lipase 1035H 08/07/19 08:30: White Blood Count 5.3, Red Blood Count 3.68L, Hemoglobin 8.7L, Hematocrit 29.1L , Mean Corpuscular Volume 79L, Mean Corpuscular Hemoglobin 23.7L, Mean Corpuscular Hemoglobin Concent 30.0L, Red Cell Distribution Width 19.1H, Platelet Count 126L, Mean Platelet Volume 6.0L, Neutrophils (%) (Auto) 51.7, Lymphocytes (%) (Auto) 37.1, Monocytes (%) (Auto) 7.0, Eosinophils (%) (Auto) 2.9, Basophils (%) (Auto) 1.2, Sodium Level 136, Potassium Level 3.4L, Chloride Level 102, Carbon Dioxide Level 20L, Anion Gap 14, Blood Urea Nitrogen 3L, Creatinine 0.7, Estimat Glomerular Filtration Rate > 60, Glucose Level 85, Calcium Level 8.0L, Lipase 436H, Amylase Level 65 Height (Feet): 5 Height (Inches): 1.00 Weight (Pounds): 135 General Appearance: alert EENT: normal ENT inspection Neck: supple Cardiovascular: normal rate Respiratory/Chest: decreased breath sounds Abdomen: normal bowel sounds, non tender, soft Extremities: non-tender Yakvo Medel MD Aug 07, 2019 12:45
--- NOTE | 2019-08-07 12:49 | Consultation ---
History of Present Illness General Date patient seen: Aug 07, 2019 Chief Complaint: Present Illness Allergies: Coded Allergies: No Known Allergies (Unverified , 06/16/18) Medication History Scheduled Nitrofurantoin Monohyd/M-Cryst* (Macrobid 100 Mg*), 100 MG ORAL EVERY 12 HOURS Ondansetron Odt* (Zofran Odt*), 4 MG BC EVERY 8 HOURS Scheduled PRN Hydrocodone Bit/Acetaminophen 5-325* ([place] 5-325 Tablet*), 1 TAB ORAL Q6H PRN for FOR PAIN Patient History Healthcare decision maker Resuscitation status Advanced Directive on File Physical Exam Last 24 Hour Vital Signs Date Time Temp Pulse Resp B/P (MAP) Pulse Ox O2 Delivery O2 Flow Rate FiO2 08/07/19 12:00 97.5 80 20 130/105 (113) 100 08/07/19 09:00 Room Air 08/07/19 08:00 97.5 70 20 130/90 (103) 100 08/07/19 05:15 Room Air 08/07/19 04:17 97.9 99 18 138/98 98 Room Air 08/07/19 03:35 97.9 08/07/19 01:35 97.9 08/07/19 00:48 97.9 99 18 138/98 98 Room Air 08/07/19 00:48 116 18 Room Air 08/07/19 00:40 97.9 116 18 138/98 (111) 98 Room Air Intake and Output 08/06/19 08/07/19 19:00 07:00 Intake Total 200 ml Balance 200 ml Intake Oral 200 ml Laboratory Tests Test 08/07/19 01:01 08/07/19 08:30 White Blood Count 5.7 K/UL (4.8-10.8) 5.3 K/UL (4.8-10.8) Red Blood Count 4.56 M/UL (4.20-5.40) 3.68 M/UL (4.20-5.40) L Hemoglobin 10.4 G/DL (12.0-16.0) L 8.7 G/DL (12.0-16.0) L Hematocrit 36.2 % (37.0-47.0) L 29.1 % (37.0-47.0) L Mean Corpuscular Volume 79 FL (80-99) L 79 FL (80-99) L Mean Corpuscular Hemoglobin 22.8 PG (27.0-31.0) L 23.7 PG (27.0-31.0) L Mean Corpuscular Hemoglobin Concent 28.7 G/DL (32.0-36.0) L 30.0 G/DL (32.0-36.0) L Red Cell Distribution Width 19.8 % (11.6-14.8) H 19.1 % (11.6-14.8) H Platelet Count 171 K/UL (150-450) 126 K/UL (150-450) L Mean Platelet Volume 6.3 FL (6.5-10.1) L 6.0 FL (6.5-10.1) L Neutrophils (%) (Auto) 63.1 % (45.0-75.0) 51.7 % (45.0-75.0) Lymphocytes (%) (Auto) 28.2 % (20.0-45.0) 37.1 % (20.0-45.0) Monocytes (%) (Auto) 5.9 % (1.0-10.0) 7.0 % (1.0-10.0) Eosinophils (%) (Auto) 1.5 % (0.0-3.0) 2.9 % (0.0-3.0) Basophils (%) (Auto) 1.3 % (0.0-2.0) 1.2 % (0.0-2.0) Urine Color Pale yellow Urine Appearance Slightly cloudy Urine pH 6 (4.5-8.0) Urine Specific [place] 1.020 (1.005-1.035) Urine Protein 1+ (NEGATIVE) H Urine Glucose (UA) Negative (NEGATIVE) Urine Ketones 4+ (NEGATIVE) H Urine Blood 1+ (NEGATIVE) H Urine Nitrite Negative (NEGATIVE) Urine Bilirubin Negative (NEGATIVE) Urine Urobilinogen Normal MG/DL (0.0-1.0) Urine Leukocyte Esterase 2+ (NEGATIVE) H Urine RBC 0-2 /HPF (0 - 2) Urine WBC 30-40 /HPF (0 - 2) H Urine Squamous Epithelial Cells Many /LPF (NONE/OCC) H Urine Bacteria Moderate /HPF (NONE) H Sodium Level 133 MMOL/L (136-145) L 136 MMOL/L (136-145) Potassium Level 3.4 MMOL/L (3.5-5.1) L 3.4 MMOL/L (3.5-5.1) L Chloride Level 96 MMOL/L (98-107) L 102 MMOL/L (98-107) Carbon Dioxide Level 21 MMOL/L (21-32) 20 MMOL/L (21-32) L Anion Gap 16 mmol/L (5-15) H 14 mmol/L (5-15) Blood Urea Nitrogen 3 mg/dL (7-18) L 3 mg/dL (7-18) L Creatinine 0.8 MG/DL (0.55-1.30) 0.7 MG/DL (0.55-1.30) Estimat Glomerular Filtration Rate > 60 mL/min (>60) > 60 mL/min (>60) Glucose Level 95 MG/DL (74-106) 85 MG/DL (74-106) Calcium Level 9.4 MG/DL (8.5-10.1) 8.0 MG/DL (8.5-10.1) L Total Bilirubin 0.6 MG/DL (0.2-1.0) Aspartate Amino Transf (AST/SGOT) 37 U/L (15-37) Alanine Aminotransferase (ALT/SGPT) 23 U/L (12-78) Alkaline Phosphatase 136 U/L (46-116) H Total Protein 9.2 G/DL (6.4-8.2) H Albumin 4.0 G/DL (3.4-5.0) Globulin 5.2 g/dL Albumin/Globulin Ratio 0.8 (1.0-2.7) L Lipase 1035 U/L (73-393) H 436 U/L (73-393) H Amylase Level 65 U/L (25-115) Height (Feet): 5 Height (Inches): 1.00 Weight (Pounds): 135 Medications Current Medications Medications (Trade) Dose Ordered Sig/Wendie Route PRN Reason Start Time Stop Time Status Last Admin Dose Admin Dextrose/Sodium Chloride 1,000 ml @ 60 mls/hr [id number] IV 08/07/19 07:00 09/06/19 06:59 08/07/19 07:00 Hydromorphone HCl (Dilaudid) 0.5 mg Q6H PRN IVP For Pain 08/07/19 07:00 08/14/19 06:59 08/07/19 11:12 Ondansetron HCl (Zofran) 4 mg Q4H PRN IVP Nausea & Vomiting 08/07/19 07:00 09/06/19 06:59 Assessment/Plan Assessment/Plan: (1) Abdominal pain (2) Acute Pancreatitis (3) Substance abuse seen dictated Odell Rowe Aug 07, 2019 12:49
[2019-08-07] MEDS: HYDROmorphone 1mg/ml Carpuject IVP PRN ×2 (14:24→20:16)
--- NOTE | 2019-08-07 15:28 | Consultation ---
History of Present Illness General Date patient seen: Aug 07, 2019 Chief Complaint: Abdominal Pain Present Illness HPI 34 y/o F with hx of pancreatitis, tobacco, alcohol and cocaine use, volvulus Dec 2018, gonorrhea presented to ED on 08/07/19 with vomiting and epigastric abdominal pain rated 10/10 radiating to her back. Was found to have elevaetd lipase and labs positive for cocaine and alcohol. Denied fever, chills, sore throat, chest pain, palpitations, dysuria, shortness of breath, joint pain, rashes, depression, visual changes, dizziness, headache. Allergies: Coded Allergies: No Known Allergies (Unverified , 06/16/18) Medication History Scheduled Nitrofurantoin Monohyd/M-Cryst* (Macrobid 100 Mg*), 100 MG ORAL EVERY 12 HOURS Ondansetron Odt* (Zofran Odt*), 4 MG BC EVERY 8 HOURS Scheduled PRN Hydrocodone Bit/Acetaminophen 5-325* ([place] 5-325 Tablet*), 1 TAB ORAL Q6H PRN for FOR PAIN Patient History Healthcare decision maker Resuscitation status Advanced Directive on File Patient History Narrative . PMhx: as above Shx: Reports: smoking, alcohol use, drug use - Cocaine Fhx: non contributory Review of Systems All Other Systems: negative except mentioned in HPI Physical Exam Physical Exam Narrative General Appearance: alert EENT: normal ENT inspection Neck: supple Cardiovascular: normal rate Respiratory/Chest: decreased breath sounds Abdomen: normal bowel sounds, non tender, soft Extremities: non-tender Last 24 Hour Vital Signs Date Time Temp Pulse Resp B/P (MAP) Pulse Ox O2 Delivery O2 Flow Rate FiO2 08/07/19 12:00 97.5 80 20 130/105 (113) 100 08/07/19 09:00 Room Air 08/07/19 08:00 97.5 70 20 130/90 (103) 100 08/07/19 05:15 Room Air 08/07/19 04:17 97.9 99 18 138/98 98 Room Air 08/07/19 03:35 97.9 08/07/19 01:35 97.9 08/07/19 00:48 97.9 99 18 138/98 98 Room Air 08/07/19 00:48 116 18 Room Air 08/07/19 00:40 97.9 116 18 138/98 (111) 98 Room Air Intake and Output 08/06/19 08/07/19 19:00 07:00 Intake Total 200 ml Balance 200 ml Intake Oral 200 ml Laboratory Tests Test 08/07/19 01:01 08/07/19 08:30 White Blood Count 5.7 K/UL (4.8-10.8) 5.3 K/UL (4.8-10.8) Red Blood Count 4.56 M/UL (4.20-5.40) 3.68 M/UL (4.20-5.40) L Hemoglobin 10.4 G/DL (12.0-16.0) L 8.7 G/DL (12.0-16.0) L Hematocrit 36.2 % (37.0-47.0) L 29.1 % (37.0-47.0) L Mean Corpuscular Volume 79 FL (80-99) L 79 FL (80-99) L Mean Corpuscular Hemoglobin 22.8 PG (27.0-31.0) L 23.7 PG (27.0-31.0) L Mean Corpuscular Hemoglobin Concent 28.7 G/DL (32.0-36.0) L 30.0 G/DL (32.0-36.0) L Red Cell Distribution Width 19.8 % (11.6-14.8) H 19.1 % (11.6-14.8) H Platelet Count 171 K/UL (150-450) 126 K/UL (150-450) L Mean Platelet Volume 6.3 FL (6.5-10.1) L 6.0 FL (6.5-10.1) L Neutrophils (%) (Auto) 63.1 % (45.0-75.0) 51.7 % (45.0-75.0) Lymphocytes (%) (Auto) 28.2 % (20.0-45.0) 37.1 % (20.0-45.0) Monocytes (%) (Auto) 5.9 % (1.0-10.0) 7.0 % (1.0-10.0) Eosinophils (%) (Auto) 1.5 % (0.0-3.0) 2.9 % (0.0-3.0) Basophils (%) (Auto) 1.3 % (0.0-2.0) 1.2 % (0.0-2.0) Urine Color Pale yellow Urine Appearance Slightly cloudy Urine pH 6 (4.5-8.0) Urine Specific [place] 1.020 (1.005-1.035) Urine Protein 1+ (NEGATIVE) H Urine Glucose (UA) Negative (NEGATIVE) Urine Ketones 4+ (NEGATIVE) H Urine Blood 1+ (NEGATIVE) H Urine Nitrite Negative (NEGATIVE) Urine Bilirubin Negative (NEGATIVE) Urine Urobilinogen Normal MG/DL (0.0-1.0) Urine Leukocyte Esterase 2+ (NEGATIVE) H Urine RBC 0-2 /HPF (0 - 2) Urine WBC 30-40 /HPF (0 - 2) H Urine Squamous Epithelial Cells Many /LPF (NONE/OCC) H Urine Bacteria Moderate /HPF (NONE) H Sodium Level 133 MMOL/L (136-145) L 136 MMOL/L (136-145) Potassium Level 3.4 MMOL/L (3.5-5.1) L 3.4 MMOL/L (3.5-5.1) L Chloride Level 96 MMOL/L (98-107) L 102 MMOL/L (98-107) Carbon Dioxide Level 21 MMOL/L (21-32) 20 MMOL/L (21-32) L Anion Gap 16 mmol/L (5-15) H 14 mmol/L (5-15) Blood Urea Nitrogen 3 mg/dL (7-18) L 3 mg/dL (7-18) L Creatinine 0.8 MG/DL (0.55-1.30) 0.7 MG/DL (0.55-1.30) Estimat Glomerular Filtration Rate > 60 mL/min (>60) > 60 mL/min (>60) Glucose Level 95 MG/DL (74-106) 85 MG/DL (74-106) Calcium Level 9.4 MG/DL (8.5-10.1) 8.0 MG/DL (8.5-10.1) L Total Bilirubin 0.6 MG/DL (0.2-1.0) Aspartate Amino Transf (AST/SGOT) 37 U/L (15-37) Alanine Aminotransferase (ALT/SGPT) 23 U/L (12-78) Alkaline Phosphatase 136 U/L (46-116) H Total Protein 9.2 G/DL (6.4-8.2) H Albumin 4.0 G/DL (3.4-5.0) Globulin 5.2 g/dL Albumin/Globulin Ratio 0.8 (1.0-2.7) L Lipase 1035 U/L (73-393) H 436 U/L (73-393) H Amylase Level 65 U/L (25-115) Height (Feet): 5 Height (Inches): 1.00 Weight (Pounds): 135 Medications Current Medications Medications (Trade) Dose Ordered Sig/Wendie Route PRN Reason Start Time Stop Time Status Last Admin Dose Admin Dextrose/Sodium Chloride 1,000 ml @ 60 mls/hr [id number] IV 08/07/19 07:00 09/06/19 06:59 08/07/19 07:00 Hydromorphone HCl (Dilaudid) 1 mg Q6H PRN IVP severe pain 08/07/19 12:51 08/14/19 12:50 08/07/19 14:24 Ondansetron HCl (Zofran) 4 mg Q4H PRN IVP Nausea & Vomiting 08/07/19 07:00 09/06/19 06:59 Assessment/Plan Assessment/Plan: Abx: Ceftriaxone x1 08/06 Assessment: Acute pancreatitis Afebrile No leukocytosis UTI (dysuria) -u/a wbc 30-40, nit neg, leuk +2; sq cells many; ucx p hx of pancreatitis tobacco, alcohol and cocaine use volvulus Dec 2018 hx of gonorrhea Plan: -Continue empiric Ceftriaxone #1 -f/u cx -Monitor CBC/CMP, temperatures -Abd US -STD screeing as patient endorses recent unproctected sex -CT abd/p -Sx f.u Thank you for consulting [facility]. Will continue to follow along with you. Discussed wit Porsche Peter M.D. Aug 07, 2019 15:28
--- NOTE | 2019-08-07 15:50 | Consultation ---
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 Patient states she has not been drinking much recently and has been holding off alcohol though presents again with pancreatitis and has a known history of being a poor historian when it comes to EtOH. Patient states episode began a few days ago 10 out of 10 radiating to the back. Nausea vomiting. Labs noted. No imaging currently. On examination tender in the epigastric region. Given history surgery was called to evaluate and assist with care. Case discussed with GI and ID. Pending testing and imaging. Patient resting comfortably but does have pain. Allergies: Coded Allergies: No Known Allergies (Unverified , 06/16/18) COVID-19 Screening Contact w/high risk pt: No Recent Travel to affected area: No Experienced COVID-19 symptoms?: No Medication History Scheduled Nitrofurantoin Monohyd/M-Cryst* (Macrobid 100 Mg*), 100 MG ORAL EVERY 12 HOURS Ondansetron Odt* (Zofran Odt*), 4 MG BC EVERY 8 HOURS Scheduled PRN Hydrocodone Bit/Acetaminophen 5-325* ([place] 5-325 Tablet*), 1 TAB ORAL Q6H PRN for FOR PAIN Patient History History Provided By: Patient, Medical Record, PMD Healthcare decision maker Resuscitation status Advanced Directive on File Past Medical/Surgical History Past Medical/Surgical History: (1) Pancreatitis (2) Acute pancreatitis (3) Substance abuse (4) UTI (urinary tract infection) (5) Anemia (6) Abdominal pain Review of Systems Review of Symptoms General ROS: no weight loss or fever Psychological ROS: no depression or mood changes, no memory loss Ophthalmic ROS: no visual changes or eye irritation ENT ROS: no nasal congestion, hearing loss, dizziness Allergy and Immunology ROS: no allergic symptoms or urticaria Hematological and Lymphatic ROS: no swollen glands, unusual bleeding or bruising Endocrine ROS: no polyuria, polydipsia, weight changes, temperature intolerance Respiratory ROS: no cough, shortness of breath, or wheezing Cardiovascular ROS: no chest pain or dyspnea on exertion Gastrointestinal ROS: ++abdominal pain, -- bright red blood in stool. Musculoskeletal ROS: no myalgias or arthralgias Neurological ROS: no TIA or stroke symptoms Dermatological ROS: no new or changing skin lesions, rashes or pruritis Physical Exam Physical Exam General appearance: alert, cooperative, no distress, appears stated age Head: Normocephalic, without obvious abnormality, atraumatic Eyes: conjunctivae/corneas clear. PERRL, EOM's intact. Fundi benign Throat: Lips, mucosa, and tongue normal. Teeth and gums normal Neck: supple, symmetrical, trachea midline, no adenopathy, thyroid: not enlarged, symmetric, no tenderness/mass/nodules, no carotid bruit and no JVD Lungs: clear to auscultation bilaterally Heart: regular rate and rhythm, S1, S2 normal, no murmur, click, rub or gallop Abdomen: soft, epigastric-tender. Bowel sounds normal. No masses, no organomegaly Extremities: extremities normal, atraumatic, no cyanosis or edema Pulses: 2+ and symmetric Skin: Skin color, texture, turgor normal. No rashes or lesions Neurologic: Grossly normal Last 24 Hour Vital Signs Date Time Temp Pulse Resp B/P (MAP) Pulse Ox O2 Delivery O2 Flow Rate FiO2 08/07/19 15:19 97.5 08/07/19 12:00 97.5 80 20 130/105 (113) 100 08/07/19 09:00 Room Air 08/07/19 08:00 97.5 70 20 130/90 (103) 100 08/07/19 05:15 Room Air 08/07/19 04:17 97.9 99 18 138/98 98 Room Air 08/07/19 03:35 97.9 08/07/19 01:35 97.9 08/07/19 00:48 97.9 99 18 138/98 98 Room Air 08/07/19 00:48 116 18 Room Air 08/07/19 00:40 97.9 116 18 138/98 (111) 98 Room Air Intake and Output 08/06/19 08/07/19 19:00 07:00 Intake Total 200 ml Balance 200 ml Intake Oral 200 ml Laboratory Tests Test 08/07/19 01:01 08/07/19 08:30 White Blood Count 5.7 K/UL (4.8-10.8) 5.3 K/UL (4.8-10.8) Red Blood Count 4.56 M/UL (4.20-5.40) 3.68 M/UL (4.20-5.40) L Hemoglobin 10.4 G/DL (12.0-16.0) L 8.7 G/DL (12.0-16.0) L Hematocrit 36.2 % (37.0-47.0) L 29.1 % (37.0-47.0) L Mean Corpuscular Volume 79 FL (80-99) L 79 FL (80-99) L Mean Corpuscular Hemoglobin 22.8 PG (27.0-31.0) L 23.7 PG (27.0-31.0) L Mean Corpuscular Hemoglobin Concent 28.7 G/DL (32.0-36.0) L 30.0 G/DL (32.0-36.0) L Red Cell Distribution Width 19.8 % (11.6-14.8) H 19.1 % (11.6-14.8) H Platelet Count 171 K/UL (150-450) 126 K/UL (150-450) L Mean Platelet Volume 6.3 FL (6.5-10.1) L 6.0 FL (6.5-10.1) L Neutrophils (%) (Auto) 63.1 % (45.0-75.0) 51.7 % (45.0-75.0) Lymphocytes (%) (Auto) 28.2 % (20.0-45.0) 37.1 % (20.0-45.0) Monocytes (%) (Auto) 5.9 % (1.0-10.0) 7.0 % (1.0-10.0) Eosinophils (%) (Auto) 1.5 % (0.0-3.0) 2.9 % (0.0-3.0) Basophils (%) (Auto) 1.3 % (0.0-2.0) 1.2 % (0.0-2.0) Urine Color Pale yellow Urine Appearance Slightly cloudy Urine pH 6 (4.5-8.0) Urine Specific [place] 1.020 (1.005-1.035) Urine Protein 1+ (NEGATIVE) H Urine Glucose (UA) Negative (NEGATIVE) Urine Ketones 4+ (NEGATIVE) H Urine Blood 1+ (NEGATIVE) H Urine Nitrite Negative (NEGATIVE) Urine Bilirubin Negative (NEGATIVE) Urine Urobilinogen Normal MG/DL (0.0-1.0) Urine Leukocyte Esterase 2+ (NEGATIVE) H Urine RBC 0-2 /HPF (0 - 2) Urine WBC 30-40 /HPF (0 - 2) H Urine Squamous Epithelial Cells Many /LPF (NONE/OCC) H Urine Bacteria Moderate /HPF (NONE) H Sodium Level 133 MMOL/L (136-145) L 136 MMOL/L (136-145) Potassium Level 3.4 MMOL/L (3.5-5.1) L 3.4 MMOL/L (3.5-5.1) L Chloride Level 96 MMOL/L (98-107) L 102 MMOL/L (98-107) Carbon Dioxide Level 21 MMOL/L (21-32) 20 MMOL/L (21-32) L Anion Gap 16 mmol/L (5-15) H 14 mmol/L (5-15) Blood Urea Nitrogen 3 mg/dL (7-18) L 3 mg/dL (7-18) L Creatinine 0.8 MG/DL (0.55-1.30) 0.7 MG/DL (0.55-1.30) Estimat Glomerular Filtration Rate > 60 mL/min (>60) > 60 mL/min (>60) Glucose Level 95 MG/DL (74-106) 85 MG/DL (74-106) Calcium Level 9.4 MG/DL (8.5-10.1) 8.0 MG/DL (8.5-10.1) L Total Bilirubin 0.6 MG/DL (0.2-1.0) Aspartate Amino Transf (AST/SGOT) 37 U/L (15-37) Alanine Aminotransferase (ALT/SGPT) 23 U/L (12-78) Alkaline Phosphatase 136 U/L (46-116) H Total Protein 9.2 G/DL (6.4-8.2) H Albumin 4.0 G/DL (3.4-5.0) Globulin 5.2 g/dL Albumin/Globulin Ratio 0.8 (1.0-2.7) L Lipase 1035 U/L (73-393) H 436 U/L (73-393) H Amylase Level 65 U/L (25-115) Height (Feet): 5 Height (Inches): 1.00 Weight (Pounds): 135 Medications Current Medications Medications (Trade) Dose Ordered Sig/Wendie Route PRN Reason Start Time Stop Time Status Last Admin Dose Admin Dextrose/Sodium Chloride 1,000 ml @ 60 mls/hr [id number] IV 08/07/19 07:00 09/06/19 06:59 08/07/19 07:00 Hydromorphone HCl (Dilaudid) 1 mg Q6H PRN IVP severe pain 08/07/19 12:51 08/14/19 12:50 08/07/19 14:24 Ondansetron HCl (Zofran) 4 mg Q4H PRN IVP Nausea & Vomiting 08/07/19 07:00 09/06/19 06:59 Assessment/Plan Problem List: (1) Acute pancreatitis Assessment & Plan: 34-year-old female acute pancreatitis known history of gallbladder sludge and EtOH use. Denies recent significant EtOH use states only had a glass of wine approximately a week ago. Nausea vomiting associated with the pain. Pain rating to the back currently 10 out of 10. Cramping pain epigastric tender on examination. Given patient's history and known history of malrotation with history of volvulus will obtain a stat CT abdomen pelvis to ensure this is pancreatitis and not a potential manifestation of a another volvulus or concerning bowel pathology given her underlying congenital abnormality. We will follow with recommendations imaging available Case discussed with medical teams thank you for let me participate in patient's care will follow with recommendations ICD Codes: K85.90 - Acute pancreatitis without necrosis or infection, unspecified SNOMED: 917968391 Qualifiers: Qualified Codes: K85.20 - Alcohol induced acute pancreatitis without necrosis or infection (2) Substance abuse ICD Codes: F19.10 - Other psychoactive substance abuse, uncomplicated SNOMED: 50763860 (3) UTI (urinary tract infection) ICD Codes: N39.0 - Urinary tract infection, site not specified SNOMED: 65147209 (4) Anemia ICD Codes: D64.9 - Anemia, unspecified SNOMED: 327015652 (5) Abdominal pain ICD Codes: R10.9 - Unspecified abdominal pain SNOMED: 74827819 (6) Pancreatitis ICD Codes: K85.90 - Acute pancreatitis without necrosis or infection, unspecified SNOMED: 52186864 Joe Bedoya Aug 07, 2019 15:50
[2019-08-07 16:00] VITALS: BP 142/89
[2019-08-07] MEDS ORDERED: Omnipaque-300 100ml vial INJ PRN (16:00)
--- NOTE | 2019-08-07 16:19 | NUR ---
*-* INSURANCE *-* ALL CLINICALS AND REVIEWS HAVE BEEN FAXED: [facility] Auth# [id number] Fax Clinicals: [phone] & [facility] Fax Clinicals: [phone] (They're still processing faxes, no pending auth issued yet)
--- NOTE | 2019-08-07 18:25 | Diagnostic Imaging Report ---
ADDENDUM - Added by Lalo Lewis MD on 08/07/2019 6:36 PM (-07:00) Addendum: -Clinical presentation most consistent with pancreatitis, no specific findings to suggest imaging criteria for pancreatitis seen. This does not exclude the clinical diagnosis of acute pancreatitis. -Pancreas is intimately associated with the duodenal second segment, which may have some mass effect upon it due to volvulus of the midgut; no pancreatic ductal dilation, peripancreatic stranding, or pancreatic enhancement abnormality seen. -This is of uncertain significance. -Volvulized SMV not compressed or occluded. This was discussed at the time of addendum with the ordering provider. EXAM: CT Abdomen and Pelvis With Intravenous Contrast CLINICAL HISTORY: ABD PAIN TECHNIQUE: Axial computed tomography images of the abdomen and pelvis with intravenous contrast. CTDI is 4 mGy and DLP is 205 mGy-cm. One or more of the following dose reduction techniques were used: automated exposure control, adjustment of the mA and/or kV according to patient size, use of iterative reconstruction technique. Coronal and sagittal reformatted images were created and reviewed. COMPARISON: Same-day abdomen ultrasound and CT abdomen and pelvis 01/03/19 FINDINGS: Lung bases: Unremarkable. No mass. No consolidation. ABDOMEN: Liver: Hepatic steatosis, correlate to exclude steatohepatitis. Gallbladder and bile ducts: Unremarkable. No calcified stones. No ductal dilation. Pancreas: Unremarkable. No mass. No ductal dilation. Spleen: Unremarkable. No splenomegaly. Adrenals: Unremarkable. No mass. Kidneys and ureters: Unremarkable. No solid mass. No hydronephrosis. Stomach and bowel: Malrotation and midgut volvulus similar in appearance to prior study with distended stomach and possible at least partial obstruction of the duodenum; small amount of contrast progresses distally in the bowel. No pneumatosis, nonenhancing or hypoenhancing bowel, or portal venous gas. No interloop fluid. No mucosal thickening. PELVIS: Appendix: No findings to suggest acute appendicitis. Bladder: Markedly distended urinary bladder, this could be a cause for pain. Reproductive: Unremarkable as visualized. ABDOMEN and PELVIS: Intraperitoneal space: Unremarkable. No free air. No significant fluid collection. Bones/joints: No acute fracture. No dislocation. Soft tissues: Unremarkable. Vasculature: See above. Lymph nodes: Unremarkable. No enlarged lymph nodes. Other findings: Otherwise no acute abnormality definitively identified to account for patient presentation. IMPRESSION: 1 Unchanged malrotation and midgut volvulus. 2 Distended stomach containing feculent contents suggests partial duodenal obstruction; small amount of contrast progresses distally in the bowel. 3 No pneumatosis, nonenhancing or hypoenhancing bowel, or portal venous gas. No interloop fluid. 4 Markedly distended urinary bladder, this could be a cause for pain. 5 Hepatic steatosis, correlate to exclude steatohepatitis. <MYCVCSECTION> Communications: 08/07/19 18:30 Call Doctor Regarding Volvulus, called MARIANNE ARIAS on 08/06 18: 30 (-07:00)
--- NOTE | 2019-08-07 19:20 | Diagnostic Imaging Report ---
EXAM: ULTRASOUND US ABD Complete CLINICAL HISTORY: Reason For Exam: ABD PAIN. COMPARISON: None TECHNIQUE: Ultrasound examination of the abdomen includes grayscale images, and color and spectral doppler analysis. FINDINGS: Study limited due to overlying bowel gas. Midline structures including the pancreas, aorta and cava are mostly obscured. The gallbladder is without sludge or stone. Common bile duct measures 5 mm. Liver is echogenic likely fatty change. Spleen is within normal limits. The kidneys are normal in size, shape and axis. IMPRESSION: FATTY LIVER. MIDLINE STRUCTURES OBSCURED BY BOWEL GAS. OTHERWISE NO SIGN OF ACUTE DISEASE.
--- NOTE | 2019-08-07 19:39 | NUR ---
HAND-OFF: Report given to ANGELA Rebollar.
--- NOTE | 2019-08-07 19:40 | NUR ---
NURSE NOTES: Patient in bed, awake and alert x4. No SOB or distress. IV intact and patent. Bed locked and in lowest position. Call light within reach. Will continue to monitor the patient.
[2019-08-07 20:00] VITALS: BP 139/58
--- NOTE | 2019-08-07 20:00 | Consultation ---
DATE OF CONSULTATION: 08/07/2019 PAIN MANAGEMENT CONSULTATION CONSULTING PHYSICIAN: Mauro Gupta M.D. REFERRING PHYSICIAN: Mariusz Hahn D.O. PHYSICIAN TROMBONE SLIDE ASSEMBLER: Vicente Du CHIEF COMPLAINT: Abdominal pain. HISTORY OF PRESENT ILLNESS: This is a 34-year-old female, who is being seen on the Med/Surg floor of [facility] for initial pain management consultation. The patient was admitted under the care of Dr. Mariusz Lopez with a diagnoses of pancreatitis and severe abdominal pain. She is describing the pain as sharp burning pain in her epigastric area, found to have elevated lipase, started on 0.5 mg IV every 6 hours as needed for pain with minimal pain relief. Due to this, we were consulted so the patient would have adequate pain control while here in the hospital. The patient was found to be also positive for cocaine and alcohol upon urine exam. PAST MEDICAL HISTORY: Pancreatitis, volvulus, rhinorrhea, and lactic acidosis. PAST SURGICAL HISTORY: Denies. MEDICATIONS: Macrobid, Zofran, and [place]. ALLERGIES: No known drug allergies. SOCIAL HISTORY: Smokes marijuana, cocaine, alcohol abuse, and denies IV drug abuse. REVIEW OF SYSTEMS: Denies rash, fever, chills, sweating, dizziness, drowsiness, blurred vision, sore throat, or change in her weight. No shortness of breath, chest pain, palpitations, or cough. No bowel or bladder incontinence. No dysuria. She is complaining of abdominal pain. PHYSICAL EXAMINATION: GENERAL: Alert, awake, and oriented. VITAL SIGNS: Blood pressure 130/105, heart rate 80, oxygen saturation 100%, respiratory rate 20, and temperature is 98.5 degrees Fahrenheit. HEENT: PERRLA. NECK: Range of motion is full in all directions. No tenderness to paracervical muscles. No adenopathy. LUNGS: Decreased breath sounds bilaterally. HEART: S1 and S2 regular. ABDOMEN: Tenderness to palpation. BACK: Range of motion is decreased in flexion and extension. EXTREMITIES: Upper and lower extremity range of motion is full in all directions. No cyanosis. No clubbing. No edema. Sensory is intact. Reflexes are not obtainable. No adenopathy. ASSESSMENT AND PLAN: This is a 34-year-old female with abdominal pain, acute pancreatitis, and substance abuse. [facility] hours as needed for severe pain. The patient was advised to cease drinking alcohol at excessive amount as well as doing illegal substances such as cocaine. She seems to understand. The patient was discussed with Dr. Gupta and Dr. Gupta concurred. We will follow the patient. Thank you very much for the courtesy of this consultation. Mauro Gupta M.D. ALAINA Du DR: STAR JOB#: [id number] CC:
--- NOTE | 2019-08-07 20:45 | History and Physical Report ---
DATE OF ADMISSION: 08/07/2019 TIME SEEN: 1 p.m. CONSULTANTS: 1. Yakov Medel MD. 2. Mauro Gupta MD. 3. Pablo June MD. CHIEF COMPLAINT: Pancreatitis, nausea, vomiting, UTI. BRIEF HISTORY: This is a 34-year-old female, who lives at home with history of chronic pancreatitis, came in with 3 days of nausea, vomiting, came to [facility], diagnosed with the above and also UTI, and admitted to medical floor. Currently, slightly anxious in bed, slight nausea. No complaint. REVIEW OF SYSTEMS: No chest pain. No shortness of breath. Slight nausea, vomiting. No diarrhea. PAST MEDICAL HISTORY: Chronic pancreatitis. PAST SURGICAL HISTORY: . MEDICATIONS: Include hydromorphone, , Zofran, Tylenol, ceftriaxone, Reglan. ALLERGIES: Denies. SOCIAL HISTORY: Positive smoking. No alcohol. No intravenous drug abuse. FAMILY HISTORY: Noncontributory. PHYSICAL EXAMINATION: GENERAL: Calm in bed, oriented x3, slight distress secondary to nausea. VITAL SIGNS: Temperature is 97, pulse 80, respirations 20, blood pressure 130/105. CARDIOVASCULAR: S1, S2. No murmur. LUNGS: Distant and clear. ABDOMEN: Bowel sounds positive. Nontender. Nondistended. EXTREMITIES: Show no cyanosis or edema. NEUROLOGIC: Patient moves all extremities, slightly weak. LABORATORY DATA: Labs at this time show hemoglobin and hematocrit 8.7/29, platelets 126. Potassium 3.4, CO2 20. Otherwise, lipase 436, came down from 1035. Urinalysis, 2+ leukocyte esterase. ASSESSMENT: 1. Pancreatitis. 2. UTI. 3. Anemia. 4. Hypertension. PLAN: 1. NPO. 2. IV fluids. 3. Pain control. 4. We will add Cardiology and Hematology eval. 5. We will continue to follow patient. Mariusz Lopez D.O. DR: DRE JOB#: [id number] CC:
--- NOTE | 2019-08-07 22:30 | Consultation ---
DATE OF CONSULTATION: 08/07/2019 CARDIOLOGY CONSULTATION CONSULTING PHYSICIAN: Quinton Jane MD. REFERRING PHYSICIAN: Mariusz Lopez DO. REASON FOR CONSULTATION: Epigastric pain and tachycardia. HISTORY OF PRESENT ILLNESS: Patient is a 34-year-old lady with history of alcohol and tobacco and cocaine use as well as history of recurrent pancreatitis as well as volvulus in December 2018 and gonorrhea, who presented to emergency room with vomiting, epigastric and abdominal pain with radiation to her back. Patient was found to have elevated lipase and laboratory results were positive for alcohol and cocaine. A Cardiology consultation was obtained for further evaluation. At the time of my evaluation, patient denies any chest pain or palpitation or shortness of breath and has had some epigastric discomfort. REVIEW OF SYSTEMS: Negative other than what was mentioned in the history of present illness. PAST MEDICAL HISTORY: As mentioned above. FAMILY HISTORY: Noncontributory. SOCIAL HISTORY: Continues to use drink alcohol and use cocaine. PHYSICAL EXAMINATION: VITAL SIGNS: Blood pressure 130/105, pulse is 80, respirations 20, temperature 97.5. HEAD AND NECK: Showed no JVD. LUNGS: Clear. CARDIOVASCULAR: Shows regular S1 and S2 with no gallop. ABDOMEN: Soft epigastric. EXTREMITIES: No pitting edema. LABORATORY AND DIAGNOSTIC DATA: Labs show white count of 5.3, hemoglobin 8.7, hematocrit 29.1, and platelet count is 126. Sodium is 132, potassium 3.4, BUN of 3, creatinine 0.7, glucose of 85. Lipase is 1035. ASSESSMENT AND PLAN: 1. Epigastric pain, likely due to acute pancreatitis with lipase of more than 1000. Patient will be ruled out for myocardial infarction unlikely. 2. Tachycardia due to pancreatitis. 3. Acute pancreatitis. Patient is on Dilaudid and IV fluids. We will also get an echocardiogram for further evaluation. Thank you very much for allowing me to participate in the care of this patient. Please do not hesitate to contact me for any questions regarding my evaluation. Quinton Jane M.D. DR: BG JOB#: [id number] CC:
[2019-08-08] VITALS: BP 122/56
[2019-08-08 00:39] LABS: APPEARANCE,URINE CLEAR; BILIRUBIN, URINE NEGATIVE (NEGATIVE); COLOR,URINE PALE YELLOW; GLUCOSE, URINE (UA) NEGATIVE (NEGATIVE); KETONES,URINE NEGATIVE (NEGATIVE); LEUKOCYTE ESTERASE ,URINE NEGATIVE (NEGATIVE); NITRITE,URINE NEGATIVE (NEGATIVE); PH,URINE 7 (4.5-8.0); PROTEIN,URINE NEGATIVE (NEGATIVE); UROBILINOGEN,URINE NORMAL MG/DL (0.0-1.0)
[2019-08-08] MEDS: HYDROmorphone 1mg/ml Carpuject IVP PRN ×3 (02:09→14:14)
[2019-08-08] MEDS ORDERED: cefTRIAXone 1 GM in D5W 55 ML IVPB SCH (03:00)
[2019-08-08 04:00] VITALS: BP 119/90
[2019-08-08 05:51] LABS: EOSINOPHILS % (AUTO) 3.3 % (0.0-3.0); HEMATOCRIT 32.8 % (37.0-47.0); HEMOGLOBIN 9.5 G/DL (12.0-16.0); LYMPHOCYTES % (AUTO) 39.8 % (20.0-45.0); MEAN CORPUSCULAR VOLUME 80 FL (80-99); NEUTROPHILS % (AUTO) 46.9 % (45.0-75.0); PLATELET COUNT 129 K/UL (150-450); RED CELL DISTRIBUTION WIDTH 19.5 % (11.6-14.8); WHITE BLOOD COUNT 4.3 K/UL (4.8-10.8)
[2019-08-08 07:09] LABS: ALANINE AMINOTRANSFERASE 22 U/L (12-78); ALBUMIN 3.2 G/DL (3.4-5.0); ALBUMIN/GLOBULIN RATIO 0.7 (1.0-2.7); ALKALINE PHOSPHATASE 95 U/L (46-116); AMYLASE 57 U/L (25-115); ANION GAP 11 mmol/L (5-15); ASPARTATE AMINO TRANSFERASE 44 U/L (15-37); BILIRUBIN,TOTAL 0.3 MG/DL (0.2-1.0); BLOOD UREA NITROGEN 3 mg/dL (7-18); CALCIUM 8.7 MG/DL (8.5-10.1); CARBON DIOXIDE 24 MMOL/L (21-32); CHLORIDE 99 MMOL/L (98-107); CREATININE 0.7 MG/DL (0.55-1.30); POTASSIUM 4.3 MMOL/L (3.5-5.1); SODIUM 133 MMOL/L (136-145)
--- NOTE | 2019-08-08 07:39 | NUR ---
NURSE NOTES: Received report from ANGELA Rebollar. Patient A&Ox4. On room air, no signs of distress or labored breathing. IV intact, patent, and infusing IV fluids. Complaining of pain, will follow pain management orders. Bed in lowest position with call light in reach. Will continue with plan of care.
[2019-08-08 08:00] VITALS: BP 118/79
--- NOTE | 2019-08-08 10:25 | NUR ---
PT EVALUATION NOTE Patient seen for initial evaluation. Patient demonstrates independent/supervised level with all functional mobility, no assistive device. Skilled inpatient PT intervention not indicated, patient discharged from PT. Patient is cleared to ambulate with nursing supervision, Patricia MILLER notified. Anticipate discharge home once medically cleared by MD. No DME needs identified. Addendum: 08/08/19 at 1129 by KEMAL HARRINGTON PT Amended: Links added.
--- NOTE | 2019-08-08 10:41 | General Progress Note ---
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 - Congenital malformations of intestinal fixation SNOMED: 99701878 Status: unchanged Assessment/Plan: gi and sx f/u abx cbc bmp in am Subjective Constitutional: Reports: weakness Allergies: Coded Allergies: No Known Allergies (Unverified , 06/16/18) All Systems: reviewed and negative except above Subjective sleepy in bed Objective Last 24 Hour Vital Signs Date Time Temp Pulse Resp B/P (MAP) Pulse Ox O2 Delivery O2 Flow Rate FiO2 08/08/19 09:00 Room Air 08/08/19 08:00 97.9 71 20 118/79 (92) 98 08/08/19 04:00 97.3 87 18 119/90 (100) 97 08/08/19 00:00 97.3 82 18 122/56 (78) 99 08/07/19 20:38 Room Air 08/07/19 20:00 97.8 75 18 139/58 (85) 100 08/07/19 16:00 97.6 85 20 142/89 (106) 100 08/07/19 15:19 97.5 08/07/19 12:00 97.5 80 20 130/105 (113) 100 Intake and Output 08/07/19 08/08/19 19:00 07:00 Intake Total 720 ml Output Total 600 ml Balance 120 ml IV Total 720 ml Output Urine Total 600 ml # Voids 3 3 Laboratory Tests 08/08/19 00:30: Urine Color Pale yellow, Urine Appearance Clear, Urine pH 7, Urine Specific [place] 1.005, Urine Protein Negative, Urine Glucose (UA) Negative, Urine Ketones Negative, Urine Blood Negative, Urine Nitrite Negative, Urine Bilirubin Negative, Urine Urobilinogen Normal, Urine Leukocyte Esterase Negative, Urine RBC 0, Urine WBC 0, Urine Squamous Epithelial Cells None, Urine Bacteria None 08/08/19 05:10: White Blood Count 4.3L, Red Blood Count 4.10L, Hemoglobin 9.5L, Hematocrit 32.8L , Mean Corpuscular Volume 80, Mean Corpuscular Hemoglobin 23.2L, Mean Corpuscular Hemoglobin Concent 29.0L, Red Cell Distribution Width 19.5H, Platelet Count 129L, Mean Platelet Volume 7.0, Neutrophils (%) (Auto) 46.9, Lymphocytes (%) (Auto) 39.8, Monocytes (%) (Auto) 8.0, Eosinophils (%) (Auto) 3.3H, Basophils (%) (Auto) 2.0, Sodium Level 133L, Potassium Level 4.3, Chloride Level 99, Carbon Dioxide Level 24, Anion Gap 11, Blood Urea Nitrogen 3L , Creatinine 0.7, Estimat Glomerular Filtration Rate > 60, Glucose Level 102, Calcium Level 8.7, Total Bilirubin 0.3, Aspartate Amino Transf (AST/SGOT) 44H, Alanine Aminotransferase (ALT/SGPT) 22, Alkaline Phosphatase 95, Troponin I 0.000, Total Protein 7.7, Albumin 3.2L, Globulin 4.5, Albumin/Globulin Ratio 0.7L, Amylase Level 57, Lipase 219, Thyroid Stimulating Hormone (TSH) 1.574, Rapid Plasma Reagin [Pending], Hepatitis A IgM Antibody [Pending], Hepatitis B Surface Antigen [Pending], Hepatitis B Core IgM Antibody [Pending], Hepatitis C Antibody [Pending], HIV (1&2) Antibody Rapid Negative Height (Feet): 5 Height (Inches): 1.00 Weight (Pounds): 135 General Appearance: lethargic EENT: normal ENT inspection Neck: normal alignment Cardiovascular: normal peripheral pulses, normal rate, regular rhythm Respiratory/Chest: chest wall non-tender, lungs clear, normal breath sounds Abdomen: normal bowel sounds, non tender, soft Extremities: normal inspection Edema: no edema noted Arm (L), no edema noted Arm (R), no edema noted Leg (L), no edema noted Leg (R), no edema noted Pedal (L), no edema noted Pedal (R), no edema noted Generalized Neurologic: motor weakness Skin: normal pigmentation, warm/dry Mariusz Lopez DO Aug 08, 2019 10:41
--- NOTE | 2019-08-08 10:44 | NUR ---
CASE MANAGEMENT:REVIEW SI;ACUTE PANCREATITIS. UTI. ANEMIA. 97.3 87 20 139/58 97% ON RA NA 133 AST 44 IS;ROCEPHIN IV Q24 DILAUDID IV A6 PRN IVF D5W @ 60 ML/HR MED SURG STATUS DCP;PATIENT IS FROM HOME
--- NOTE | 2019-08-08 11:16 | General Progress Note ---
Assessment/Plan Assessment/Plan: (1) Abdominal pain (2) Acute Pancreatitis (3) Substance abuse Patient to be continued on Dilaudid as needed. D/w Dr. Gupta and he concurred. Subjective Date patient seen: Aug 08, 2019 Time patient seen: 11:00 - am Allergies: Coded Allergies: No Known Allergies (Unverified , 06/16/18) Subjective REVIEW OF SYSTEMS: Denies rash, fever, chills, sweating, dizziness, drowsiness, blurred vision, sore throat, or change in her weight. No shortness of breath, chest pain, palpitations, or cough. No bowel or bladder incontinence. No dysuria. SUBJECTIVE: Patient is in bed and reports that the pain has been reducing and is at a moderate level using 4 doses of Dilaudid in the last 24hrs. D/w patient that due to illegal substance we would not be able to prescribe opioids for discharge she seems to understand Objective Last 24 Hour Vital Signs Date Time Temp Pulse Resp B/P (MAP) Pulse Ox O2 Delivery O2 Flow Rate FiO2 08/08/19 09:00 Room Air 08/08/19 08:00 97.9 71 20 118/79 (92) 98 08/08/19 04:00 97.3 87 18 119/90 (100) 97 08/08/19 00:00 97.3 82 18 122/56 (78) 99 08/07/19 20:38 Room Air 08/07/19 20:00 97.8 75 18 139/58 (85) 100 08/07/19 16:00 97.6 85 20 142/89 (106) 100 08/07/19 15:19 97.5 08/07/19 12:00 97.5 80 20 130/105 (113) 100 Intake and Output 08/07/19 08/08/19 19:00 07:00 Intake Total 720 ml Output Total 600 ml Balance 120 ml IV Total 720 ml Output Urine Total 600 ml # Voids 3 3 Laboratory Tests 08/08/19 00:30: Urine Color Pale yellow, Urine Appearance Clear, Urine pH 7, Urine Specific [place] 1.005, Urine Protein Negative, Urine Glucose (UA) Negative, Urine Ketones Negative, Urine Blood Negative, Urine Nitrite Negative, Urine Bilirubin Negative, Urine Urobilinogen Normal, Urine Leukocyte Esterase Negative, Urine RBC 0, Urine WBC 0, Urine Squamous Epithelial Cells None, Urine Bacteria None 08/08/19 05:10: White Blood Count 4.3L, Red Blood Count 4.10L, Hemoglobin 9.5L, Hematocrit 32.8L , Mean Corpuscular Volume 80, Mean Corpuscular Hemoglobin 23.2L, Mean Corpuscular Hemoglobin Concent 29.0L, Red Cell Distribution Width 19.5H, Platelet Count 129L, Mean Platelet Volume 7.0, Neutrophils (%) (Auto) 46.9, Lymphocytes (%) (Auto) 39.8, Monocytes (%) (Auto) 8.0, Eosinophils (%) (Auto) 3.3H, Basophils (%) (Auto) 2.0, Sodium Level 133L, Potassium Level 4.3, Chloride Level 99, Carbon Dioxide Level 24, Anion Gap 11, Blood Urea Nitrogen 3L , Creatinine 0.7, Estimat Glomerular Filtration Rate > 60, Glucose Level 102, Calcium Level 8.7, Total Bilirubin 0.3, Aspartate Amino Transf (AST/SGOT) 44H, Alanine Aminotransferase (ALT/SGPT) 22, Alkaline Phosphatase 95, Troponin I 0.000, Total Protein 7.7, Albumin 3.2L, Globulin 4.5, Albumin/Globulin Ratio 0.7L, Amylase Level 57, Lipase 219, Thyroid Stimulating Hormone (TSH) 1.574, Rapid Plasma Reagin [Pending], Hepatitis A IgM Antibody [Pending], Hepatitis B Surface Antigen [Pending], Hepatitis B Core IgM Antibody [Pending], Hepatitis C Antibody [Pending], HIV (1&2) Antibody Rapid Negative Height (Feet): 5 Height (Inches): 1.00 Weight (Pounds): 135 Objective GENERAL: Alert, awake, and oriented. LUNGS: Decreased breath sounds bilaterally. HEART: S1 and S2 regular. ABDOMEN: Tenderness to palpation. EXTREMITIES: No cyanosis. No clubbing. No edema. NEURO: No changes Odell Rowe Aug 08, 2019 11:16
--- NOTE | 2019-08-08 11:47 | General Progress Note ---
Assessment/Plan Problem List: (1) Anemia ICD Codes: D64.9 - Anemia, unspecified SNOMED: 978760409 (2) UTI (urinary tract infection) ICD Codes: N39.0 - Urinary tract infection, site not specified SNOMED: 20562875 Qualifiers: Qualified Codes: N30.00 - Acute cystitis without hematuria (3) Substance abuse ICD Codes: F19.10 - Other psychoactive substance abuse, uncomplicated SNOMED: 47460845 (4) Acute pancreatitis ICD Codes: K85.90 - Acute pancreatitis without necrosis or infection, unspecified SNOMED: 150420233 Qualifiers: Qualified Codes: K85.20 - Alcohol induced acute pancreatitis without necrosis or infection (5) Abdominal pain ICD Codes: R10.9 - Unspecified abdominal pain SNOMED: 96513797 Assessment/Plan: npo per surg pending abd x ray repeat labs in am pain control ivf start clears if ok with surg Subjective ROS Limited/Unobtainable: Yes Allergies: Coded Allergies: No Known Allergies (Unverified , 06/16/18) Objective Last 24 Hour Vital Signs Date Time Temp Pulse Resp B/P (MAP) Pulse Ox O2 Delivery O2 Flow Rate FiO2 08/08/19 09:00 Room Air 08/08/19 08:00 97.9 71 20 118/79 (92) 98 08/08/19 04:00 97.3 87 18 119/90 (100) 97 08/08/19 00:00 97.3 82 18 122/56 (78) 99 08/07/19 20:38 Room Air 08/07/19 20:00 97.8 75 18 139/58 (85) 100 08/07/19 16:00 97.6 85 20 142/89 (106) 100 08/07/19 15:19 97.5 08/07/19 12:00 97.5 80 20 130/105 (113) 100 Intake and Output 08/07/19 08/08/19 19:00 07:00 Intake Total 720 ml Output Total 600 ml Balance 120 ml IV Total 720 ml Output Urine Total 600 ml # Voids 3 3 Laboratory Tests 08/08/19 00:30: Urine Color Pale yellow, Urine Appearance Clear, Urine pH 7, Urine Specific [place] 1.005, Urine Protein Negative, Urine Glucose (UA) Negative, Urine Ketones Negative, Urine Blood Negative, Urine Nitrite Negative, Urine Bilirubin Negative, Urine Urobilinogen Normal, Urine Leukocyte Esterase Negative, Urine RBC 0, Urine WBC 0, Urine Squamous Epithelial Cells None, Urine Bacteria None 08/08/19 05:10: White Blood Count 4.3L, Red Blood Count 4.10L, Hemoglobin 9.5L, Hematocrit 32.8L , Mean Corpuscular Volume 80, Mean Corpuscular Hemoglobin 23.2L, Mean Corpuscular Hemoglobin Concent 29.0L, Red Cell Distribution Width 19.5H, Platelet Count 129L, Mean Platelet Volume 7.0, Neutrophils (%) (Auto) 46.9, Lymphocytes (%) (Auto) 39.8, Monocytes (%) (Auto) 8.0, Eosinophils (%) (Auto) 3.3H, Basophils (%) (Auto) 2.0, Sodium Level 133L, Potassium Level 4.3, Chloride Level 99, Carbon Dioxide Level 24, Anion Gap 11, Blood Urea Nitrogen 3L , Creatinine 0.7, Estimat Glomerular Filtration Rate > 60, Glucose Level 102, Calcium Level 8.7, Total Bilirubin 0.3, Aspartate Amino Transf (AST/SGOT) 44H, Alanine Aminotransferase (ALT/SGPT) 22, Alkaline Phosphatase 95, Troponin I 0.000, Total Protein 7.7, Albumin 3.2L, Globulin 4.5, Albumin/Globulin Ratio 0.7L, Amylase Level 57, Lipase 219, Thyroid Stimulating Hormone (TSH) 1.574, Rapid Plasma Reagin [Pending], Hepatitis A IgM Antibody [Pending], Hepatitis B Surface Antigen [Pending], Hepatitis B Core IgM Antibody [Pending], Hepatitis C Antibody [Pending], HIV (1&2) Antibody Rapid Negative Height (Feet): 5 Height (Inches): 1.00 Weight (Pounds): 135 General Appearance: alert EENT: normal ENT inspection Neck: supple Cardiovascular: normal rate Respiratory/Chest: decreased breath sounds Abdomen: hypoactive bowel sounds, tender Extremities: non-tender Yakov Medel MD Aug 08, 2019 11:47
--- NOTE | 2019-08-08 11:57 | NUR ---
NURSE NOTES: PATIENT OFF THE UNIT FOR ABDOMINAL XRAY.
--- NOTE | 2019-08-08 12:10 | NUR ---
NURSE NOTES: PATIENT IS BACK ON THE UNIT.
--- NOTE | 2019-08-08 12:21 | NUR ---
RADIOLOGY DEPT., ABDOMEN X-RAYS PERFORMED.-P.DYE
--- NOTE | 2019-08-08 12:43 | Cardiac Electrophysiology PN ---
Assessment/Plan Assessment/Plan 1. Epigastric pain, likely due to acute pancreatitis with lipase of more than 1000. Ruled out for myocardial infarction Echo Nl Ef 2. Tachycardia due to pancreatitis. 3. Acute pancreatitis. Patient is on Dilaudid and IV fluids. CASTRO BAIRES RN Subjective Subjective Feeling better. Echo today showed Nl EF. Objective Last 24 Hour Vital Signs Date Time Temp Pulse Resp B/P (MAP) Pulse Ox O2 Delivery O2 Flow Rate FiO2 08/08/19 09:00 Room Air 08/08/19 08:00 97.9 71 20 118/79 (92) 98 08/08/19 04:00 97.3 87 18 119/90 (100) 97 08/08/19 00:00 97.3 82 18 122/56 (78) 99 08/07/19 20:38 Room Air 08/07/19 20:00 97.8 75 18 139/58 (85) 100 08/07/19 16:00 97.6 85 20 142/89 (106) 100 08/07/19 15:19 97.5 Intake and Output 08/07/19 08/08/19 19:00 07:00 Intake Total 720 ml 60 ml Output Total 600 ml Balance 120 ml 60 ml IV Total 720 ml 60 ml Output Urine Total 600 ml # Voids 3 3 Laboratory Tests Test 08/08/19 00:30 08/08/19 05:10 Urine Color Pale yellow Urine Appearance Clear Urine pH 7 (4.5-8.0) Urine Specific [place] 1.005 (1.005-1.035) Urine Protein Negative (NEGATIVE) Urine Glucose (UA) Negative (NEGATIVE) Urine Ketones Negative (NEGATIVE) Urine Blood Negative (NEGATIVE) Urine Nitrite Negative (NEGATIVE) Urine Bilirubin Negative (NEGATIVE) Urine Urobilinogen Normal MG/DL (0.0-1.0) Urine Leukocyte Esterase Negative (NEGATIVE) Urine RBC 0 /HPF (0 - 2) Urine WBC 0 /HPF (0 - 2) Urine Squamous Epithelial Cells None /LPF (NONE/OCC) Urine Bacteria None /HPF (NONE) White Blood Count 4.3 K/UL (4.8-10.8) L Red Blood Count 4.10 M/UL (4.20-5.40) L Hemoglobin 9.5 G/DL (12.0-16.0) L Hematocrit 32.8 % (37.0-47.0) L Mean Corpuscular Volume 80 FL (80-99) Mean Corpuscular Hemoglobin 23.2 PG (27.0-31.0) L Mean Corpuscular Hemoglobin Concent 29.0 G/DL (32.0-36.0) L Red Cell Distribution Width 19.5 % (11.6-14.8) H Platelet Count 129 K/UL (150-450) L Mean Platelet Volume 7.0 FL (6.5-10.1) Neutrophils (%) (Auto) 46.9 % (45.0-75.0) Lymphocytes (%) (Auto) 39.8 % (20.0-45.0) Monocytes (%) (Auto) 8.0 % (1.0-10.0) Eosinophils (%) (Auto) 3.3 % (0.0-3.0) H Basophils (%) (Auto) 2.0 % (0.0-2.0) Sodium Level 133 MMOL/L (136-145) L Potassium Level 4.3 MMOL/L (3.5-5.1) Chloride Level 99 MMOL/L (98-107) Carbon Dioxide Level 24 MMOL/L (21-32) Anion Gap 11 mmol/L (5-15) Blood Urea Nitrogen 3 mg/dL (7-18) L Creatinine 0.7 MG/DL (0.55-1.30) Estimat Glomerular Filtration Rate > 60 mL/min (>60) Glucose Level 102 MG/DL (74-106) Calcium Level 8.7 MG/DL (8.5-10.1) Total Bilirubin 0.3 MG/DL (0.2-1.0) Aspartate Amino Transf (AST/SGOT) 44 U/L (15-37) H Alanine Aminotransferase (ALT/SGPT) 22 U/L (12-78) Alkaline Phosphatase 95 U/L (46-116) Troponin I 0.000 ng/mL (0.000-0.056) Total Protein 7.7 G/DL (6.4-8.2) Albumin 3.2 G/DL (3.4-5.0) L Globulin 4.5 g/dL Albumin/Globulin Ratio 0.7 (1.0-2.7) L Amylase Level 57 U/L (25-115) Lipase 219 U/L (73-393) Thyroid Stimulating Hormone (TSH) 1.574 uiU/mL (0.358-3.740) Rapid Plasma Reagin Pending Hepatitis A IgM Antibody Pending Hepatitis B Surface Antigen Pending Hepatitis B Core IgM Antibody Pending Hepatitis C Antibody Pending HIV (1&2) Antibody Rapid Negative (NEGATIVE) Microbiology Date/Time Source Procedure Growth Status 08/07/19 01:01 Urine,Clean Catch Urine Culture - Preliminary Resulted Objective HEAD AND NECK: no JVD. LUNGS: Clear. CARDIOVASCULAR: regular S1 and S2 with no gallop. ABDOMEN: Soft EXTREMITIES: No pitting edema. Quinton Jane MD Aug 08, 2019 12:43
--- NOTE | 2019-08-08 12:57 | NUR ---
*-* INSURANCE *-* ALL AVAILABLE CLINICALS AND REVIEWS HAVE BEEN FAXED TO: Ref#[id number]* ph#[phone] fax#[phone] Addendum: 08/08/19 at 1444 by JAQUELINE CESAR CM disregard this note documented wrong patient
--- NOTE | 2019-08-08 13:59 | Consultation ---
History of Present Illness General Chief Complaint: Abdominal Pain Present Illness Allergies: Coded Allergies: No Known Allergies (Unverified , 06/16/18) Medication History Scheduled Nitrofurantoin Monohyd/M-Cryst* (Macrobid 100 Mg*), 100 MG ORAL EVERY 12 HOURS Ondansetron Odt* (Zofran Odt*), 4 MG BC EVERY 8 HOURS Scheduled PRN Hydrocodone Bit/Acetaminophen 5-325* ([place] 5-325 Tablet*), 1 TAB ORAL Q6H PRN for FOR PAIN Patient History Healthcare decision maker Resuscitation status Advanced Directive on File Physical Exam Last 24 Hour Vital Signs Date Time Temp Pulse Resp B/P (MAP) Pulse Ox O2 Delivery O2 Flow Rate FiO2 08/08/19 09:00 Room Air 08/08/19 08:00 97.9 71 20 118/79 (92) 98 08/08/19 04:00 97.3 87 18 119/90 (100) 97 08/08/19 00:00 97.3 82 18 122/56 (78) 99 08/07/19 20:38 Room Air 08/07/19 20:00 97.8 75 18 139/58 (85) 100 08/07/19 16:00 97.6 85 20 142/89 (106) 100 08/07/19 15:19 97.5 Intake and Output 08/07/19 08/08/19 19:00 07:00 Intake Total 720 ml 60 ml Output Total 600 ml Balance 120 ml 60 ml IV Total 720 ml 60 ml Output Urine Total 600 ml # Voids 3 3 Laboratory Tests Test 08/08/19 00:30 08/08/19 05:10 Urine Color Pale yellow Urine Appearance Clear Urine pH 7 (4.5-8.0) Urine Specific [place] 1.005 (1.005-1.035) Urine Protein Negative (NEGATIVE) Urine Glucose (UA) Negative (NEGATIVE) Urine Ketones Negative (NEGATIVE) Urine Blood Negative (NEGATIVE) Urine Nitrite Negative (NEGATIVE) Urine Bilirubin Negative (NEGATIVE) Urine Urobilinogen Normal MG/DL (0.0-1.0) Urine Leukocyte Esterase Negative (NEGATIVE) Urine RBC 0 /HPF (0 - 2) Urine WBC 0 /HPF (0 - 2) Urine Squamous Epithelial Cells None /LPF (NONE/OCC) Urine Bacteria None /HPF (NONE) White Blood Count 4.3 K/UL (4.8-10.8) L Red Blood Count 4.10 M/UL (4.20-5.40) L Hemoglobin 9.5 G/DL (12.0-16.0) L Hematocrit 32.8 % (37.0-47.0) L Mean Corpuscular Volume 80 FL (80-99) Mean Corpuscular Hemoglobin 23.2 PG (27.0-31.0) L Mean Corpuscular Hemoglobin Concent 29.0 G/DL (32.0-36.0) L Red Cell Distribution Width 19.5 % (11.6-14.8) H Platelet Count 129 K/UL (150-450) L Mean Platelet Volume 7.0 FL (6.5-10.1) Neutrophils (%) (Auto) 46.9 % (45.0-75.0) Lymphocytes (%) (Auto) 39.8 % (20.0-45.0) Monocytes (%) (Auto) 8.0 % (1.0-10.0) Eosinophils (%) (Auto) 3.3 % (0.0-3.0) H Basophils (%) (Auto) 2.0 % (0.0-2.0) Sodium Level 133 MMOL/L (136-145) L Potassium Level 4.3 MMOL/L (3.5-5.1) Chloride Level 99 MMOL/L (98-107) Carbon Dioxide Level 24 MMOL/L (21-32) Anion Gap 11 mmol/L (5-15) Blood Urea Nitrogen 3 mg/dL (7-18) L Creatinine 0.7 MG/DL (0.55-1.30) Estimat Glomerular Filtration Rate > 60 mL/min (>60) Glucose Level 102 MG/DL (74-106) Calcium Level 8.7 MG/DL (8.5-10.1) Total Bilirubin 0.3 MG/DL (0.2-1.0) Aspartate Amino Transf (AST/SGOT) 44 U/L (15-37) H Alanine Aminotransferase (ALT/SGPT) 22 U/L (12-78) Alkaline Phosphatase 95 U/L (46-116) Troponin I 0.000 ng/mL (0.000-0.056) Total Protein 7.7 G/DL (6.4-8.2) Albumin 3.2 G/DL (3.4-5.0) L Globulin 4.5 g/dL Albumin/Globulin Ratio 0.7 (1.0-2.7) L Amylase Level 57 U/L (25-115) Lipase 219 U/L (73-393) Thyroid Stimulating Hormone (TSH) 1.574 uiU/mL (0.358-3.740) Rapid Plasma Reagin Pending Hepatitis A IgM Antibody Pending Hepatitis B Surface Antigen Pending Hepatitis B Core IgM Antibody Pending Hepatitis C Antibody Pending HIV (1&2) Antibody Rapid Negative (NEGATIVE) Height (Feet): 5 Height (Inches): 1.00 Weight (Pounds): 135 Medications Current Medications Medications (Trade) Dose Ordered Sig/Wendie Route PRN Reason Start Time Stop Time Status Last Admin Dose Admin Barium Sulfate (Readi-Cat 2) 450 ml NOW PRN ORAL Radiology Procedure 08/07/19 16:00 08/09/19 15:50 08/07/19 16:29 Ceftriaxone Sodium 1 gm/ Dextrose 55 ml @ 110 mls/hr Q24H IVPB 08/08/19 03:00 08/15/19 02:59 08/08/19 02:07 Dextrose/Sodium Chloride 1,000 ml @ 60 mls/hr [id number] IV 08/07/19 07:00 09/06/19 06:59 08/07/19 22:23 Hydromorphone HCl (Dilaudid) 1 mg Q6H PRN IVP severe pain 08/07/19 12:51 08/14/19 12:50 08/08/19 08:14 Iohexol (OMNIPAQUE-300 100ml) 100 ml NOW PRN INJ Radiology Procedure 08/07/19 16:00 08/09/19 15:50 Ondansetron HCl (Zofran) 4 mg Q4H PRN IVP Nausea & Vomiting 08/07/19 07:00 09/06/19 06:59 Assessment/Plan Assessment/Plan: Hematology Consultation REQ MD Mariusz Lopez RFC: Pancytopenia DOS 08/08/2019 ID Patient was seen last night for vomiting abdominal pain. She was treated in the emergency department and improved. She was given a prescription for [place] but was unable to fill it because she did not have ID. Pain is continuing and worse tonight. She says she is the pain is 10/10 epigastric rating to her back just like last night. Last night she had an minimally elevated lipase. She has a history of pancreatitis. She was also positive for cocaine and alcohol. Patient was found to have a UTI last night. A dose of Rocephin was given. She was also prescribed Macrobid. No fevers, chills, sore throat, chest pain, palpitations, dysuria, shortness of breath, joint pain, rashes, depression, visual changes, dizziness, headache. Noted to be pancytopenic, ct noted and xray kub ordered as well. Past medical history Volvulus Malrotation of intestine Abdominal pain-resolved Gonorrhea Lactic acidosis -resolved Allergies: No Known Allergies (Unverified , 06/16/18) COVID-19 Screening Contact w/high risk pt: No Recent Travel to affected area: No Experienced COVID-19 symptoms?: No COVID-19 Testing performed CONFIGURATION CONSULTANT: No Patient History Past Medical History: see triage record Social History: Reports: smoking, alcohol use, Cocaine Social History Narrative Brought by boyfriend Last Menstrual Period: 07/18/19 Now: No Reviewed Nursing Documentation Nursing Documentation-PMH Hx Cardiac Problems: No Hx Hypertension: No Hx Pacemaker: No Hx Asthma: No Hx COPD: No Hx Diabetes: No Hx Cancer: No Hx Gastrointestinal Problems: Yes - pancreatitis Hx Dialysis: No Hx Neurological Problems: No Hx Cerebrovascular Accident: No Hx Seizures: No Review of Systems All Other Systems: negative except mentioned in HPI PE: Vitals: reviewed General Appearance: NAD HEENT: normocephalic, atraumatic Respiratory/Chest: normal breath sounds bilaterally Cardiovascular/Chest: normal peripheral pulses, normal rate, no mgr Abdomen: normal bowel sounds, soft, nontender Extremities: normal range of motion : no dysuria Labs noted Imaging: reviewed Assessment/Recs # Pancytopenia -- multiple etiologies could be related to underlying liver disease, medication-induced,with pancreatitis and etoh abuse recently --> peripheral smear has been ordered and does not show significant abnormalities --> Medications have been reviewed --> Continue to monitor for improvement, trend cbc --> Hep panel and HIV have been ordered --> US abd ordered to r/o cirrhosis and hepatosplenomegaly --> reverse isolation if ANC is <2000 --> Give neupogen if ANC <1000 --> Transfuse if hgb <7, with 1 unit prbc --> consider bone marrow biopsy if no other causes are found # Acute pancreatitis --> ivfs prn basis --> history of recent etoh use # Distended stomach containing feculent contents suggests partial duodenal obstruction; sm --> as per gi and surg recs # Substance abuse # UTI (urinary tract infection) # Dvt ppx scds Appreciate consultation and dw Tex Alarcon MD Aug 08, 2019 13:59
--- NOTE | 2019-08-08 14:43 | NUR ---
*-* INSURANCE *-* ALL CLINICALS AND REVIEWS HAVE BEEN FAXED: [employer] Auth# [id number] Fax Clinicals: [phone] & [employer] [employer] Fax Clinicals: [phone] (They're still processing faxes, no pending auth issued yet) Addendum: 08/08/19 at 1444 by JAQUELINE CESAR CM [facility]# [id number]
--- NOTE | 2019-08-08 14:50 | Diagnostic Imaging Report ---
EXAM: XRAY Abdomen 1v HISTORY: Reason For Exam: ABD PAIN COMPARISON: 01/04/2019. TECHNIQUE: Frontal view of the abdomen obtained. FINDINGS: There is a nonobstructed bowel gas pattern. Stool lucencies and oral contrast identified in the colon. No definite pathologic calcifications identified. Overlying artifacts cover CT pelvis. No sign of free air. IMPRESSION: NO SIGN OF ACUTE DISEASE.
--- NOTE | 2019-08-08 19:59 | Surgery Progress Note ---
Surgery Progress Note Subjective Additional Comments Pain improved. Passing flatus and bowel movement. No nausea or vomiting currently. KUB demonstrated passage of contrast into colon. Unfortunately patient has social situation at home which needs to take care of and despite recommendations needs to leave AMA and has decided to do so. Objective Last 24 Hour Vital Signs Date Time Temp Pulse Resp B/P (MAP) Pulse Ox O2 Delivery O2 Flow Rate FiO2 08/08/19 09:00 Room Air 08/08/19 08:00 97.9 71 20 118/79 (92) 98 08/08/19 04:00 97.3 87 18 119/90 (100) 97 08/08/19 00:00 97.3 82 18 122/56 (78) 99 08/07/19 20:38 Room Air 08/07/19 20:00 97.8 75 18 139/58 (85) 100 I&O Intake and Output 08/07/19 08/08/19 19:00 07:00 Intake Total 720 ml 60 ml Output Total 600 ml Balance 120 ml 60 ml IV Total 720 ml 60 ml Output Urine Total 600 ml # Voids 3 3 Dressing: other Wound: other Drains: other Cardiovascular: RSR Respiratory: decreased breath sounds Abdomen: soft, non-tender, present bowel sounds, non-distended Extremities: no edema, no tenderness, no cyanosis Laboratory Tests Test 08/08/19 00:30 08/08/19 05:10 Urine Color Pale yellow Urine Appearance Clear Urine pH 7 (4.5-8.0) Urine Specific [place] 1.005 (1.005-1.035) Urine Protein Negative (NEGATIVE) Urine Glucose (UA) Negative (NEGATIVE) Urine Ketones Negative (NEGATIVE) Urine Blood Negative (NEGATIVE) Urine Nitrite Negative (NEGATIVE) Urine Bilirubin Negative (NEGATIVE) Urine Urobilinogen Normal MG/DL (0.0-1.0) Urine Leukocyte Esterase Negative (NEGATIVE) Urine RBC 0 /HPF (0 - 2) Urine WBC 0 /HPF (0 - 2) Urine Squamous Epithelial Cells None /LPF (NONE/OCC) Urine Bacteria None /HPF (NONE) White Blood Count 4.3 K/UL (4.8-10.8) L Red Blood Count 4.10 M/UL (4.20-5.40) L Hemoglobin 9.5 G/DL (12.0-16.0) L Hematocrit 32.8 % (37.0-47.0) L Mean Corpuscular Volume 80 FL (80-99) Mean Corpuscular Hemoglobin 23.2 PG (27.0-31.0) L Mean Corpuscular Hemoglobin Concent 29.0 G/DL (32.0-36.0) L Red Cell Distribution Width 19.5 % (11.6-14.8) H Platelet Count 129 K/UL (150-450) L Mean Platelet Volume 7.0 FL (6.5-10.1) Neutrophils (%) (Auto) 46.9 % (45.0-75.0) Lymphocytes (%) (Auto) 39.8 % (20.0-45.0) Monocytes (%) (Auto) 8.0 % (1.0-10.0) Eosinophils (%) (Auto) 3.3 % (0.0-3.0) H Basophils (%) (Auto) 2.0 % (0.0-2.0) Sodium Level 133 MMOL/L (136-145) L Potassium Level 4.3 MMOL/L (3.5-5.1) Chloride Level 99 MMOL/L (98-107) Carbon Dioxide Level 24 MMOL/L (21-32) Anion Gap 11 mmol/L (5-15) Blood Urea Nitrogen 3 mg/dL (7-18) L Creatinine 0.7 MG/DL (0.55-1.30) Estimat Glomerular Filtration Rate > 60 mL/min (>60) Glucose Level 102 MG/DL (74-106) Calcium Level 8.7 MG/DL (8.5-10.1) Total Bilirubin 0.3 MG/DL (0.2-1.0) Aspartate Amino Transf (AST/SGOT) 44 U/L (15-37) H Alanine Aminotransferase (ALT/SGPT) 22 U/L (12-78) Alkaline Phosphatase 95 U/L (46-116) Troponin I 0.000 ng/mL (0.000-0.056) Total Protein 7.7 G/DL (6.4-8.2) Albumin 3.2 G/DL (3.4-5.0) L Globulin 4.5 g/dL Albumin/Globulin Ratio 0.7 (1.0-2.7) L Amylase Level 57 U/L (25-115) Lipase 219 U/L (73-393) Thyroid Stimulating Hormone (TSH) 1.574 uiU/mL (0.358-3.740) Rapid Plasma Reagin Pending Hepatitis A IgM Antibody Pending Hepatitis B Surface Antigen Pending Hepatitis B Core IgM Antibody Pending Hepatitis C Antibody Pending HIV (1&2) Antibody Rapid Negative (NEGATIVE) Plan Problems: (1) Acute pancreatitis Assessment & Plan: 34-year-old female acute pancreatitis known history of gallbladder sludge and EtOH use. Denies recent significant EtOH use states only had a glass of wine approximately a week ago. Nausea vomiting associated with the pain. Pain rating to the back currently 10 out of 10. Cramping pain epigastric tender on examination. Given patient's history and known history of malrotation with history of volvulus will obtain a stat CT abdomen pelvis to ensure this is pancreatitis and not a potential manifestation of a another volvulus or concerning bowel pathology given her underlying congenital abnormality. We will follow with recommendations imaging available Case discussed with medical teams thank you for let me participate in patient's care will follow with recommendations CT noted KUB today with passage of contrast fortunately unfortunately patient has to leave AMA and use she has personal think she needs a care of regards to her child's father and custody Despite medical recommendations patient has decided to leave AGAINST MEDICAL ADVICE Time note does not affect when patient was seen (2) Substance abuse (3) UTI (urinary tract infection) (4) Anemia (5) Abdominal pain (6) Pancreatitis Joe Bedoya Aug 08, 2019 19:59
--- NOTE | 2019-08-10 12:32 | Discharge Summary ---
Discharge Summary Discharge Summary _ DATE OF ADMISSION: 08/07/2019 DATE OF DISCHARGE: 08/08/2019 CONSULTANTS: Dr. Joe Gayle [facility] HOSPITAL COURSE: Patient is a 34-year-old female, who lives at home, with history of chronic pancreatitis, presented to ED due to 3 days of nausea and vomiting. She initially presented to ED on 08/05/2019 due to abdominal pain. At that time, she had minimally elevated lipase. She was also positive for cocaine and alcohol. She was found to have UTI and was given a dose of Rocephin. She was prescribed Macrobid. She was discharged home and was given a prescription however patient stated she was unable to fill the prescription. Her pain continued got worse. She then presented back to ED. Upon evaluation, blood work did not show any leukocytosis however lipase was elevated to 1035. Urinalysis showed 30-40 urine WBC, 0-2 urine RBC, 2+ leukocyte esterase. She was given IV hydration. She was given Dilaudid for pain management. She was then admitted for acute pancreatitis. She was admitted to medical floor. She was given ceftriaxone empirically for urine infection. STD screening done. She was initially started on clear liquid diet. She was given pain management. She was initially tachycardic however denies any chest pain or palpitations. No shortness of breath. Echocardiogram revealed normal ejection fraction. Patient was ruled out for NH. Surgical evaluation was done. On examination, she had tenderness on the epigastric area. Patient has a known history of malrotation with history of volvulus. CT scan of the abdomen showed unchanged malrotation and midgut volvulus. Distended stomach containing feculent contents suggestive of partial duodenal obstruction. No pneumatosis. Markedly distended urinary bladder. No specific findings to suggest imaging criteria for pancreatitis. Pancreas intimately associated with the duodenal second segment, which may have some mass-effect due to volvulus of the midgut; no pancreatic duct dilatation, peripancreatic stranding or pancreatic enhancement abnormality seen. Pain improved. Patient was passing flatus and was having bowel movements. KUB demonstrated passage of contrast into the colon. Full treatment was not carried out as patient had personal issues and had to leave A. FINAL DIAGNOSES: Acute pancreatitis Urinary tract infection Anemia Substance abuse Tachycardia due to pancreatitis DISPOSITION: Patient left AGAINST MEDICAL ADVICE. I have been assigned to complete a discharge summary on this account, I was not involved with the patient's management.--EVANGELISTA Soto Jacqueline Robles NP Aug 10, 2019 12:32
--- NOTE | 2019-08-11 12:50 | NUR ---
*-* INSURANCE *-* DISCHARGE SUMMARY HAS BEEN FAXED: [facility] Auth# [id number] Fax Clinicals: [phone] & [facility] Auth# [id number] Fax Clinicals: [phone] (They're still processing faxes, no pending auth issued yet)
== END 2019-08-08 16:20 | disposition left against medical advice (07) | DRG 282 ==
LOC: EMR 00:50 → 4E 03:30 → EDBEDREQ 03:40
DX: K85.90 Acute pancreatitis without necrosis or infection, unspecified (principal); N39.0 Urinary tract infection, site not specified; F19.10 Other psychoactive substance abuse, uncomplicated; F10.10 Alcohol abuse, uncomplicated; D64.9 Anemia, unspecified; I10 Essential (primary) hypertension; F14.10 Cocaine abuse, uncomplicated; R00.0 Tachycardia, unspecified; Q43.3 Congenital malformations of intestinal fixation
CPT/HCPCS: 36415; 74018; 74177; 76700; 80048; 80053; 81001; 81003; 82150; 83690; 84443; 84484; 85025; 86592; 86703; 86705; 86709; 86803; 87086; 87340; 87491; 87590; 93005; 93306; 96361; 96365; 96375; 96376; 99285; J2765; J7030

== ENCOUNTER 2019-09-05 07:31 | Inpatient (IN) | payer MEDICAID ==
[~2019-09-05] VITALS: Ht 154.9 cm; Wt 65.8 kg
[2019-09-05 07:39] VITALS: BP 150/100
[2019-09-05 07:58] LABS: APPEARANCE,URINE CLEAR; BILIRUBIN, URINE NEGATIVE (NEGATIVE); GLUCOSE, URINE (UA) NEGATIVE (NEGATIVE); KETONES,URINE NEGATIVE (NEGATIVE); LEUKOCYTE ESTERASE ,URINE 1+ (NEGATIVE); NITRITE,URINE NEGATIVE (NEGATIVE); PH,URINE 8 (4.5-8.0); PROTEIN,URINE NEGATIVE (NEGATIVE); UROBILINOGEN,URINE 4 MG/DL (0.0-1.0)
[2019-09-05] MEDS ORDERED: Morphine Sulfate 4mg/ml Inj (IV USE ONLY) IVP ONE ×3 (08:00→09:00)
[2019-09-05 08:02] LABS: COLOR,URINE YELLOW
--- NOTE | 2019-09-05 08:02 | Emergency Room Report ---
History of Present Illness General Chief Complaint: Abdominal Pain Source: Patient Present Illness HPI Disclaimer: Please note that this report is being documented using Practice Management e-[employer] technology. This can lead to erroneous entry secondary to incorrect interpretation by the dictating instrument. HPI: 34-year-old female history of pancreatitis, alcohol abuse, volvulus presents for epigastric abdominal pain. She states it started this morning. She admits to drinking alcohol last night. No nausea or vomiting. Denies fevers or cough or shortness of breath. No urinary complaints. Pain is currently 9 out of 10. She does not have any pain medication at home during this time. PMH: Chronic pancreatitis, chronic volvulus PSH: Reviewed Social Hx: Patient smokes cigarettes, smokes marijuana, drinks alcohol. Allergies: Coded Allergies: No Known Allergies (Unverified , 06/16/18) COVID-19 Screening Contact w/high risk pt: No Recent Travel to affected area: No Experienced COVID-19 symptoms?: No COVID-19 Testing performed MEDICAL DOCTOR MD/MEDICAL DIRECTOR: Yes - 07/05 COVID-19 Screening: Negative COVID-19 COVID-19 Testing Source: MEDICINE ASSISTANT Patient History Now: No Reviewed Nursing Documentation: PMH: Agreed; PSxH: Agreed Nursing Documentation-PMH Hx Cardiac Problems: No Hx Hypertension: No Hx Pacemaker: No Hx Asthma: No Hx COPD: No Hx Diabetes: No Hx Cancer: No Hx Gastrointestinal Problems: Yes - pancreatitis Hx Dialysis: No Hx Neurological Problems: No Hx Cerebrovascular Accident: No Hx Seizures: No Review of Systems All Other Systems: negative except mentioned in HPI Physical Exam Vital Signs Date Time Temp Pulse Resp B/P (MAP) Pulse Ox O2 Delivery O2 Flow Rate FiO2 09/05/19 07:35 98.8 94 18 150/100 (117) 99 Room Air Sp02 EP Interpretation: reviewed, normal General Appearance: well appearing, no apparent distress Head: normocephalic, atraumatic Eyes: bilateral eye PERRL, bilateral eye EOMI ENT: hearing grossly normal, moist mucus membranes Neck: full range of motion, supple Respiratory: lungs clear, normal breath sounds, no rhonchi, no respiratory distress, no retraction, no wheezing Cardiovascular #1: normal peripheral pulses, regular rate, rhythm, no murmur Gastrointestinal: soft, non-distended, no guarding, tenderness - Epigastric tenderness noted, abdomen nondistended Neurologic: alert, oriented x3, no focal defects Skin: normal color, warm/dry Medical Decision Making Diagnostic Impression: Primary Impression: Pancreatitis ER Course MDM: Parental diagnosis included but not limited to acute on chronic pancreatitis, alcohol abuse, gastritis, polysubstance abuse name a few Clinical course-patient's lipase elevated on laboratory studies. She required multiple doses of analgesics in the ER. I had a long talk with the patient about her alcohol use and she did understand that her alcohol use is causing her pancreatitis. Patient will be admitted the medical floor for hydration and pain control. Labs - Laboratory Tests Test 09/05/19 07:42 09/05/19 07:49 Urine Color Yellow Urine Appearance Clear Urine pH 8 (4.5-8.0) Urine Specific [place] 1.010 (1.005-1.035) Urine Protein Negative (NEGATIVE) Urine Glucose (UA) Negative (NEGATIVE) Urine Ketones Negative (NEGATIVE) Urine Blood Negative (NEGATIVE) Urine Nitrite Negative (NEGATIVE) Urine Bilirubin Negative (NEGATIVE) Urine Urobilinogen 4 MG/DL (0.0-1.0) H Urine Leukocyte Esterase 1+ (NEGATIVE) H Urine RBC 0 /HPF (0 - 2) Urine WBC 2-4 /HPF (0 - 2) Urine Squamous Epithelial Cells Few /LPF (NONE/OCC) Urine Bacteria Few /HPF (NONE) Urine HCG, Qualitative Negative (NEGATIVE) Urine Opiates Screen Negative (NEGATIVE) Urine Barbiturates Screen Negative (NEGATIVE) Phencyclidine (PCP) Screen Negative (NEGATIVE) Urine Amphetamines Screen Negative (NEGATIVE) Urine Benzodiazepines Screen Negative (NEGATIVE) Urine Cocaine Screen Negative (NEGATIVE) Urine Marijuana (THC) Screen Positive (NEGATIVE) H White Blood Count 4.9 K/UL (4.8-10.8) Red Blood Count 4.19 M/UL (4.20-5.40) L Hemoglobin 9.8 G/DL (12.0-16.0) L Hematocrit 32.4 % (37.0-47.0) L Mean Corpuscular Volume 77 FL (80-99) L Mean Corpuscular Hemoglobin 23.4 PG (27.0-31.0) L Mean Corpuscular Hemoglobin Concent 30.3 G/DL (32.0-36.0) L Red Cell Distribution Width 20.4 % (11.6-14.8) H Platelet Count 179 K/UL (150-450) Mean Platelet Volume 6.4 FL (6.5-10.1) L Neutrophils (%) (Auto) 49.7 % (45.0-75.0) Lymphocytes (%) (Auto) 38.7 % (20.0-45.0) Monocytes (%) (Auto) 8.4 % (1.0-10.0) Eosinophils (%) (Auto) 0.8 % (0.0-3.0) Basophils (%) (Auto) 2.5 % (0.0-2.0) H Sodium Level 137 MMOL/L (136-145) Potassium Level 3.4 MMOL/L (3.5-5.1) L Chloride Level 100 MMOL/L (98-107) Carbon Dioxide Level 21 MMOL/L (21-32) Anion Gap 16 mmol/L (5-15) H Blood Urea Nitrogen 3 mg/dL (7-18) L Creatinine 0.8 MG/DL (0.55-1.30) Estimated Glomerular Filtration Rate > 60 mL/min (>60) Glucose Level 97 MG/DL (74-106) Calcium Level 9.0 MG/DL (8.5-10.1) Total Bilirubin 0.8 MG/DL (0.2-1.0) Aspartate Amino Transferase (AST) 62 U/L (15-37) H Alanine Aminotransferase (ALT) 41 U/L (12-78) Alkaline Phosphatase 103 U/L (46-116) Total Protein 8.3 G/DL (6.4-8.2) H Albumin 3.7 G/DL (3.4-5.0) Globulin 4.6 g/dL Albumin/Globulin Ratio 0.8 (1.0-2.7) L Amylase Level 118 U/L (25-115) H Lipase 949 U/L (73-393) H Serum Alcohol 84 mg/dL On reevaluation: Pain improved Plan-plan for admission to the medical floor Last Vital Signs Date Time Temp Pulse Resp B/P (MAP) Pulse Ox O2 Delivery O2 Flow Rate FiO2 09/05/19 07:35 98.8 94 18 150/100 (117) 99 Room Air Status: improved Disposition: ADMITTED INPATIENT Condition: Serious Scripts No Active Prescriptions or Reported Meds Lalo Sorensen M.D. Sep 05, 2019 08:01
[2019-09-05 08:06] LABS: BASOPHILS % (AUTO) 2.5 % (0.0-2.0); EOSINOPHILS % (AUTO) 0.8 % (0.0-3.0); HEMATOCRIT 32.4 % (37.0-47.0); HEMOGLOBIN 9.8 G/DL (12.0-16.0); LYMPHOCYTES % (AUTO) 38.7 % (20.0-45.0); MEAN CORPUSCULAR VOLUME 77 FL (80-99); MONOCYTES % (AUTO) 8.4 % (1.0-10.0); NEUTROPHILS % (AUTO) 49.7 % (45.0-75.0); PLATELET COUNT 179 K/UL (150-450); RED BLOOD COUNT 4.19 M/UL (4.20-5.40); RED CELL DISTRIBUTION WIDTH 20.4 % (11.6-14.8); WHITE BLOOD COUNT 4.9 K/UL (4.8-10.8)
[2019-09-05 08:08] LABS: ANION GAP 16 mmol/L (5-15); BLOOD UREA NITROGEN 3 mg/dL (7-18); CARBON DIOXIDE 21 MMOL/L (21-32); CHLORIDE 100 MMOL/L (98-107); CREATININE 0.8 MG/DL (0.55-1.30); POTASSIUM 3.4 MMOL/L (3.5-5.1); SODIUM 137 MMOL/L (136-145)
[2019-09-05 08:13] LABS: ALANINE AMINOTRANSFERASE 41 U/L (12-78); ALBUMIN 3.7 G/DL (3.4-5.0); ALBUMIN/GLOBULIN RATIO 0.8 (1.0-2.7); ALKALINE PHOSPHATASE 103 U/L (46-116); AMYLASE 118 U/L (25-115); ASPARTATE AMINO TRANSFERASE 62 U/L (15-37); BILIRUBIN,TOTAL 0.8 MG/DL (0.2-1.0)
[2019-09-05 09:44] VITALS: BP 152/98
[2019-09-05] MEDS ORDERED: HYDROmorphone 1mg/ml Carpuject IVP ONE (09:45)
[2019-09-05] MEDS ORDERED: DiphenhydrAMINE 50mg/ml Inj IVP ONE (10:30)
[2019-09-05 10:47] VITALS: BP 132/74
[2019-09-05] MEDS: D5NS 1,000 ML IV SCH ×2 (12:30→22:18)
[2019-09-05] MEDS: HYDROmorphone 1mg/ml Carpuject IVP PRN ×3 (12:37→23:59)
--- NOTE | 2019-09-05 13:31 | General Progress Note ---
Assessment/Plan Problem List: (1) Pancreatitis ICD Codes: K85.90 - Acute pancreatitis without necrosis or infection, unspecified SNOMED: 31185243 (2) Congenital malrotation of intestine ICD Codes: Q43.3 - Congenital malformations of intestinal fixation SNOMED: 55615115 (3) UTI (urinary tract infection) ICD Codes: N39.0 - Urinary tract infection, site not specified SNOMED: 27191416 (4) Substance abuse ICD Codes: F19.10 - Other psychoactive substance abuse, uncomplicated SNOMED: 65269399 (5) Abdominal pain ICD Codes: R10.9 - Unspecified abdominal pain SNOMED: 24140205 (6) Anemia ICD Codes: D64.9 - Anemia, unspecified SNOMED: 273545043 Assessment/Plan: npo ivf pain control fu labs avoid THC Subjective Allergies: Coded Allergies: No Known Allergies (Unverified , 06/16/18) Objective Last 24 Hour Vital Signs Date Time Temp Pulse Resp B/P (MAP) Pulse Ox O2 Delivery O2 Flow Rate FiO2 09/05/19 11:20 98.8 81 19 134/76 100 Room Air 09/05/19 10:47 98.8 77 19 132/74 98 Room Air 09/05/19 10:13 98.8 09/05/19 09:44 98.8 84 22 152/98 99 Room Air 09/05/19 09:29 98.8 09/05/19 09:02 98.8 09/05/19 08:34 98.8 09/05/19 07:39 94 18 Room Air 09/05/19 07:39 98.8 94 18 150/100 99 Room Air 09/05/19 07:35 98.8 94 18 150/100 (117) 99 Room Air Laboratory Tests 09/05/19 07:42: Urine Color Yellow, Urine Appearance Clear, Urine pH 8, Urine Specific [place] 1.010, Urine Protein Negative, Urine Glucose (UA) Negative, Urine Ketones Negative, Urine Blood Negative, Urine Nitrite Negative, Urine Bilirubin Negative , Urine Urobilinogen 4H, Urine Leukocyte Esterase 1+H, Urine RBC 0, Urine WBC 2- 4, Urine Squamous Epithelial Cells Few, Urine Bacteria Few, Urine HCG, Qualitative Negative, Urine Opiates Screen Negative, Urine Barbiturates Screen Negative, Phencyclidine (PCP) Screen Negative, Urine Amphetamines Screen Negative, Urine Benzodiazepines Screen Negative, Urine Cocaine Screen Negative, Urine Marijuana (THC) Screen PositiveH 09/05/19 07:49: White Blood Count 4.9, Red Blood Count 4.19L, Hemoglobin 9.8L, Hematocrit 32.4L , Mean Corpuscular Volume 77L, Mean Corpuscular Hemoglobin 23.4L, Mean Corpuscular Hemoglobin Concent 30.3L, Red Cell Distribution Width 20.4H, Platelet Count 179, Mean Platelet Volume 6.4L, Neutrophils (%) (Auto) 49.7, Lymphocytes (%) (Auto) 38.7, Monocytes (%) (Auto) 8.4, Eosinophils (%) (Auto) 0.8, Basophils (%) (Auto) 2.5H, Sodium Level 137, Potassium Level 3.4L, Chloride Level 100, Carbon Dioxide Level 21, Anion Gap 16H, Blood Urea Nitrogen 3L, Creatinine 0.8, Estimat Glomerular Filtration Rate > 60, Glucose Level 97, Calcium Level 9.0, Total Bilirubin 0.8, Aspartate Amino Transf (AST/SGOT) 62H, Alanine Aminotransferase (ALT/SGPT) 41, Alkaline Phosphatase 103, Total Protein 8.3H, Albumin 3.7, Globulin 4.6, Albumin/Globulin Ratio 0.8L, Amylase Level 118H , Lipase 949H, Serum Alcohol 84 Height (Feet): 5 Height (Inches): 1.00 Weight (Pounds): 145 General Appearance: alert EENT: normal ENT inspection Neck: supple Cardiovascular: normal rate Respiratory/Chest: decreased breath sounds Abdomen: hypoactive bowel sounds, tender Extremities: non-tender Yakov Medel MD Sep 05, 2019 13:31
[2019-09-05] MEDS: Docusate 100mg cap ORAL SCH (17:58)
[2019-09-05 20:00] VITALS: BP 118/68
[2019-09-05] MEDS: Miralax 17gm pkt ORAL SCH (20:23)
[2019-09-05] MEDS: Ketorolac 30mg Inj IV PRN (22:17)
[2019-09-06 04:00] VITALS: BP 135/81
[2019-09-06] MEDS: HYDROmorphone 1mg/ml Carpuject IVP PRN ×4 (05:59→23:34)
[2019-09-06 06:55] LABS: BASOPHILS % (AUTO) 1.2 % (0.0-2.0); EOSINOPHILS % (AUTO) 1.6 % (0.0-3.0); LYMPHOCYTES % (AUTO) 33.7 % (20.0-45.0); MEAN CORPUSCULAR VOLUME 80 FL (80-99); MONOCYTES % (AUTO) 5.6 % (1.0-10.0); NEUTROPHILS % (AUTO) 57.8 % (45.0-75.0); PLATELET COUNT 141 K/UL (150-450); RED BLOOD COUNT 3.89 M/UL (4.20-5.40); RED CELL DISTRIBUTION WIDTH 20.6 % (11.6-14.8); WHITE BLOOD COUNT 4.3 K/UL (4.8-10.8)
[2019-09-06 07:25] LABS: ALANINE AMINOTRANSFERASE 48 U/L (12-78); ALBUMIN 3.5 G/DL (3.4-5.0); ALBUMIN/GLOBULIN RATIO 0.9 (1.0-2.7); ALKALINE PHOSPHATASE 140 U/L (46-116); AMYLASE 93 U/L (25-115); ANION GAP 8 mmol/L (5-15); ASPARTATE AMINO TRANSFERASE 114 U/L (15-37); BLOOD UREA NITROGEN 4 mg/dL (7-18); CALCIUM 8.8 MG/DL (8.5-10.1); CARBON DIOXIDE 25 MMOL/L (21-32); CHLORIDE 98 MMOL/L (98-107); CHOLESTEROL 216 MG/DL (< 200); CREATININE 0.8 MG/DL (0.55-1.30); HDL CHOLESTEROL 87 MG/DL (40-60); POTASSIUM 3.8 MMOL/L (3.5-5.1); SODIUM 131 MMOL/L (136-145); TRIGLYCERIDES 146 MG/DL (30-150)
[2019-09-06 08:00] VITALS: BP 120/78
[2019-09-06] MEDS: Docusate 100mg cap ORAL SCH ×2 (08:06→17:35)
[2019-09-06] MEDS: Pantoprazole Inj IVP SCH (08:07)
[2019-09-06] MEDS: D5NS 1,000 ML IV SCH ×2 (08:07→17:35)
--- NOTE | 2019-09-06 08:12 | General Progress Note ---
Assessment/Plan Problem List: (1) Pancreatitis ICD Codes: K85.90 - Acute pancreatitis without necrosis or infection, unspecified SNOMED: 59748257 (2) Congenital malrotation of intestine ICD Codes: Q43.3 - Congenital malformations of intestinal fixation SNOMED: 88282196 (3) UTI (urinary tract infection) ICD Codes: N39.0 - Urinary tract infection, site not specified SNOMED: 04664794 (4) Substance abuse ICD Codes: F19.10 - Other psychoactive substance abuse, uncomplicated SNOMED: 65551076 (5) Abdominal pain ICD Codes: R10.9 - Unspecified abdominal pain SNOMED: 06594900 (6) Anemia ICD Codes: D64.9 - Anemia, unspecified SNOMED: 861675517 Assessment/Plan: ivf pain control fu labs avoid THC start clears Subjective Allergies: Coded Allergies: No Known Allergies (Unverified , 06/16/18) Objective Last 24 Hour Vital Signs Date Time Temp Pulse Resp B/P (MAP) Pulse Ox O2 Delivery O2 Flow Rate FiO2 09/06/19 04:00 97.2 68 18 135/81 (99) 93 09/05/19 21:00 Room Air 09/05/19 20:00 97.2 76 20 118/68 (85) 99 09/05/19 16:01 Room Air 09/05/19 11:20 98.8 81 19 134/76 100 Room Air 09/05/19 10:47 98.8 77 19 132/74 98 Room Air 09/05/19 10:13 98.8 09/05/19 09:44 98.8 84 22 152/98 99 Room Air 09/05/19 09:29 98.8 09/05/19 09:02 98.8 09/05/19 08:34 98.8 Intake and Output 09/05/19 09/06/19 19:00 07:00 Intake Total 2700 ml 1460 ml Balance 2700 ml 1460 ml Intake IV Total 2700 ml 1100 ml Other 360 ml # Voids 1 2 Laboratory Tests 09/06/19 05:30: White Blood Count 4.3L, Red Blood Count 3.89L, Hemoglobin 9.0L, Hematocrit 31.0L , Mean Corpuscular Volume 80, Mean Corpuscular Hemoglobin 23.1L, Mean Corpuscular Hemoglobin Concent 29.0L, Red Cell Distribution Width 20.6H, Platelet Count 141L, Mean Platelet Volume 6.8, Neutrophils (%) (Auto) 57.8, Lymphocytes (%) (Auto) 33.7, Monocytes (%) (Auto) 5.6, Eosinophils (%) (Auto) 1.6, Basophils (%) (Auto) 1.2, Sodium Level 131L, Potassium Level 3.8, Chloride Level 98, Carbon Dioxide Level 25, Anion Gap 8, Blood Urea Nitrogen 4L, Creatinine 0.8, Estimat Glomerular Filtration Rate > 60, Glucose Level 80, Calcium Level 8.8, Total Bilirubin 1.0, Aspartate Amino Transf (AST/SGOT) 114H, Alanine Aminotransferase (ALT/SGPT) 48, Alkaline Phosphatase 140H, Total Protein 7.6, Albumin 3.5, Globulin 4.1, Albumin/Globulin Ratio 0.9L, Triglycerides Level 146, Cholesterol Level 216H, LDL Cholesterol 93, HDL Cholesterol 87H, Cholesterol/HDL Ratio 2.5L, Amylase Level 93, Lipase 840H Height (Feet): 5 Height (Inches): 1.00 Weight (Pounds): 145 General Appearance: no apparent distress EENT: normal ENT inspection Neck: supple Cardiovascular: normal rate Respiratory/Chest: decreased breath sounds Abdomen: normal bowel sounds, non tender, soft Extremities: non-tender Yakov Medel MD Sep 06, 2019 08:12
[2019-09-06] MEDS: Ketorolac 30mg Inj IV PRN ×2 (08:43→14:50)
--- NOTE | 2019-09-06 08:50 | History & Physical ---
History and Physical History & Physicial seen and examined. Full dictation completed Radha Lopez MD Sep 06, 2019 08:50
--- NOTE | 2019-09-06 08:51 | General Progress Note ---
Assessment/Plan Assessment/Plan: Full dictation in progress A/P: 1- Acute alcoholic pancreatitis Plan: Check anemia pending GI eval pain mgt Subjective Allergies: Coded Allergies: No Known Allergies (Unverified , 06/16/18) Objective Last 24 Hour Vital Signs Date Time Temp Pulse Resp B/P (MAP) Pulse Ox O2 Delivery O2 Flow Rate FiO2 09/06/19 04:00 97.2 68 18 135/81 (99) 93 09/05/19 21:00 Room Air 09/05/19 20:00 97.2 76 20 118/68 (85) 99 09/05/19 16:01 Room Air 09/05/19 11:20 98.8 81 19 134/76 100 Room Air 09/05/19 10:47 98.8 77 19 132/74 98 Room Air 09/05/19 10:13 98.8 09/05/19 09:44 98.8 84 22 152/98 99 Room Air 09/05/19 09:29 98.8 09/05/19 09:02 98.8 Intake and Output 09/05/19 09/06/19 19:00 07:00 Intake Total 2700 ml 1460 ml Balance 2700 ml 1460 ml Intake IV Total 2700 ml 1100 ml Other 360 ml # Voids 1 2 Laboratory Tests 09/06/19 05:30: White Blood Count 4.3L, Red Blood Count 3.89L, Hemoglobin 9.0L, Hematocrit 31.0L , Mean Corpuscular Volume 80, Mean Corpuscular Hemoglobin 23.1L, Mean Corpuscular Hemoglobin Concent 29.0L, Red Cell Distribution Width 20.6H, Platelet Count 141L, Mean Platelet Volume 6.8, Neutrophils (%) (Auto) 57.8, Lymphocytes (%) (Auto) 33.7, Monocytes (%) (Auto) 5.6, Eosinophils (%) (Auto) 1.6, Basophils (%) (Auto) 1.2, Sodium Level 131L, Potassium Level 3.8, Chloride Level 98, Carbon Dioxide Level 25, Anion Gap 8, Blood Urea Nitrogen 4L, Creatinine 0.8, Estimat Glomerular Filtration Rate > 60, Glucose Level 80, Calcium Level 8.8, Total Bilirubin 1.0, Aspartate Amino Transf (AST/SGOT) 114H, Alanine Aminotransferase (ALT/SGPT) 48, Alkaline Phosphatase 140H, Total Protein 7.6, Albumin 3.5, Globulin 4.1, Albumin/Globulin Ratio 0.9L, Triglycerides Level 146, Cholesterol Level 216H, LDL Cholesterol 93, HDL Cholesterol 87H, Cholesterol/HDL Ratio 2.5L, Amylase Level 93, Lipase 840H Height (Feet): 5 Height (Inches): 1.00 Weight (Pounds): 145 Radha Lopez MD Sep 06, 2019 08:51
[2019-09-06 09:25] LABS: % IRON SATURATION 10 % (15-50); IRON 47 ug/dL (50-175); TOTAL IRON BINDING CAPACITY 467 ug/dL (250-450)
--- NOTE | 2019-09-06 09:51 | Diagnostic Imaging Report ---
EXAM: US Abdomen Complete CLINICAL HISTORY: PAIN TECHNIQUE: Real-time ultrasound of the abdomen with image documentation. COMPARISON: CT performed 08/07/19 FINDINGS: Liver: There is moderate fatty infiltration of the liver which is normal in size. No focal liver lesions are identified. The main portal vein appears patent. No intrahepatic bile duct dilation. Gallbladder: Unremarkable. No gallstones. Common bile duct: Bile duct is normal in caliber measuring 3 mm. No stones. No dilation. Pancreas: Unremarkable as visualized. Kidneys: Unremarkable. No stones. No solid mass. No hydronephrosis. Spleen: Unremarkable. No splenomegaly. Aorta: Unremarkable. No aneurysm. Inferior vena cava: Unremarkable. IMPRESSION: Moderate fatty infiltration of the liver, otherwise unremarkable abdominal ultrasound
--- NOTE | 2019-09-06 10:00 | History and Physical Report ---
DATE OF ADMISSION: 09/05/2019 SOURCE OF INFORMATION: The patient and EMR. HISTORY OF PRESENT ILLNESS: The patient is a 34-year-old female with history of alcoholism who presented with worsening of the abdominal pain after episodes after drinking. At the time of evaluation, the patient is complaining of pain in the upper abdominal area. Positive for nausea. Denies any abnormal bleeding. Denies any diarrhea or constipation. PAST MEDICAL AND SURGICAL HISTORY: Including alcoholism and pancreatitis. CURRENT HOSPITAL MEDICATIONS: Including Protonix, Dilaudid, Benadryl. ALLERGIES: NKDA. SOCIAL HISTORY: The patient gives prior history of tobacco use. Reportedly has significantly cut on the alcoholism and the alcohol drink and currently takes only 2 or 3 shots a day, reported that she is homeless. FAMILY HISTORY: Noncontributory. PHYSICAL EXAMINATION: VITAL SIGNS: Blood pressure 130/80, temperature 98.2, pulse oximetry 98% on room air, respiratory rate 18. HEAD AND NECK: Atraumatic and normocephalic. CHEST: Clear to auscultation. HEART: S1 and S2. Regular rate and rhythm. ABDOMEN: Soft. Positive for tenderness on deep palpation. NEUROLOGIC: The patient is awake and alert. MUSCULOSKELETAL: No gross focal motor deficit. LABORATORY DATA: Dated 09/05/2019 shows hemoglobin of 9.8, platelet of 179. Sodium 137, creatinine 0.8. Amylase 118, lipase of 949. ASSESSMENT AND PLAN: 1. Acute alcoholic pancreatitis. 2. Hypokalemia. 3. Anemia. 4. GI and DVT prophylaxis. PLAN OF CARE: We will keep the patient NPO. Continue with maintenance IV fluids. Pain management and optimization of pain medications in progress. COMMENT: The time of this dictation does not reflect the actual time of encounter. Radha Lopez M.D. DR: Kendall JOB#: [id number] CC:
[2019-09-06 12:00] VITALS: BP 110/73
[2019-09-06 16:00] VITALS: BP 124/83
[2019-09-06 20:00] VITALS: BP 124/81
[2019-09-06] MEDS: Miralax 17gm pkt ORAL SCH ×3 (21:00→23:55)
[2019-09-07] VITALS: BP 150/86
[2019-09-07] MEDS: Ketorolac 30mg Inj IV PRN ×2 (02:34→09:41)
[2019-09-07] MEDS: DiphenhydrAMINE 50mg/ml Inj IVP PRN ×2 (02:43→17:50)
[2019-09-07 04:00] VITALS: BP 120/77
[2019-09-07] MEDS: HYDROmorphone 1mg/ml Carpuject IVP PRN ×3 (05:37→19:09)
[2019-09-07] MEDS: D5NS 1,000 ML IV SCH ×3 (05:52→16:56)
[2019-09-07 06:43] LABS: EOSINOPHILS % (AUTO) 2.5 % (0.0-3.0); HEMOGLOBIN 8.5 G/DL (12.0-16.0); LYMPHOCYTES % (AUTO) 24.7 % (20.0-45.0); MEAN CORPUSCULAR VOLUME 79 FL (80-99); MONOCYTES % (AUTO) 6.5 % (1.0-10.0); NEUTROPHILS % (AUTO) 65.3 % (45.0-75.0); PLATELET COUNT 126 K/UL (150-450); RED BLOOD COUNT 3.65 M/UL (4.20-5.40); WHITE BLOOD COUNT 4.7 K/UL (4.8-10.8)
[2019-09-07 07:12] LABS: ALANINE AMINOTRANSFERASE 32 U/L (12-78); ALBUMIN 3.1 G/DL (3.4-5.0); ALBUMIN/GLOBULIN RATIO 0.8 (1.0-2.7); ALKALINE PHOSPHATASE 107 U/L (46-116); AMYLASE 59 U/L (25-115); ANION GAP 9 mmol/L (5-15); ASPARTATE AMINO TRANSFERASE 60 U/L (15-37); BILIRUBIN,TOTAL 0.5 MG/DL (0.2-1.0); BLOOD UREA NITROGEN 3 mg/dL (7-18); CALCIUM 8.3 MG/DL (8.5-10.1); CARBON DIOXIDE 25 MMOL/L (21-32); CHLORIDE 104 MMOL/L (98-107); CREATININE 0.8 MG/DL (0.55-1.30); POTASSIUM 3.6 MMOL/L (3.5-5.1); SODIUM 137 MMOL/L (136-145)
--- NOTE | 2019-09-07 07:44 | General Progress Note ---
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 - Congenital malformations of intestinal fixation SNOMED: 87682902 (3) UTI (urinary tract infection) ICD Codes: N39.0 - Urinary tract infection, site not specified SNOMED: 52501443 (4) Substance abuse ICD Codes: F19.10 - Other psychoactive substance abuse, uncomplicated SNOMED: 85802738 (5) Abdominal pain ICD Codes: R10.9 - Unspecified abdominal pain SNOMED: 64511473 (6) Anemia ICD Codes: D64.9 - Anemia, unspecified SNOMED: 511071489 Assessment/Plan: ivf pain control fu labs avoid THC advance diet iv iron fu labs Subjective Allergies: Coded Allergies: No Known Allergies (Unverified , 06/16/18) Objective Last 24 Hour Vital Signs Date Time Temp Pulse Resp B/P (MAP) Pulse Ox O2 Delivery O2 Flow Rate FiO2 09/07/19 06:07 98.7 09/07/19 04:00 97.9 75 18 120/77 (91) 99 09/07/19 03:04 98.7 09/07/19 00:00 98.1 90 20 150/86 (107) 99 09/06/19 21:00 Room Air 09/06/19 20:00 98.7 85 18 124/81 (95) 99 09/06/19 16:00 97.7 70 20 124/83 (97) 100 09/06/19 12:00 98.2 79 18 110/73 (85) 95 09/06/19 09:00 Room Air 09/06/19 08:00 97.7 71 20 120/78 (92) 99 Intake and Output 09/06/19 09/07/19 19:00 07:00 Intake Total 720 ml Balance 720 ml Intake Oral 720 ml # Voids 1 1 Laboratory Tests 09/07/19 05:20: White Blood Count 4.7L, Red Blood Count 3.65L, Hemoglobin 8.5L, Hematocrit 29.0L , Mean Corpuscular Volume 79L, Mean Corpuscular Hemoglobin 23.3L, Mean Corpuscular Hemoglobin Concent 29.4L, Red Cell Distribution Width 21.0H, Platelet Count 126L, Mean Platelet Volume 6.4L, Neutrophils (%) (Auto) 65.3, Lymphocytes (%) (Auto) 24.7, Monocytes (%) (Auto) 6.5, Eosinophils (%) (Auto) 2.5, Basophils (%) (Auto) 1.0, Sodium Level 137, Potassium Level 3.6, Chloride Level 104, Carbon Dioxide Level 25, Anion Gap 9, Blood Urea Nitrogen 3L, Creatinine 0.8, Estimat Glomerular Filtration Rate > 60, Glucose Level 107H, Calcium Level 8.3L, Total Bilirubin 0.5, Aspartate Amino Transf (AST/SGOT) 60H, Alanine Aminotransferase (ALT/SGPT) 32, Alkaline Phosphatase 107, Total Protein 6.9, Albumin 3.1L, Globulin 3.8, Albumin/Globulin Ratio 0.8L, Amylase Level 59, Lipase 415H Height (Feet): 5 Height (Inches): 1.00 Weight (Pounds): 145 General Appearance: alert EENT: normal ENT inspection Neck: supple Cardiovascular: normal rate Respiratory/Chest: decreased breath sounds Abdomen: hypoactive bowel sounds, tender Extremities: non-tender Yakov Medel MD Sep 07, 2019 07:43
[2019-09-07 08:00] VITALS: BP 138/95
[2019-09-07] MEDS: Docusate 100mg cap ORAL SCH ×2 (08:04→18:04)
[2019-09-07] MEDS: Pantoprazole Inj IVP SCH (08:05)
--- NOTE | 2019-09-07 09:18 | General Progress Note ---
Assessment/Plan Assessment/Plan: S: I am ok O: shows narcotic seeking behavior. PHYSICAL EXAMINATION:HEAD AND NECK: Atraumatic and normocephalic. CHEST: Clear to auscultation.HEART: S1 and S2. Regular rate and rhythm. ABDOMEN: Soft. Positive for tenderness on deep palpation. NEUROLOGIC: The patient is awake and alert. MUSCULOSKELETAL: No gross focal motor deficit. LABORATORY DATA: Dated 09/06/2019 reviewed ASSESSMENT AND PLAN: 1. Acute alcoholic pancreatitis. 2. Hypokalemia. 3. Anemia. 4. GI and DVT prophylaxis. PLAN OF CARE: advance diet once tolerated may fu as op Subjective Allergies: Coded Allergies: No Known Allergies (Unverified , 06/16/18) Objective Last 24 Hour Vital Signs Date Time Temp Pulse Resp B/P (MAP) Pulse Ox O2 Delivery O2 Flow Rate FiO2 09/07/19 06:07 98.7 09/07/19 04:00 97.9 75 18 120/77 (91) 99 09/07/19 03:04 98.7 09/07/19 00:00 98.1 90 20 150/86 (107) 99 09/06/19 21:00 Room Air 09/06/19 20:00 98.7 85 18 124/81 (95) 99 09/06/19 16:00 97.7 70 20 124/83 (97) 100 09/06/19 12:00 98.2 79 18 110/73 (85) 95 Intake and Output 09/06/19 09/07/19 19:00 07:00 Intake Total 720 ml Balance 720 ml Intake Oral 720 ml # Voids 1 1 Laboratory Tests 09/07/19 05:20: White Blood Count 4.7L, Red Blood Count 3.65L, Hemoglobin 8.5L, Hematocrit 29.0L , Mean Corpuscular Volume 79L, Mean Corpuscular Hemoglobin 23.3L, Mean Corpuscular Hemoglobin Concent 29.4L, Red Cell Distribution Width 21.0H, Platelet Count 126L, Mean Platelet Volume 6.4L, Neutrophils (%) (Auto) 65.3, Lymphocytes (%) (Auto) 24.7, Monocytes (%) (Auto) 6.5, Eosinophils (%) (Auto) 2.5, Basophils (%) (Auto) 1.0, Sodium Level 137, Potassium Level 3.6, Chloride Level 104, Carbon Dioxide Level 25, Anion Gap 9, Blood Urea Nitrogen 3L, Creatinine 0.8, Estimat Glomerular Filtration Rate > 60, Glucose Level 107H, Calcium Level 8.3L, Total Bilirubin 0.5, Aspartate Amino Transf (AST/SGOT) 60H, Alanine Aminotransferase (ALT/SGPT) 32, Alkaline Phosphatase 107, Total Protein 6.9, Albumin 3.1L, Globulin 3.8, Albumin/Globulin Ratio 0.8L, Amylase Level 59, Lipase 415H Height (Feet): 5 Height (Inches): 1.00 Weight (Pounds): 145 Radha Lopez MD Sep 07, 2019 09:18
[2019-09-07 12:00] VITALS: BP 118/81
[2019-09-07] MEDS ORDERED: Tetanus/Diptheria/Pertussis IM ONE (13:00)
--- NOTE | 2019-09-07 15:08 | Consultation ---
History of Present Illness General Date patient seen: Sep 07, 2019 Time patient seen: 02:30 - pm Chief Complaint: Abdominal Pain Present Illness HPI SUBJECTIVE: Patient is in bed and is a known patient from previous admission readmitted for acute pancreatitis. Pain has been tolerated on the Dilaudid 1mg IV Q6H PRN. Seen by GI. No new complaints at this time. Allergies: Coded Allergies: No Known Allergies (Unverified , 06/16/18) Medication History No Active Prescriptions or Reported Meds Patient History Healthcare decision maker Resuscitation status Advanced Directive on File Review of Systems ROS Narrative REVIEW OF SYSTEMS: Denies rash, fever, chills, sweating, dizziness, drowsiness, blurred vision, sore throat, or change in her weight. No shortness of breath, chest pain, palpitations, or cough. No bowel or bladder incontinence. No dysuria. Physical Exam Physical Exam Narrative GENERAL: Alert, awake, and oriented. LUNGS: Decreased breath sounds bilaterally. HEART: S1 and S2 regular. ABDOMEN: Tenderness to palpation. EXTREMITIES: No cyanosis. No clubbing. No edema. NEURO: No Focal Defect. Last 24 Hour Vital Signs Date Time Temp Pulse Resp B/P (MAP) Pulse Ox O2 Delivery O2 Flow Rate FiO2 09/07/19 12:00 97.4 72 18 118/81 (93) 100 09/07/19 09:00 Room Air 09/07/19 08:00 97.0 74 18 138/95 (109) 100 09/07/19 06:07 98.7 09/07/19 04:00 97.9 75 18 120/77 (91) 99 09/07/19 03:04 98.7 09/07/19 00:00 98.1 90 20 150/86 (107) 99 09/06/19 21:00 Room Air 09/06/19 20:00 98.7 85 18 124/81 (95) 99 09/06/19 16:00 97.7 70 20 124/83 (97) 100 Intake and Output 09/06/19 09/07/19 19:00 07:00 Intake Total 720 ml Balance 720 ml Intake Oral 720 ml # Voids 1 1 Laboratory Tests Test 09/07/19 05:20 White Blood Count 4.7 K/UL (4.8-10.8) L Red Blood Count 3.65 M/UL (4.20-5.40) L Hemoglobin 8.5 G/DL (12.0-16.0) L Hematocrit 29.0 % (37.0-47.0) L Mean Corpuscular Volume 79 FL (80-99) L Mean Corpuscular Hemoglobin 23.3 PG (27.0-31.0) L Mean Corpuscular Hemoglobin Concent 29.4 G/DL (32.0-36.0) L Red Cell Distribution Width 21.0 % (11.6-14.8) H Platelet Count 126 K/UL (150-450) L Mean Platelet Volume 6.4 FL (6.5-10.1) L Neutrophils (%) (Auto) 65.3 % (45.0-75.0) Lymphocytes (%) (Auto) 24.7 % (20.0-45.0) Monocytes (%) (Auto) 6.5 % (1.0-10.0) Eosinophils (%) (Auto) 2.5 % (0.0-3.0) Basophils (%) (Auto) 1.0 % (0.0-2.0) Sodium Level 137 MMOL/L (136-145) Potassium Level 3.6 MMOL/L (3.5-5.1) Chloride Level 104 MMOL/L (98-107) Carbon Dioxide Level 25 MMOL/L (21-32) Anion Gap 9 mmol/L (5-15) Blood Urea Nitrogen 3 mg/dL (7-18) L Creatinine 0.8 MG/DL (0.55-1.30) Estimat Glomerular Filtration Rate > 60 mL/min (>60) Glucose Level 107 MG/DL (74-106) H Calcium Level 8.3 MG/DL (8.5-10.1) L Total Bilirubin 0.5 MG/DL (0.2-1.0) Aspartate Amino Transf (AST/SGOT) 60 U/L (15-37) H Alanine Aminotransferase (ALT/SGPT) 32 U/L (12-78) Alkaline Phosphatase 107 U/L (46-116) Total Protein 6.9 G/DL (6.4-8.2) Albumin 3.1 G/DL (3.4-5.0) L Globulin 3.8 g/dL Albumin/Globulin Ratio 0.8 (1.0-2.7) L Amylase Level 59 U/L (25-115) Lipase 415 U/L (73-393) H Height (Feet): 5 Height (Inches): 1.00 Weight (Pounds): 145 Medications Current Medications Medications (Trade) Dose Ordered Sig/Wendie Route PRN Reason Start Time Stop Time Status Last Admin Dose Admin Dextrose/Sodium Chloride 1,000 ml @ 100 mls/hr Q10H IV 09/05/19 12:30 10/05/19 12:29 09/07/19 05:52 Diphenhydramine HCl (Benadryl) 25 mg Q6H PRN IVP Itching 09/05/19 12:30 10/05/19 12:29 09/07/19 02:43 Docusate Sodium (Colace) 100 mg TWICE A DAY ORAL 09/05/19 18:00 10/05/19 17:59 09/07/19 08:04 Hydromorphone HCl (Dilaudid) 1 mg Q6H PRN IVP For Pain 09/05/19 12:30 09/12/19 12:29 09/07/19 13:22 Iron Sucrose 100 mg/Sodium Chloride 60 ml @ 240 mls/hr BEDTIME IV 09/07/19 21:00 09/11/19 21:14 Ketorolac Tromethamine (Toradol 30mg) 30 mg BIDPRN PRN IV Moderate Breakthru Pain (5-7) 09/05/19 18:30 09/10/19 18:29 09/07/19 09:41 Ondansetron HCl (Zofran) 4 mg Q6H PRN IVP Nausea & Vomiting 09/05/19 12:30 10/05/19 12:29 Pantoprazole (Protonix) 40 mg DAILY IVP 09/06/19 09:00 10/06/19 08:59 09/07/19 08:05 Polyethylene Glycol (Miralax) 17 gm BEDTIME ORAL 09/05/19 21:00 10/05/19 20:59 09/06/19 23:55 Assessment/Plan Assessment/Plan: (1) Abdominal pain (2) Acute Pancreatitis (3) Substance abuse Patient to be continued on Dilaudid as needed. D/w Dr. Gupta and he concurred. Odell Rowe Sep 07, 2019 15:08
[2019-09-07 16:00] VITALS: BP 121/75
[2019-09-07 20:00] VITALS: BP 156/109
[2019-09-07] MEDS: Iron Sucrose 100 MG in NS 55 ML IV SCH (21:41)
[2019-09-08] VITALS: BP 153/94
[2019-09-08] MEDS: Ketorolac 30mg Inj IV PRN (00:11)
[2019-09-08] MEDS: HYDROmorphone 1mg/ml Carpuject IVP PRN ×6 (01:02→23:10)
[2019-09-08] MEDS: DiphenhydrAMINE 50mg/ml Inj IVP PRN ×3 (02:48→17:04)
[2019-09-08 04:00] VITALS: BP 152/94
--- NOTE | 2019-09-08 06:45 | General Progress Note ---
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 - Congenital malformations of intestinal fixation SNOMED: 27132291 (3) UTI (urinary tract infection) ICD Codes: N39.0 - Urinary tract infection, site not specified SNOMED: 29326813 (4) Substance abuse ICD Codes: F19.10 - Other psychoactive substance abuse, uncomplicated SNOMED: 61505241 (5) Abdominal pain ICD Codes: R10.9 - Unspecified abdominal pain SNOMED: 93453994 (6) Anemia ICD Codes: D64.9 - Anemia, unspecified SNOMED: 159852537 Assessment/Plan: ivf pain control fu labs avoid THC advance diet>>on low fat iv iron fu labs needs pain management Subjective ROS Limited/Unobtainable: Yes Allergies: Coded Allergies: No Known Allergies (Unverified , 06/16/18) Objective Last 24 Hour Vital Signs Date Time Temp Pulse Resp B/P (MAP) Pulse Ox O2 Delivery O2 Flow Rate FiO2 09/08/19 04:00 98.2 76 18 152/94 (113) 99 09/08/19 00:00 98.9 74 18 153/94 (113) 99 09/07/19 21:00 Room Air 09/07/19 20:00 98.6 70 17 156/109 (125) 99 09/07/19 16:00 97.4 78 18 121/75 (90) 99 09/07/19 12:00 97.4 72 18 118/81 (93) 100 09/07/19 09:00 Room Air 09/07/19 08:00 97.0 74 18 138/95 (109) 100 Intake and Output 09/07/19 09/08/19 19:00 07:00 Intake Total 540 ml 1000 ml Balance 540 ml 1000 ml Intake Oral 540 ml 200 ml IV Total 800 ml # Voids 2 2 Laboratory Tests 09/08/19 05:35: White Blood Count [Pending], Red Blood Count [Pending], Hemoglobin [Pending], Hematocrit [Pending], Mean Corpuscular Volume [Pending], Mean Corpuscular Hemoglobin [Pending], Mean Corpuscular Hemoglobin Concent [Pending], Red Cell Distribution Width [Pending], Platelet Count [Pending], Mean Platelet Volume [ Pending], Neutrophils (%) (Auto) [Pending], Lymphocytes (%) (Auto) [Pending], Monocytes (%) (Auto) [Pending], Eosinophils (%) (Auto) [Pending], Basophils (%) (Auto) [Pending], Sodium Level [Pending], Potassium Level [Pending], Chloride Level [Pending], Carbon Dioxide Level [Pending], Blood Urea Nitrogen [Pending], Creatinine [Pending], Estimat Glomerular Filtration Rate [Pending], Glucose Level [Pending], Calcium Level [Pending], Total Bilirubin [Pending], Aspartate Amino Transf (AST/SGOT) [Pending], Alanine Aminotransferase (ALT/SGPT) [Pending] , Alkaline Phosphatase [Pending], Total Protein [Pending], Albumin [Pending], Globulin [Pending], Amylase Level [Pending], Lipase [Pending] Height (Feet): 5 Height (Inches): 1.00 Weight (Pounds): 145 General Appearance: alert EENT: normal ENT inspection Neck: supple Cardiovascular: normal rate Respiratory/Chest: decreased breath sounds Abdomen: hypoactive bowel sounds, tender Extremities: non-tender Yakov Medel MD Sep 08, 2019 06:44
[2019-09-08 07:18] LABS: ALANINE AMINOTRANSFERASE 31 U/L (12-78); ALBUMIN 3.1 G/DL (3.4-5.0); ALBUMIN/GLOBULIN RATIO 0.8 (1.0-2.7); ALKALINE PHOSPHATASE 97 U/L (46-116); AMYLASE 66 U/L (25-115); ANION GAP 8 mmol/L (5-15); ASPARTATE AMINO TRANSFERASE 37 U/L (15-37); BILIRUBIN,TOTAL 0.3 MG/DL (0.2-1.0); BLOOD UREA NITROGEN 2 mg/dL (7-18); CALCIUM 8.7 MG/DL (8.5-10.1); CARBON DIOXIDE 25 MMOL/L (21-32); CHLORIDE 104 MMOL/L (98-107); CREATININE 0.7 MG/DL (0.55-1.30); POTASSIUM 3.6 MMOL/L (3.5-5.1); SODIUM 137 MMOL/L (136-145)
[2019-09-08 07:23] LABS: BASOPHILS % (AUTO) 1.2 % (0.0-2.0); EOSINOPHILS % (AUTO) 4.6 % (0.0-3.0); HEMATOCRIT 31.4 % (37.0-47.0); MEAN CORPUSCULAR VOLUME 81 FL (80-99); MONOCYTES % (AUTO) 8.5 % (1.0-10.0); NEUTROPHILS % (AUTO) 60.7 % (45.0-75.0); PLATELET COUNT 128 K/UL (150-450); RED BLOOD COUNT 3.89 M/UL (4.20-5.40); RED CELL DISTRIBUTION WIDTH 21.5 % (11.6-14.8); WHITE BLOOD COUNT 4.8 K/UL (4.8-10.8)
[2019-09-08 08:00] VITALS: BP 145/91
[2019-09-08] MEDS: Docusate 100mg cap ORAL SCH ×3 (09:00→17:04)
[2019-09-08] MEDS: Pantoprazole Inj IVP SCH (09:22)
--- NOTE | 2019-09-08 09:52 | General Progress Note ---
Assessment/Plan Assessment/Plan: (1) Abdominal pain (2) Acute Pancreatitis (3) Substance abuse Patient to be continued on Dilaudid changed to Q4h PRN. D/w Dr. Gupta and he concurred Subjective Date patient seen: Sep 08, 2019 Time patient seen: 09:15 - am Constitutional: Reports: weakness HEENT: Reports: no symptoms Cardiovascular: Reports: no symptoms Respiratory: Reports: no symptoms Gastrointestinal/Abdominal: Reports: abdominal pain Genitourinary: Reports: no symptoms Neurologic/Psychiatric: Reports: no symptoms Endocrine: Reports: no symptoms Hematologic/Lymphatic: Reports: no symptoms Allergies: Coded Allergies: No Known Allergies (Unverified , 06/16/18) Subjective Patient continues to c/o severe pain. Dilaudid not lasting 6 hours. Objective Last 24 Hour Vital Signs Date Time Temp Pulse Resp B/P (MAP) Pulse Ox O2 Delivery O2 Flow Rate FiO2 09/08/19 04:00 98.2 76 18 152/94 (113) 99 09/08/19 00:00 98.9 74 18 153/94 (113) 99 09/07/19 21:00 Room Air 09/07/19 20:00 98.6 70 17 156/109 (125) 99 09/07/19 16:00 97.4 78 18 121/75 (90) 99 09/07/19 12:00 97.4 72 18 118/81 (93) 100 Intake and Output 09/07/19 09/08/19 19:00 07:00 Intake Total 540 ml 1100 ml Balance 540 ml 1100 ml Intake Oral 540 ml 200 ml IV Total 900 ml # Voids 2 2 Laboratory Tests 09/08/19 05:35: White Blood Count 4.8, Red Blood Count 3.89L, Hemoglobin 9.0L, Hematocrit 31.4L , Mean Corpuscular Volume 81, Mean Corpuscular Hemoglobin 23.3L, Mean Corpuscular Hemoglobin Concent 28.8L, Red Cell Distribution Width 21.5H, Platelet Count 128L, Mean Platelet Volume 7.0, Neutrophils (%) (Auto) 60.7, Lymphocytes (%) (Auto) 25.0, Monocytes (%) (Auto) 8.5, Eosinophils (%) (Auto) 4.6H, Basophils (%) (Auto) 1.2, Sodium Level 137, Potassium Level 3.6, Chloride Level 104, Carbon Dioxide Level 25, Anion Gap 8, Blood Urea Nitrogen 2L, Creatinine 0.7, Estimat Glomerular Filtration Rate > 60, Glucose Level 112H, Calcium Level 8.7, Total Bilirubin 0.3, Aspartate Amino Transf (AST/SGOT) 37, Alanine Aminotransferase (ALT/SGPT) 31, Alkaline Phosphatase 97, Total Protein 7.0, Albumin 3.1L, Globulin 3.9, Albumin/Globulin Ratio 0.8L, Amylase Level 66, Lipase 677H Height (Feet): 5 Height (Inches): 1.00 Weight (Pounds): 145 General Appearance: no apparent distress, alert EENT: PERRL/EOMI, normal ENT inspection Neck: non-tender, normal alignment Cardiovascular: normal rate, regular rhythm Respiratory/Chest: lungs clear, normal breath sounds Abdomen: tender Extremities: non-tender Edema: no edema noted Generalized Neurologic: alert, oriented x 3 Skin: normal pigmentation Odell Rowe Sep 08, 2019 09:52
[2019-09-08 12:00] VITALS: BP 148/99
--- NOTE | 2019-09-08 12:21 | General Progress Note ---
Assessment/Plan Assessment/Plan: S: I am in pain O: tolating po diet. no BM as of yet. PHYSICAL EXAMINATION:HEAD AND NECK: Atraumatic and normocephalic. CHEST: Clear to auscultation.HEART: S1 and S2. Regular rate and rhythm. ABDOMEN: Soft. Positive for tenderness on deep palpation. NEUROLOGIC: The patient is awake and alert. MUSCULOSKELETAL: No gross focal motor deficit. LABORATORY DATA: Dated 09/08/2019 reviewed ASSESSMENT AND PLAN: 1. Acute alcoholic pancreatitis. 2. Hypokalemia. 3. Anemia. 4. GI and DVT prophylaxis. PLAN OF CARE: advance diet once tolerated june fu as op notes from pain mgt reviewed Subjective Allergies: Coded Allergies: No Known Allergies (Unverified , 06/16/18) Objective Last 24 Hour Vital Signs Date Time Temp Pulse Resp B/P (MAP) Pulse Ox O2 Delivery O2 Flow Rate FiO2 09/08/19 11:21 98.3 09/08/19 08:00 98.3 71 18 145/91 (109) 99 09/08/19 04:00 98.2 76 18 152/94 (113) 99 09/08/19 00:00 98.9 74 18 153/94 (113) 99 09/07/19 21:00 Room Air 09/07/19 20:00 98.6 70 17 156/109 (125) 99 09/07/19 16:00 97.4 78 18 121/75 (90) 99 Intake and Output 09/07/19 09/08/19 19:00 07:00 Intake Total 540 ml 1100 ml Balance 540 ml 1100 ml Intake Oral 540 ml 200 ml IV Total 900 ml # Voids 2 2 Laboratory Tests 09/08/19 05:35: White Blood Count 4.8, Red Blood Count 3.89L, Hemoglobin 9.0L, Hematocrit 31.4L , Mean Corpuscular Volume 81, Mean Corpuscular Hemoglobin 23.3L, Mean Corpuscular Hemoglobin Concent 28.8L, Red Cell Distribution Width 21.5H, Platelet Count 128L, Mean Platelet Volume 7.0, Neutrophils (%) (Auto) 60.7, Lymphocytes (%) (Auto) 25.0, Monocytes (%) (Auto) 8.5, Eosinophils (%) (Auto) 4.6H, Basophils (%) (Auto) 1.2, Sodium Level 137, Potassium Level 3.6, Chloride Level 104, Carbon Dioxide Level 25, Anion Gap 8, Blood Urea Nitrogen 2L, Creatinine 0.7, Estimat Glomerular Filtration Rate > 60, Glucose Level 112H, Calcium Level 8.7, Total Bilirubin 0.3, Aspartate Amino Transf (AST/SGOT) 37, Alanine Aminotransferase (ALT/SGPT) 31, Alkaline Phosphatase 97, Total Protein 7.0, Albumin 3.1L, Globulin 3.9, Albumin/Globulin Ratio 0.8L, Amylase Level 66, Lipase 677H Height (Feet): 5 Height (Inches): 1.00 Weight (Pounds): 145 Radha Lopez MD Sep 08, 2019 12:21
[2019-09-08] MEDS: D5NS 1,000 ML IV SCH ×3 (13:02→23:10)
[2019-09-08 16:00] VITALS: BP 150/93
[2019-09-08 20:00] VITALS: BP 139/98
[2019-09-08] MEDS: Miralax 17gm pkt ORAL SCH (20:18)
[2019-09-08] MEDS: Iron Sucrose 100 MG in NS 55 ML IV SCH (20:18)
[2019-09-09] VITALS: BP 140/82
[2019-09-09] MEDS: DiphenhydrAMINE 50mg/ml Inj IVP PRN (01:14)
[2019-09-09] MEDS: HYDROmorphone 1mg/ml Carpuject IVP PRN ×2 (03:15→07:25)
[2019-09-09 04:00] VITALS: BP 151/99
[2019-09-09 06:27] LABS: BASOPHILS % (AUTO) 1.2 % (0.0-2.0); EOSINOPHILS % (AUTO) 6.3 % (0.0-3.0); HEMATOCRIT 32.6 % (37.0-47.0); HEMOGLOBIN 9.4 G/DL (12.0-16.0); LYMPHOCYTES % (AUTO) 30.4 % (20.0-45.0); MEAN CORPUSCULAR VOLUME 81 FL (80-99); MONOCYTES % (AUTO) 7.9 % (1.0-10.0); NEUTROPHILS % (AUTO) 54.2 % (45.0-75.0); PLATELET COUNT 137 K/UL (150-450); RED BLOOD COUNT 4.04 M/UL (4.20-5.40); RED CELL DISTRIBUTION WIDTH 21.3 % (11.6-14.8); WHITE BLOOD COUNT 4.2 K/UL (4.8-10.8)
[2019-09-09 06:40] LABS: ALANINE AMINOTRANSFERASE 30 U/L (12-78); ALBUMIN 3.1 G/DL (3.4-5.0); ALBUMIN/GLOBULIN RATIO 0.8 (1.0-2.7); ALKALINE PHOSPHATASE 88 U/L (46-116); AMYLASE 66 U/L (25-115); ANION GAP 9 mmol/L (5-15); ASPARTATE AMINO TRANSFERASE 37 U/L (15-37); BILIRUBIN,TOTAL 0.3 MG/DL (0.2-1.0); BLOOD UREA NITROGEN 1 mg/dL (7-18); CALCIUM 8.6 MG/DL (8.5-10.1); CARBON DIOXIDE 24 MMOL/L (21-32); CHLORIDE 104 MMOL/L (98-107); CREATININE 0.8 MG/DL (0.55-1.30); POTASSIUM 2.9 MMOL/L (3.5-5.1); SODIUM 137 MMOL/L (136-145)
[2019-09-09 08:00] VITALS: BP 125/81
[2019-09-09] MEDS: Pantoprazole Inj IVP SCH (08:11)
[2019-09-09] MEDS: Docusate 100mg cap ORAL SCH (08:11)
--- NOTE | 2019-09-09 08:51 | General Progress Note ---
Assessment/Plan Assessment/Plan: (1) Abdominal pain (2) Acute Pancreatitis (3) Substance abuse Patient to be discontinued off Dilaudid We will start Percocet 5/325mg PO 1 tab Q4H PRN severe pain. D/w Dr. Gupta and he concurred Subjective Date patient seen: Sep 09, 2019 Time patient seen: 08:30 - am Constitutional: Reports: weakness HEENT: Reports: no symptoms Cardiovascular: Reports: no symptoms Respiratory: Reports: no symptoms Gastrointestinal/Abdominal: Reports: abdominal pain Genitourinary: Reports: no symptoms Neurologic/Psychiatric: Reports: no symptoms Endocrine: Reports: no symptoms Hematologic/Lymphatic: Reports: no symptoms Allergies: Coded Allergies: No Known Allergies (Unverified , 06/16/18) Subjective Patient has increased her diet as per GI, D/w GI. At this time continues to c/o pain. D/w patient about transition from IV to oral tabs and she seems to understand. Objective Last 24 Hour Vital Signs Date Time Temp Pulse Resp B/P (MAP) Pulse Ox O2 Delivery O2 Flow Rate FiO2 09/09/19 07:55 98.8 09/09/19 04:00 98.8 78 19 151/99 (116) 98 09/09/19 00:00 98.6 72 18 140/82 (101) 100 09/08/19 21:00 Room Air 09/08/19 20:00 98.6 67 16 139/98 (112) 100 09/08/19 16:00 97.8 67 16 150/93 (112) 100 09/08/19 12:00 98.6 72 18 148/99 (115) 98 09/08/19 09:00 Room Air Intake and Output 09/08/19 09/09/19 19:00 07:00 Intake Total 500 ml 1560 ml Balance 500 ml 1560 ml Intake Oral 500 ml 400 ml IV Total 1160 ml # Voids 4 3 Laboratory Tests 09/09/19 05:35: White Blood Count 4.2L, Red Blood Count 4.04L, Hemoglobin 9.4L, Hematocrit 32.6L , Mean Corpuscular Volume 81, Mean Corpuscular Hemoglobin 23.4L, Mean Corpuscular Hemoglobin Concent 29.0L, Red Cell Distribution Width 21.3H, Platelet Count 137L, Mean Platelet Volume 7.1, Neutrophils (%) (Auto) 54.2, Lymphocytes (%) (Auto) 30.4, Monocytes (%) (Auto) 7.9, Eosinophils (%) (Auto) 6.3H, Basophils (%) (Auto) 1.2, Sodium Level 137, Potassium Level 2.9L, Chloride Level 104, Carbon Dioxide Level 24, Anion Gap 9, Blood Urea Nitrogen 1L , Creatinine 0.8, Estimat Glomerular Filtration Rate > 60, Glucose Level 118H, Calcium Level 8.6, Total Bilirubin 0.3, Aspartate Amino Transf (AST/SGOT) 37, Alanine Aminotransferase (ALT/SGPT) 30, Alkaline Phosphatase 88, Total Protein 7.1, Albumin 3.1L, Globulin 4.0, Albumin/Globulin Ratio 0.8L, Amylase Level 66, Lipase 589H Height (Feet): 5 Height (Inches): 1.00 Weight (Pounds): 145 General Appearance: no apparent distress, alert EENT: PERRL/EOMI, normal ENT inspection Neck: non-tender, normal alignment Cardiovascular: normal rate, regular rhythm Respiratory/Chest: lungs clear, normal breath sounds Abdomen: soft, tender Extremities: non-tender Edema: no edema noted Generalized Neurologic: alert, oriented x 3 Skin: normal pigmentation Odell Rowe Sep 09, 2019 08:51
[2019-09-09] MEDS ORDERED: HYDROmorphone 1mg/ml Carpuject IVP PRN (10:00)
[2019-09-09] MEDS: D5NS 1,000 ML IV SCH (10:07)
--- NOTE | 2019-09-09 10:43 | General Progress Note ---
Assessment/Plan Problem List: (1) Pancreatitis ICD Codes: K85.90 - Acute pancreatitis without necrosis or infection, unspecified SNOMED: 29752990 (2) Congenital malrotation of intestine ICD Codes: Q43.3 - Congenital malformations of intestinal fixation SNOMED: 17141133 (3) UTI (urinary tract infection) ICD Codes: N39.0 - Urinary tract infection, site not specified SNOMED: 76215747 (4) Substance abuse ICD Codes: F19.10 - Other psychoactive substance abuse, uncomplicated SNOMED: 17986411 (5) Abdominal pain ICD Codes: R10.9 - Unspecified abdominal pain SNOMED: 88927191 (6) Anemia ICD Codes: D64.9 - Anemia, unspecified SNOMED: 311613499 Assessment/Plan: ivf pain control fu labs avoid THC advance diet>>on low fat iv iron fu labs needs pain management Subjective ROS Limited/Unobtainable: No Allergies: Coded Allergies: No Known Allergies (Unverified , 06/16/18) Objective Last 24 Hour Vital Signs Date Time Temp Pulse Resp B/P (MAP) Pulse Ox O2 Delivery O2 Flow Rate FiO2 09/09/19 09:00 Room Air 09/09/19 08:00 98.4 70 20 125/81 (96) 97 09/09/19 07:55 98.8 09/09/19 04:00 98.8 78 19 151/99 (116) 98 09/09/19 00:00 98.6 72 18 140/82 (101) 100 09/08/19 21:00 Room Air 09/08/19 20:00 98.6 67 16 139/98 (112) 100 09/08/19 16:00 97.8 67 16 150/93 (112) 100 09/08/19 12:00 98.6 72 18 148/99 (115) 98 Intake and Output 09/08/19 09/09/19 19:00 07:00 Intake Total 500 ml 1560 ml Balance 500 ml 1560 ml Intake Oral 500 ml 400 ml IV Total 1160 ml # Voids 4 3 Laboratory Tests 09/09/19 05:35: White Blood Count 4.2L, Red Blood Count 4.04L, Hemoglobin 9.4L, Hematocrit 32.6L , Mean Corpuscular Volume 81, Mean Corpuscular Hemoglobin 23.4L, Mean Corpuscular Hemoglobin Concent 29.0L, Red Cell Distribution Width 21.3H, Platelet Count 137L, Mean Platelet Volume 7.1, Neutrophils (%) (Auto) 54.2, Lymphocytes (%) (Auto) 30.4, Monocytes (%) (Auto) 7.9, Eosinophils (%) (Auto) 6.3H, Basophils (%) (Auto) 1.2, Sodium Level 137, Potassium Level 2.9L, Chloride Level 104, Carbon Dioxide Level 24, Anion Gap 9, Blood Urea Nitrogen 1L , Creatinine 0.8, Estimat Glomerular Filtration Rate > 60, Glucose Level 118H, Calcium Level 8.6, Total Bilirubin 0.3, Aspartate Amino Transf (AST/SGOT) 37, Alanine Aminotransferase (ALT/SGPT) 30, Alkaline Phosphatase 88, Total Protein 7.1, Albumin 3.1L, Globulin 4.0, Albumin/Globulin Ratio 0.8L, Amylase Level 66, Lipase 589H Height (Feet): 5 Height (Inches): 1.00 Weight (Pounds): 145 General Appearance: alert EENT: normal ENT inspection Neck: supple Cardiovascular: normal rate Respiratory/Chest: decreased breath sounds Abdomen: normal bowel sounds, non tender, soft Extremities: non-tender Yakov Medel MD Sep 09, 2019 10:43
--- NOTE | 2019-09-09 11:04 | General Progress Note ---
Assessment/Plan Assessment/Plan: S: I am in pain O: tolerating po diet. no BM as of yet. PHYSICAL EXAMINATION:HEAD AND NECK: Atraumatic and normocephalic. CHEST: Clear to auscultation.HEART: S1 and S2. Regular rate and rhythm. ABDOMEN: Soft. Positive for tenderness on deep palpation. NEUROLOGIC: The patient is awake and alert. MUSCULOSKELETAL: No gross focal motor deficit. LABORATORY DATA: Dated 09/09/2019 reviewed ASSESSMENT AND PLAN: 1. Acute alcoholic pancreatitis. 2. Hypokalemia. 3. Anemia. 4. GI and DVT prophylaxis. PLAN OF CARE: advance diet once clear from GI view point june as op notes from pain GI and mgt reviewed Subjective Allergies: Coded Allergies: No Known Allergies (Unverified , 06/16/18) Objective Last 24 Hour Vital Signs Date Time Temp Pulse Resp B/P (MAP) Pulse Ox O2 Delivery O2 Flow Rate FiO2 09/09/19 09:00 Room Air 09/09/19 08:00 98.4 70 20 125/81 (96) 97 09/09/19 07:55 98.8 09/09/19 04:00 98.8 78 19 151/99 (116) 98 09/09/19 00:00 98.6 72 18 140/82 (101) 100 09/08/19 21:00 Room Air 09/08/19 20:00 98.6 67 16 139/98 (112) 100 09/08/19 16:00 97.8 67 16 150/93 (112) 100 09/08/19 12:00 98.6 72 18 148/99 (115) 98 Intake and Output 09/08/19 09/09/19 19:00 07:00 Intake Total 500 ml 1560 ml Balance 500 ml 1560 ml Intake Oral 500 ml 400 ml IV Total 1160 ml # Voids 4 3 Laboratory Tests 09/09/19 05:35: White Blood Count 4.2L, Red Blood Count 4.04L, Hemoglobin 9.4L, Hematocrit 32.6L , Mean Corpuscular Volume 81, Mean Corpuscular Hemoglobin 23.4L, Mean Corpuscular Hemoglobin Concent 29.0L, Red Cell Distribution Width 21.3H, Platelet Count 137L, Mean Platelet Volume 7.1, Neutrophils (%) (Auto) 54.2, Lymphocytes (%) (Auto) 30.4, Monocytes (%) (Auto) 7.9, Eosinophils (%) (Auto) 6.3H, Basophils (%) (Auto) 1.2, Sodium Level 137, Potassium Level 2.9L, Chloride Level 104, Carbon Dioxide Level 24, Anion Gap 9, Blood Urea Nitrogen 1L , Creatinine 0.8, Estimat Glomerular Filtration Rate > 60, Glucose Level 118H, Calcium Level 8.6, Total Bilirubin 0.3, Aspartate Amino Transf (AST/SGOT) 37, Alanine Aminotransferase (ALT/SGPT) 30, Alkaline Phosphatase 88, Total Protein 7.1, Albumin 3.1L, Globulin 4.0, Albumin/Globulin Ratio 0.8L, Amylase Level 66, Lipase 589H Height (Feet): 5 Height (Inches): 1.00 Weight (Pounds): 145 Radah Lopez MD Sep 09, 2019 11:03
[2019-09-09] MEDS ORDERED: oxyCODONE HCL/Acetaminophen 5/325mg ORAL PRN (11:30)
[2019-09-09 12:00] VITALS: BP 142/89
[2019-09-09 16:00] VITALS: BP 115/65
--- NOTE | 2019-09-11 12:14 | Discharge Summary ---
Discharge Summary Discharge Summary _ DATE OF ADMISSION: 09/05/2019 DATE OF DISCHARGE: 09/09/2019 DISCHARGED BY: Dr Lopez REASON FOR ADMISSION: 34 years old female with past medical history of pancreatitis, alcohol abuse, volvulus, presented due to epigastric abdominal pain. Pain started earlier in the morning and rated as 9 out of 10 on a scale 1-10. Patient reported drinking alcohol last night. No reported nausea and vomiting. No fever or chills. No cough or shortness of breath. No urinary complaints. Laboratory work-up revealed no leukocytosis, hemoglobin 9.8, hematocrit 32.4, platelet count 179. Lipase 949 ,amylase 118. AST 62, ALT 41. Potassium 3.4. BUN 3, creatinine 0.8. Urinalysis revealed no evidence of urinary tract infection Urine toxicology screen was positive for marijuana. Serum alcohol level was 84. Patient received hydration , analgesic and admitted for further management . CONSULTANTS: GI specialist Dr. Medel Pain specialist Dr. Gupta [facility] COURSE: Patient admitted to medical surgical floor . Patient was kept n.p.o. initially and started on IV fluids. Potassium was replaced. Pain management was addressed as per pain specialist recommendation. GI specialist followed. Abdominal ultrasound revealed moderate fatty infiltration of the liver , otherwise unremarkable. Patient slowly started on diet and was advanced as tolerated. Lipase trended down. Amylase down to normal. Lipid panel revealed elevated total cholesterol of 216 , stable triglycerides 146. Patient was on IV iron. DVT and GI prophylaxis provided . Bowel regimen instituted . Patient was counseled on cessation of alcohol . Patient was counseled on low-fat diet. Patient was recommended to avoid THC. Patient clinically stabilized and was ready for discharge . FINAL DIAGNOSES: Acute alcoholic pancreatitis Anemia iron deficiency Hypokalemia Substance abuse Abdominal pain due to acute pancreatitis -resolved Congenital malrotation of intestine DISCHARGE MEDICATIONS: See Medication Reconciliation list. DISCHARGE INSTRUCTIONS: Patient was discharged home Patient was counseled on abstinence from EtOH. Follow-up with a primary care provider in 1 week I have been assigned to dictate discharge summary for this account. I was not involved in the patient's management. Barbara Boland NP Sep 11, 2019 12:14
== END 2019-09-09 17:00 | disposition home or self-care (01) | DRG 282 ==
LOC: EMR 08:00 → 4E 09:55 → EDBEDREQ 10:45 → 3E 09-07 20:51
DX: K85.20 Alcohol induced acute pancreatitis without necrosis or infection (principal); E87.6 Hypokalemia; Q43.3 Congenital malformations of intestinal fixation; F10.20 Alcohol dependence, uncomplicated; N39.0 Urinary tract infection, site not specified; F19.10 Other psychoactive substance abuse, uncomplicated; F17.200 Nicotine dependence, unspecified, uncomplicated; Z59.0 Homelessness; D50.9 Iron deficiency anemia, unspecified
CPT/HCPCS: 36415; 76700; 80053; 80061; 80307; 81003; 81025; 82150; 83540; 83550; 83690; 85025; 90471; 90715; 96374; 96375; 96376; 99285; G0480; J2405; J7030; J8499

== ENCOUNTER 2020-03-08 03:37 | Emergency (ER) | payer MEDICAID ==
[~2020-03-08] VITALS: Ht 160 cm; Wt 74.8 kg
--- NOTE | 2020-03-08 03:44 | Emergency Room Report ---
History of Present Illness General Chief Complaint: Abdominal Pain Present Illness HPI 34-year-old female with history of pancreatitis, alcoholism, chronic volvulus here with epigastric abdominal pain. Patient reports drinking alcohol frequently over the past several days to weeks. Began having epigastric abdominal pain yesterday and it has gradually worsened. Says she has been vomiting nonbilious nonbloody. Pain is sharp in nature, located in the epigastric region, says that she feels the pain diffusely. Denies fevers, chills, chest pain, palpitation, shortness of breath, back pain, diarrhea, dysuria. (Romeo Chapa M.D.) Allergies: Coded Allergies: No Known Allergies (Unverified , 06/16/18) COVID-19 Screening Contact w/high risk pt: No Recent Travel to affected area: No Experienced COVID-19 symptoms?: No (Romeo Chapa M.D.) Nursing Documentation-PMH Hx Cardiac Problems: No Hx Hypertension: No Hx Pacemaker: No Hx Asthma: No Hx COPD: No Hx Diabetes: No Hx Cancer: No Hx Gastrointestinal Problems: Yes - pancreatitis Hx Dialysis: No Hx Neurological Problems: No Hx Cerebrovascular Accident: No Hx Seizures: No (Romeo Chapa M.D.) Review of Systems All Other Systems: negative except mentioned in HPI (Romeo Chapa M.D.) Physical Exam Sp02 EP Interpretation: reviewed, normal General Appearance: alert, non-toxic, moderate distress, other - Writhing in pain clutching abdomen Head: normocephalic, atraumatic Eyes: bilateral eye normal inspection, bilateral eye PERRL ENT: hearing grossly normal, normal pharynx, no angioedema, normal voice Neck: full range of motion, supple/symm/no masses Respiratory: chest non-tender, lungs clear, normal breath sounds, speaking full sentences Cardiovascular #1: regular rate, rhythm, no edema Cardiovascular #2: 2+ carotid (R), 2+ carotid (L), 2+ radial (R), 2+ radial (L), 2+ dorsalis pedis (R), 2+ dorsalis pedis (L) Gastrointestinal: normal bowel sounds, soft, non-distended, no guarding, no rebound, other - Subjective tenderness on palpation diffusely. Abdomen soft. No rebound or guarding. No distention Rectal: deferred Genitourinary: normal inspection, no CVA tenderness Musculoskeletal: back normal, normal range of motion, gait/station normal, non- tender Neurologic: alert, motor strength/tone normal, oriented x3, sensory intact, responsive, speech normal Psychiatric: judgement/insight normal, memory normal, mood/affect normal, no suicidal/homicidal ideation Lymphatic: no adenopathy (Romeo Chapa M.D.) Medical Decision Making Diagnostic Impression: Primary Impression: Abdominal pain Additional Impressions: Alcohol intoxication Ovarian cyst ER Course Laboratory Tests Test 03/08/20 03:50 White Blood Count 4.7 K/UL (4.8-10.8) L Red Blood Count 4.27 M/UL (4.20-5.40) Hemoglobin 10.0 G/DL (12.0-16.0) L Hematocrit 33.8 % (37.0-47.0) L Mean Corpuscular Volume 79 FL (80-99) L Mean Corpuscular Hemoglobin 23.4 PG (27.0-31.0) L Mean Corpuscular Hemoglobin Concent 29.6 G/DL (32.0-36.0) L Red Cell Distribution Width 18.1 % (11.6-14.8) H Platelet Count 212 K/UL (150-450) Mean Platelet Volume 6.6 FL (6.5-10.1) Neutrophils (%) (Auto) 37.2 % (45.0-75.0) L Lymphocytes (%) (Auto) 50.1 % (20.0-45.0) H Monocytes (%) (Auto) 7.7 % (1.0-10.0) Eosinophils (%) (Auto) 2.6 % (0.0-3.0) Basophils (%) (Auto) 2.5 % (0.0-2.0) H Sodium Level 139 MMOL/L (136-145) Potassium Level 3.9 MMOL/L (3.5-5.1) Chloride Level 103 MMOL/L (98-107) Carbon Dioxide Level 23 MMOL/L (21-32) Anion Gap 13 mmol/L (5-15) Blood Urea Nitrogen 5 mg/dL (7-18) L Creatinine 0.7 MG/DL (0.55-1.30) Estimated Glomerular Filtration Rate > 60 mL/min (>60) Glucose Level 100 MG/DL (74-106) Calcium Level 8.7 MG/DL (8.5-10.1) Total Bilirubin 0.2 MG/DL (0.2-1.0) Aspartate Amino Transferase (AST) 80 U/L (15-37) H Alanine Aminotransferase (ALT) 32 U/L (12-78) Alkaline Phosphatase < 10 U/L (46-116) L Total Protein Pending Albumin 3.6 G/DL (3.4-5.0) Globulin Pending Lipase 158 U/L (73-393) Serum Alcohol 306 mg/dL 34-year-old female here with abdominal pain. Patient was writhing in pain and demanding Dilaudid on arrival to the emergency department. She was given morp benny and Benadryl and on reevaluation was laying calmly in the bed. However she then began saying again that "Dilaudid is the only thing that works for me." Given 1 mg of Dilaudid and was seen sleeping comfortably in the ER. Claimed that she had not had any drugs or alcohol tonight. However alcohol level was highly elevated at 306. Lipase within normal limits. CBC and CMP largely normal. Currently awaiting results of CT scan. Signed out to oncoming physician. (Romeo Chapa M.D.) ER Course This patient was turned over to me from Dr. Chapa. The patient has a history of alcohol abuse, pancreatitis and a history of high narcotic tolerance. Please see Dr. Chapa's history and physical for details. Briefly, the patient had presented with diffuse abdominal pain and alcohol intoxication. The patient was turned over to me awaiting final report of the CT abdomen and pelvis with plans that if the CT was nonsurgical this patient could be discharged home. CT of the abdomen and pelvis did show a right ovarian cyst measuring 1.5 cm. There is no other acute findings. Laboratory work-up was benign. The patient was sleeping and resting comfortably on my reevaluation. At this time I did not identify an emergency medical condition. The patient was allowed to sober up in the emergency department and was able to ambulate and articulate desire to go home. The patient was clinically sober at the time of discharge. No acute emergency medical condition is identified. The patient was educated on the dangers of alcohol intoxication and abuse. The patient was given a list of the local rehabilitation clinics. Laboratory Tests Test 03/08/20 03:50 White Blood Count 4.7 K/UL (4.8-10.8) L Red Blood Count 4.27 M/UL (4.20-5.40) Hemoglobin 10.0 G/DL (12.0-16.0) L Hematocrit 33.8 % (37.0-47.0) L Mean Corpuscular Volume 79 FL (80-99) L Mean Corpuscular Hemoglobin 23.4 PG (27.0-31.0) L Mean Corpuscular Hemoglobin Concent 29.6 G/DL (32.0-36.0) L Red Cell Distribution Width 18.1 % (11.6-14.8) H Platelet Count 212 K/UL (150-450) Mean Platelet Volume 6.6 FL (6.5-10.1) Neutrophils (%) (Auto) 37.2 % (45.0-75.0) L Lymphocytes (%) (Auto) 50.1 % (20.0-45.0) H Monocytes (%) (Auto) 7.7 % (1.0-10.0) Eosinophils (%) (Auto) 2.6 % (0.0-3.0) Basophils (%) (Auto) 2.5 % (0.0-2.0) H Sodium Level 139 MMOL/L (136-145) Potassium Level 3.9 MMOL/L (3.5-5.1) Chloride Level 103 MMOL/L (98-107) Carbon Dioxide Level 23 MMOL/L (21-32) Anion Gap 13 mmol/L (5-15) Blood Urea Nitrogen 5 mg/dL (7-18) L Creatinine 0.7 MG/DL (0.55-1.30) Estimated Glomerular Filtration Rate > 60 mL/min (>60) Glucose Level 100 MG/DL (74-106) Calcium Level 8.7 MG/DL (8.5-10.1) Total Bilirubin 0.2 MG/DL (0.2-1.0) Aspartate Amino Transferase (AST) 80 U/L (15-37) H Alanine Aminotransferase (ALT) 32 U/L (12-78) Alkaline Phosphatase < 10 U/L (46-116) L Total Protein 8.2 G/DL (6.4-8.2) Albumin 3.6 G/DL (3.4-5.0) Globulin 4.6 g/dL Lipase 158 U/L (73-393) Serum Alcohol 306 mg/dL (Esperanza Cortes DO) CT/MRI/US Diagnostic Results CT/MRI/US Diagnostic Results : Imaging Test Ordered: CT abd/pelvis Impression IMPRESSION: 1. Involuting right ovarian cyst measures 1.5 cm. If there is right adnexal or pelvic pain correlate with ultrasound as there is also mild free fluid in the cul-de-sac. Ruptures is not excluded. 2. Calcifications throughout the pancreas consistent with sequelae of chronic pancreatitis. If there is concern for acute pancreatitis, correlate with amylase/lipase however, there is no significant peripancreatic fluid. 3. Hepatic steatosis. (Esperanza Cortes DO) Status: improved (Esperanza Cortes DO) Disposition: HOME, SELF-CARE Condition: Improved Scripts Ibuprofen* (MOTRIN*) 600 Mg Tablet 600 MG ORAL Q6H PRN for FOR PAIN, #20 TAB 0 Refills Prov: Romeo Chapa M.D. 03/08/20 Romeo Chapa M.D. Mar 08, 2020 03:44 Esperanza Cortes DO Mar 08, 2020 07:08
[2020-03-08] MEDS ORDERED: Morphine Sulfate 4mg/ml Inj (IV USE ONLY) IVP ONE (03:45)
[2020-03-08] MEDS ORDERED: DiphenhydrAMINE 50mg/ml Inj IVP ONE (03:45)
[2020-03-08 04:05] VITALS: BP 139/80
--- NOTE | 2020-03-08 04:05 | NUR ---
ED Nurse Note: Recieved pt walk in from home with c/o severe abdominal pain, pt was assisted out of car via wheelchair, pt has strong alcohol odor noted on breath but denies use, pt has hx of pancreatitis, pt is awake,alert and oriented x 4, immediately placed on gurney and gowned, placed on cardiac monitoring, IV line placed and labs drawn, pt immediately and constantly asking for dilaudid medication, MD at bedside, will resume care as ordered with close monitoring.
[2020-03-08] MEDS ORDERED: HYDROmorphone 1mg/ml Carpuject IVP ONE ×2 (04:15→06:00)
[2020-03-08] MEDS ORDERED: Omnipaque-300 100ml vial INJ PRN (04:15)
[2020-03-08 04:17] LABS: BASOPHILS % (AUTO) 2.5 % (0.0-2.0); EOSINOPHILS % (AUTO) 2.6 % (0.0-3.0); HEMATOCRIT 33.8 % (37.0-47.0); LYMPHOCYTES % (AUTO) 50.1 % (20.0-45.0); MEAN CORPUSCULAR VOLUME 79 FL (80-99); MONOCYTES % (AUTO) 7.7 % (1.0-10.0); NEUTROPHILS % (AUTO) 37.2 % (45.0-75.0); PLATELET COUNT 212 K/UL (150-450); RED BLOOD COUNT 4.27 M/UL (4.20-5.40); RED CELL DISTRIBUTION WIDTH 18.1 % (11.6-14.8); WHITE BLOOD COUNT 4.7 K/UL (4.8-10.8)
[2020-03-08 04:34] LABS: ANION GAP 13 mmol/L (5-15); BLOOD UREA NITROGEN 5 mg/dL (7-18); CALCIUM 8.7 MG/DL (8.5-10.1); CARBON DIOXIDE 23 MMOL/L (21-32); CHLORIDE 103 MMOL/L (98-107); CREATININE 0.7 MG/DL (0.55-1.30); POTASSIUM 3.9 MMOL/L (3.5-5.1); SODIUM 139 MMOL/L (136-145)
[2020-03-08 04:40] LABS: ALANINE AMINOTRANSFERASE 32 U/L (12-78); ALBUMIN 3.6 G/DL (3.4-5.0); ALKALINE PHOSPHATASE < 10 U/L (46-116); ASPARTATE AMINO TRANSFERASE 80 U/L (15-37); BILIRUBIN,TOTAL 0.2 MG/DL (0.2-1.0)
[2020-03-08] MEDS ORDERED: IBUPROFEN600 M1 ORAL (05:32)
--- NOTE | 2020-03-08 05:45 | NUR ---
ED Nurse Note: All test completed including imaging, pt has very high alcohol level, v/s stable, IV site patent, fluids completed, tolerated well, pt asking for more pain meds, states pain level increased back to 9/10, will re-medicate as ordered and continue to closely monitor.
[2020-03-08 06:00] VITALS: BP 129/76
--- NOTE | 2020-03-08 06:07 | Diagnostic Imaging Report ---
EXAM: CT Abdomen and Pelvis With Intravenous Contrast CLINICAL HISTORY: PAIN TECHNIQUE: Axial computed tomography images of the abdomen and pelvis with intravenous contrast. CTDI is 8.60 mGy and DLP is 474.10 mGy-cm. One or more of the following dose reduction techniques were used: automated exposure control, adjustment of the mA and/or kV according to patient size, use of iterative reconstruction technique. COMPARISON: No relevant prior studies available. FINDINGS: Lung bases: Unremarkable. No mass. No consolidation. ABDOMEN: Liver: Hepatic steatosis. No focal hepatic lesion. Gallbladder and bile ducts: Unremarkable. No calcified stones. No ductal dilation. Pancreas: Calcifications throughout the pancreas consistent with sequelae of chronic pancreatitis. If there is concern for acute pancreatitis, correlate with amylase/lipase however, there is no significant peripancreatic fluid. No ductal dilation. Spleen: Unremarkable. No splenomegaly. Adrenals: Unremarkable. No mass. Kidneys and ureters: Unremarkable. No solid mass. No hydronephrosis. Stomach and bowel: Unremarkable. No obstruction. No mucosal thickening. PELVIS: Appendix: No findings to suggest acute appendicitis. Bladder: Unremarkable. No mass. Reproductive: Unremarkable as visualized. ABDOMEN and PELVIS: Intraperitoneal space: Involuting right ovarian cyst measures 1.5 cm. If there is right adnexal or pelvic pain correlate with ultrasound as there is also mild free fluid in the cul-de-sac. No free air. Bones/joints: No acute fracture. No dislocation. Soft tissues: Small fat-containing umbilical hernia. Vasculature: Unremarkable. No abdominal aortic aneurysm. Lymph nodes: Unremarkable. No enlarged lymph nodes. IMPRESSION: 1. Involuting right ovarian cyst measures 1.5 cm. If there is right adnexal or pelvic pain correlate with ultrasound as there is also mild free fluid in the cul-de-sac. Ruptures is not excluded. 2. Calcifications throughout the pancreas consistent with sequelae of chronic pancreatitis. If there is concern for acute pancreatitis, correlate with amylase/lipase however, there is no significant peripancreatic fluid. 3. Hepatic steatosis.
--- NOTE | 2020-03-08 07:15 | NUR ---
HAND-OFF: Report given to ANGELA Guerin. pt sleeping, arouses easily to verbal stimuli, no s/s of pain or respiratory distress noted, remains on cardiac monitoring, IV site patent, nad noted during shift change.
[2020-03-08 08:00] VITALS: BP 122/70
[2020-03-08] MEDS ORDERED: cefOXitin Sod 1 GM in D5W 55 ML IVPB ONE (08:15)
--- NOTE | 2020-03-08 09:30 | NUR ---
ED Nurse Note: Patient is now AAO x4, ambulates with steady gait. Pt is able to follow commands. Dr Crotes was notified.
[2020-03-08 09:58] VITALS: BP 118/78
== END 2020-03-08 09:58 | disposition home or self-care (01) ==
LOC: EMR 03:48
DX: N83.201 Unspecified ovarian cyst, right side (principal); K76.0 Fatty (change of) liver, not elsewhere classified; K42.9 Umbilical hernia without obstruction or gangrene; F10.129 Alcohol abuse with intoxication, unspecified; Y90.8 Blood alcohol level of 240 mg/100 ml or more
CPT/HCPCS: 36415; 74177; 80053; 83690; 85025; 96361; 96374; 96375; 96376; G0480; J0694; J1170; J1200; J2270; J2405; J7030; Q9965; Z7502; 99284